=== PATIENT | male | born 1990 | race Caucasian/White ===

== ENCOUNTER → 2017-12-17 12:28 | Outpatient (CLI) | payer MEDICAID, SELFPAY ==
--- NOTE | 2017-12-17 12:33 | RAD_ITS ---
STUDY: X-RAY - ABDOMEN/PELVIS REASON FOR EXAM: Male, 27 years old. Abdominal pain x1 week TECHNIQUE: AP supine and upright views of the abdomen and pelvis. COMPARISON: Prior study of 11/12/2014 FINDINGS: Normal visualized lung bases. There is an unremarkable bowel gas pattern. There is no demonstrated free abdominal air. The visualized liver, spleen and kidneys are grossly normal in size and morphology. Normal soft tissue structures. Normal visualized osseous structures. RAD/Abd Inc Decub and/or Erect IMPRESSION: Normal x-ray examination of the abdomen and pelvis. Electronically Signed: Mata Mark MD at 21:47 EDT , Service support ,
== END ==
PROVIDERS: Family Provider Family Medicine; PCP Family Medicine; Visit Provider Family Medicine
DX: R10.9 Unspecified abdominal pain (principal)
CPT/HCPCS: 74019

== ENCOUNTER → 2017-12-27 09:07 | Outpatient (CLI) | payer MEDICAID, SELFPAY ==
--- NOTE | 2017-12-27 09:12 | US_ITS ---
STUDY: ABDOMINAL ULTRASOUND - RIGHT UPPER QUADRANT REASON FOR VISIT: Male, 27 years old. Abdominal pain. TECHNIQUE: Ultrasound evaluation of the right upper quadrant was performed with real-time and static chung-scale imaging. TECHNICAL QUALITY: Adequate. COMPARISON: Comparison is made with prior study dated July 22, 2017. FINDINGS: Liver: The liver measures 14.2 cm. There is increased echogenicity consistent with fatty infiltration. The bile ducts are within normal limits. There is hepatic color flow. The direction of portal flow is hepatopetal. There is no demonstrated mass lesion. Gallbladder: Normal distended gallbladder. The gallbladder wall measures 3.0 mm. There is a negative sonographic Tovar's sign. There is no pericholecystic fluid. There are no gallstones. Once again, echogenic foci are seen adherent to the gallbladder wall suggestive of gallbladder polyps. Common Bile Duct (C.B.D.): The common bile duct measures 4.0 mm. Pancreas: There is nonvisualization of the pancreas due to overlying bowel gas. Right Kidney: Normal size of the right kidney. The right kidney measures 11.5 cm x 5.5 cm x 4.5 cm. Normal renal cortex. The right cortex measures 1.5 cm. There is no demonstrated renal mass or cyst. There is no right hydronephrosis. US/Abdomen Limited IMPRESSION: Fatty infiltration of the liver. Findings suggestive of gallbladder polyps. Electronically Signed: Wil Motley MD at 11:09 EDT Tel [phone], Service support ,
== END ==
PROVIDERS: Family Provider Family Medicine; PCP Family Medicine; Visit Provider Family Medicine
DX: R10.9 Unspecified abdominal pain (principal)
CPT/HCPCS: 76705

== ENCOUNTER → 2018-01-02 11:36 | Outpatient (CLI) | payer MEDICAID, SELFPAY ==
--- NOTE | 2018-01-02 11:37 | NM_ITS ---
CLINICAL: 27-year-old male with reported history of abdominal pain. RADIONUCLIDE HEPATOBILIARY SCINTIGRAPHY COMPARISON: Abdominal ultrasound report 12/27/2017 FINDINGS: Following the intravenous administration of 6.0 mCi of 99m Tc Mebrofenin, hepatobiliary images reveal: 1. Relatively prompt and homogeneous radiopharmaceutical concentration is noted by a normal sized liver. No parenchymal defects are identified. 2. Gallbladder activity is identified at 15 minutes post radiopharmaceutical administration. 3. Small intestinal tract is observed at 60 minutes following tracer injection. 4. Washout of the radiopharmaceutical by the hepatic parenchyma appears qualitatively normal. NM/Hepatobilliary Imaging IMPRESSION: 1. NORMAL 99m Tc Mebrofenin hepatobiliary imaging examination. A. Visualization of the gallbladder within 60 minutes post radiopharmaceutical administration excludes acute cholecystitis with 97% certitude. (Anusha et al, Nucl Med [employer] pg. 35, 1980). B. Further evaluation of this individual may be undertaken utilizing CCK augmented hepatobiliary scintigraphy if clinically indicated. (Raisa Brown al, J Nucl Med 32: 1695, 1990). Electronically Signed: Edgar Casey DO at 23:20 EDT Tel , Service support ,
== END ==
PROVIDERS: Family Provider Family Medicine; PCP Family Medicine; Visit Provider Family Medicine
DX: R10.9 Unspecified abdominal pain (principal)
CPT/HCPCS: 78226; A9537

== ENCOUNTER → 2018-01-13 09:20 | Outpatient (CLI) | payer MEDICAID, SELFPAY ==
--- NOTE | 2018-01-13 09:23 | NM_ITS ---
CLINICAL: 27-year-old male with reported history of abdominal pain. RADIONUCLIDE HEPATOBILIARY SCINTIGRAPHY COMPARISON: Hepatobiliary scintigraphy study dated 01/02/2018, abdominal ultrasound report 12/27/2017 FINDINGS: Following the intravenous administration of 5.5 mCi of 99m Tc Mebrofenin, hepatobiliary images reveal: 1. Relatively prompt and homogeneous radiopharmaceutical concentration is noted by a normal sized liver. No parenchymal defects are identified. 2. Gallbladder activity is identified at 15 minutes post radiopharmaceutical administration. 3. Small intestinal tract is observed at 45 minutes following tracer injection. 4. Washout of the radiopharmaceutical by the hepatic parenchyma appears qualitatively normal. The patient was administered a fatty meal (8 ounces BOOST-30 grams fat). The post fatty meal consumption gallbladder ejection fraction calculated at 60 minutes was noted to be 38.0 % (normal greater than 30%). NM/Hepatobilliary Img w/Pharm Int IMPRESSION: 1. NORMAL 99m Tc Mebrofenin hepatobiliary imaging examination with fatty meal ingestion. A. A gallbladder ejection fraction calculated to be greater than 30% following the administration of a consumed fatty meal makes the probability of functional hepatobiliary disease (gallbladder and/or sphincter of Oddi dyskinesia) and/or organic hepatobiliary disease (chronic acalculous cholecystitis and/or cystic duct syndrome) to be low. (Karri and Tae, J Nucl Med 43: 1603, 2002). Electronically Signed: Edgar Casey DO at 22:52 EDT Tel , Service support ,
== END ==
PROVIDERS: Family Provider Family Medicine; PCP Family Medicine; Visit Provider Family Medicine
DX: R10.11 Right upper quadrant pain (principal)
CPT/HCPCS: 78227; A9537

== ENCOUNTER 2020-09-04 13:17 | Emergency (ER) | payer MEDICAID, SELFPAY ==
[2020-09-04 13:17] VITALS: BP 126/60; PULSE 94; RESP 14; TEMP 36.2; O2SAT 96; BMI 33.3
--- NOTE | 2020-09-04 13:37 | EKG12_ITS ---
Test Reason : Blood Pressure : / mmHG Vent. Rate : 075 BPM Atrial Rate : 075 BPM P-R Int : 140 ms QRS Dur : 094 ms QT Int : 388 ms P-R-T Axes : 017 -06 005 degrees QTc Int : 433 ms Normal sinus rhythm Normal ECG No previous ECGs available Confirmed by ADELITA JACOBS, LIANE ([id number]), supervising editor news reel BRI AVILA ([id number]) on 09/26/2020 11:25:06 AM Referred By: RADHA/DEIDRE Confirmed By:CHRISTINA UREÑA MD
--- NOTE | 2020-09-04 13:37 | CT_ITS ---
STUDY: CT ABDOMEN AND PELVIS WITH CONTRAST REASON FOR EXAM: Male, 30 years old. Left upper quadrant pain RADIATION DOSAGE (If Supplied By Facility): CTDIvol = ( 16.02 ) mGy, DLP = ( 1118.59 ) mGycm TECHNIQUE: CT images were obtained from the dome of the diaphragm to the symphysis pubis without oral contrast. IV 100mL Isovue-300 was administered. Sagittal and coronal images were reconstructed. Individualized dose optimization techniques were used for this CT. COMPARISON: None. FINDINGS: The visualized lung bases are unremarkable. The visualized portions of the heart are within normal limits. Liver is moderately to severely enlarged without cirrhosis.. Normal gallbladder and extrahepatic biliary system. Spleen is moderately enlarged.. Normal pancreas. Normal bilateral adrenal glands. Normal right kidney. Normal left kidney. Normal visualized stomach. Normal small intestine. Normal colon. The appendix is visualized and appears normal. Normal abdominal aorta. Normal inferior vena cava. BMI is elevated with intra-abdominal adiposity. This is a benign metabolically adverse condition associated with accelerated atherosclerosis and diabetes. Normal urinary bladder. Normal abdominal wall. Normal osseous structures. CT/Abdomen/Pelvis W IV Cont ONLY IMPRESSION: 1. Hepatosplenomegaly. Medical evaluation is advised. This does not require dedicated liver or spleen imaging. 2. No acute findings. Electronically Signed: Michael Walton, at 16:02 EST Tel , Service support ,
[2020-09-04] MEDS: Mag Hydrox/Al Hydrox/Simeth 30 ML UDC PO (13:50)
--- NOTE | 2020-09-04 13:59 | ED.VIS.GEN ---
History of Present Illness Chief Complaint: Abd Pain Informant: Patient Narrative: Patient is a 30-year-old male with a past medical history of cerebral palsy who presents to the emergency department for left upper quadrant abdominal pain. His initial symptoms started yesterday. He currently rates the pain as a 3 out of 10. It does not radiate. He is never had this before. No known aggravating or relieving factors. Denies any previous abdominal surgeries. Denies any chest pain or shortness of breath. No nausea or vomiting. No change in bowel habits. No urinary symptoms. He denies any cough. He has not tried taking anything for this. Past Medical History - Allergies and Home Meds Allergies/Adverse Reactions: Allergies No Known Allergies Allergy (Verified 09/04/20 13:20) Primary Care Physician: Rica Corea MD [Primary Care Provider] - Prior records reviewed: Yes Surgical History: noncontributory Smoking Status: Never smoker - Family History Maternal Family History: Reports: No pertinent history Review of Systems All systems negative except as indicated General: Denies: Chills, Fever, Sweats Eyes: Denies: Visual changes - bilaterally, Diplopia ENT: Denies: Rhinorrhea, Sore throat Cardiovascular: Denies: Chest pain, Palpitations Respiratory: Denies: Dyspnea, Cough, Dyspnea on exertion Gastrointestinal: Reports: Abdominal pain. Denies: Nausea, Vomiting, Diarrhea, Melena, Hematochezia Genitourinary: Denies: Dysuria, Hematuria, Frequency Musculoskeletal: Denies: Back pain, Extremity Pain Skin: Denies: Rash, Wounds Neurological: Denies: Headache, Weakness, Numbness Physical Exam Vital Signs/Narrative: Vital Signs Temp Pulse Resp BP Pulse Ox 09/04/20 13:17 97.2 F L 94 14 126/60 H 96 Inital Vital Signs reviewed: Yes General: Well nourished, Well developed, No Acute Distress Head: Normocephalic, Atraumatic Eyes: Perrl, EOMI ENT: Moist mucous membranes, No rhinorrhea Neck: Supple, Nontender Cardiovascular: Regular rate, Regular rhythm, No murmurs Respiratory: No distress, CTA bilaterally, Chest nontender Abdomen: Soft, Nondistended, Normal bowel sounds, Tender - Left upper quadrant to epigastrium, - - No pain over McBurney's point. Negative for: Tovar's sign Back: Nontender, Normal Inspection Extremities: Nontender, No edema Skin: Normal color, No rash Neurological: Alert, Cranial nerves II-XII grossly intact, Normal Strength, Normal Sensation Psychological: Normal affect, Normal Mood Diagnostic/Tx/Re-eval - EKG Initial EKG Interpretation: - - Rate of 75 bpm and normal sinus rhythm. Normal intervals. Normal axis. No ST elevations or depressions. No T wave abnormalities. - Medical Decision Making Patient presents to the ED for left upper quadrant abdominal pain. He does have tenderness in that region. Will trial a GI cocktail for symptomatic treatment. Basic lab work and CT scan of the abdomen/pelvis being obtained. Patient's lab work did not reveal any significant acute abnormality. CT scan of the abdomen/pelvis is currently pending. Will disposition based on these findings. He is feeling better after GI cocktail. As long as his CT scan is negative we will write a prescription for Carafate for home symptomatic control. He is to follow-up with his PCP. They understand and are agreeable this plan. ED Disposition - Plan for ED Patient: Disposition: Home or Assisted Living Diagnosis: Abdominal pain Instructions: Abdominal Pain Prescriptions: Sucralfate [Carafate] 1 gm PO 4X/DAY 5 Days #20 tab Prescription Printed Referrals: Rica Corea MD [Primary Care Provider] - 3-5 Days
[2020-09-04 14:23] LABS: Absolute Lymphocyte Count 2.58 X10^3/uL (0.83-4.51); Absolute Neutrophil Count 5.5 X10^3/uL (2.0-7.7); Basophil# 0.03 X10^3/uL; Basophil% 0.3 % (0-1); Eosinophil# 0.16 X10^3/uL; Eosinophils% 1.8 % (0-5); Hematocrit 46.2 % (40-54); Hemoglobin 15.4 g/dL (13.0-16.5); Lymphocyte # 2.58 X10^3/ul (4.0); Lymphocyte % 28.9 % (19-41); Mean Corp Hgb Conc 33.3 g/dL (32-36); Mean Corpuscular Hgb 28.2 pg (27.0-32.0); Mean Corpuscular Volume 84.6 fL (80-94); Mean Platelet Vol. 9.1 fl (6.2-12.0); Monocyte# 0.62 X10^3/uL; Monocyte% 6.9 % (0-10); NRBC Flagged by Analyzer 0 % (0-5); Neutrophil # 5.52 X10^3/uL (2.7-7.7); Neutrophil % 61.8 % (47-70); Platelet Count 386 K/mm3 (150-450); RBC Distribution Width CV 12.7 % (11.6-14.6); RBC Distribution Width SD 38.5 fl (35.1-43.9); Red Blood Count 5.46 M/mm3 (4.6-6.2); White Blood Count 8.9 K/mm3 (4.4-11.0)
[2020-09-04 14:30] VITALS: PULSE 90; RESP 15
[2020-09-04 14:44] LABS: AST(SGOT) 26 U/L (15-37); Alanine Aminotransfer ALT/SGPT 49 U/L (16-61); Albumin, Serum 3.9 g/dL (3.2-5.0); Alkaline Phosphatase 95 U/L (45-117); Anion Gap 6 (5-15); BUN 15 mg/dL (7-18); BUN/Creat Ratio 25.2 RATIO (10-20); Calcium,Total 9.3 mg/dL (8.5-10.1); Chloride 108 mmol/L (98-107); EST Glomerular Filtration Rate 170 mL/min (>60); Est Glom Filt Rate - Afr Amer 205 mL/min (>60); Glucose 88 mg/dL (74-106); Lipase 84 U/L (73-393); Protein, Total 7.9 g/dL (6.4-8.2); Sodium Level 140 mmol/L (136-145)
[2020-09-04 16:15] VITALS: BP 124/75; PULSE 88; RESP 16
== END 2020-09-04 16:16 | disposition home or self-care (01) ==
PROVIDERS: Emergency Provider Emergency Medicine; PCP Family Medicine
DX: R10.12 Left upper quadrant pain (principal); G80.9 Cerebral palsy, unspecified
CPT/HCPCS: 74177; 80053; 83690; 84484; 85025; 93005; 99285; Q9967; A4216

== ENCOUNTER → 2020-09-12 16:53 | Outpatient (CLI) | payer MEDICAID, SELFPAY ==
[2020-09-04 13:17] VITALS: BMI 33.3
[2020-09-12 17:49] LABS: Absolute Neutrophil Count 4.6 X10^3/uL (2.0-7.7); Basophil# 0.03 X10^3/uL; Basophil% 0.4 % (0-1); Eosinophil# 0.15 X10^3/uL; Eosinophils% 1.9 % (0-5); Hematocrit 46.3 % (40-54); Hemoglobin 15.3 g/dL (13.0-16.5); Lymphocyte % 32.9 % (19-41); Mean Corpuscular Hgb 27.8 pg (27.0-32.0); Mean Corpuscular Volume 84.2 fL (80-94); Mean Platelet Vol. 9.3 fl (6.2-12.0); Monocyte# 0.54 X10^3/uL; Monocyte% 6.8 % (0-10); NRBC Flagged by Analyzer 0 % (0-5); Neutrophil # 4.57 X10^3/uL (2.7-7.7); Neutrophil % 57.7 % (47-70); Platelet Count 420 K/mm3 (150-450); RBC Distribution Width CV 12.5 % (11.6-14.6); RBC Distribution Width SD 38.6 fl (35.1-43.9); White Blood Count 7.9 K/mm3 (4.4-11.0)
[2020-09-12 18:18] LABS: Internal QC Validated? YES +Cl - CLEAR BKGD; Monotest Negative (Negative)
[2020-09-13 08:59] LABS: Hepatitis B Surface Antibody Non-Reactive; Hepatitis B Surface Antigen Non-Reactive (Nonreactive); Hepatitis C Antibody Non-Reactive (Nonreactive)
[2020-09-14 20:07] LABS: Hepatitis Be Ab Negative (Negative); Hepatitis Be Ag Negative (Negative)
[2020-09-14 21:05] LABS: Hepatitis B Core Ab Total Negative (Negative)
== END ==
PROVIDERS: PCP Family Medicine; Visit Provider Family Medicine
DX: R16.2 Hepatomegaly with splenomegaly, not elsewhere classified (principal); R10.9 Unspecified abdominal pain
CPT/HCPCS: 36415; 85025; 86308; 86704; 86706; 86707; 86803; 87340; 87350

== ENCOUNTER → 2020-09-16 08:27 | Outpatient (CLI) | payer MEDICAID, SELFPAY ==
[2020-09-04 13:17] VITALS: BMI 33.3
--- NOTE | 2020-09-16 08:31 | US_ITS ---
STUDY: ABDOMINAL ULTRASOUND REASON FOR EXAM: Male, 30 years old. HEPATOSPLENOMEGALY TECHNIQUE: Transabdominal ultrasound was performed with real-time and static chung scale imaging. TECHNICAL QUALITY: Adequate. COMPARISON: Comparison is made with prior study dated 12/27/2017. FINDINGS: Liver: The liver measures 17.5 cm. There is increased echogenicity consistent with fatty infiltration. The bile ducts are within normal limits. There is hepatic color flow. The direction of portal flow is hepatopetal. There is no demonstrated mass lesion. Portal vein measurement: Gallbladder: Normal distended gallbladder. The gallbladder wall measures 4 mm. There is a negative sonographic Tovar''s sign. There is no pericholecystic fluid. There are no gallstones. Sludge is seen within the gallbladder lumen. There is a 1.2 sono by 1 cm echogenic density in the neck of the gallbladder. This may represent either tumefactive sludge or a bladder polyp. Common Bile Duct (C.B.D.): The common bile duct measures 4 mm. Pancreas: Normal size of the head, body and tail of the pancreas. There is normal echogenicity of the pancreas. There is no demonstrated pancreatic mass or cyst. Spleen: There is splenomegaly. The spleen measures 14.2 cm x 6.7 cm x 4.8 cm. Right Kidney: Normal size of the right kidney. The right kidney measures 11.1 cm x 5 cm x 4.5 cm. Normal renal cortex. The right cortex measures 1.5 cm. There is no demonstrated renal mass or cyst. There is no right hydronephrosis. Left Kidney: Normal size of the left kidney. The left kidney measures 12.2 cm x 4.8cm x 4.6 cm. Normal renal cortex. The left cortex measures 1.4 cm. There is no demonstrated renal mass or cyst. There is no left hydronephrosis. Aorta: Unremarkable I.V.C.: The IVC is patent. There is no ascites. US/Abdomen Complete IMPRESSION: Fatty infiltration of the liver. Echogenic focus in the neck of the gallbladder suggestive of either gallbladder polyp or tumefactive sludge. Electronically Signed: Wil Motley, at 10:19 EST , Service support ,
== END ==
PROVIDERS: PCP Family Medicine; Referring Provider Family Medicine; Visit Provider Family Medicine
DX: R16.2 Hepatomegaly with splenomegaly, not elsewhere classified (principal)
CPT/HCPCS: 76700

== ENCOUNTER → 2020-12-12 12:45 | Outpatient (CLI) | payer MEDICAID, SELFPAY ==
[2020-09-28 14:52] VITALS: BMI 36.6
--- NOTE | 2020-12-12 12:47 | CT_ITS ---
INDICATION: HEPATOSPLENOMEGALY, R/O NHL -- IV AND ORAL CONTRAST PER DR. ANAYA EXAMINATION: CT CHEST WITH CONTRAST - CT Chest W/ Contrast Injection TECHNIQUE: Helically acquired images were obtained of the chest following IV contrast. A radiation dose optimization technique was used for this scan. IV Contrast dosage and agent: COMPARISON: None. FINDINGS: LUNGS, PLEURA AND LARGE AIRWAYS: No masses, consolidation, or edema. No pleural effusion or thickening. No pneumothorax. THYROID: No thyroid lesions. HEART AND PERICARDIUM: Heart size is normal. No pericardial effusion. VESSELS: Thoracic aorta is not dilated. No aortic dissection. No obvious central pulmonary embolism although this study was not performed with the pulmonary embolism protocol. MEDIASTINUM AND COURTNEY: No mediastinal or hilar adenopathy. Esophagus is unremarkable. No hiatal hernia. UPPER ABDOMEN: The spleen measures 15.4 cm in axial dimension. BONES: No suspicious lytic or blastic abnormality. Healed sternal fractures. CT/Chest WITH Contrast IMPRESSION: No evidence of acute cardiopulmonary pathology. Other findings as noted. Electronically Signed: Remi Hunter MD at 14:40 EDT Tel , Service support ,
--- NOTE | 2020-12-12 12:47 | CT_ITS ---
STUDY: CT ABDOMEN AND PELVIS WITH CONTRAST REASON FOR EXAM: Male, 30 years old. HEPATOSPLENOMEGALY, R/O NHL -- IV AND ORAL CONTRAST PER DR. ANAYA RADIATION DOSAGE (If Supplied By Facility): CTDIvol = ( 19.52 ) mGy, DLP = ( 1597.72 ) mGycm TECHNIQUE: Transaxial images were obtained from the dome of the diaphragm to the symphysis pubis without oral contrast. Oral and amp; IV REDICAT and amp; 100ML ISOVUE 300 was administered. Sagittal and coronal images were reconstructed. Individualized dose optimization techniques were used for this CT. COMPARISON: 09/04/2020. FINDINGS: Lung bases clear. Unremarkable liver, pancreas, adrenals, and bilateral kidneys. Slight interval worsening of splenomegaly measuring 15.8 cm on the current study compared to 15.1 cm on the prior study. No abdominal or pelvic adenopathy. No definite cholelithiasis. Normal appendix. Bowel loops nonobstructed. No free air or free fluid. Intact abdominal aorta and its major branches. Sections through the pelvis demonstrate borderline enlargement of the prostate. The urinary bladder is incompletely distended. Tiny bone islands in the pelvic are redemonstrated. No suspicious sclerotic or lytic lesion. CT/Abdomen/Pelvis WITH Contrast IMPRESSION: Slight interval worsening in splenomegaly. No adenopathy in the abdomen and pelvis. Electronically Signed: Redd June MD at 1:24 EDT Tel , Service support ,
== END ==
PROVIDERS: PCP Family Medicine; Referring Provider Internal Medicine Medical Oncology; Visit Provider Internal Medicine Medical Oncology
DX: R16.2 Hepatomegaly with splenomegaly, not elsewhere classified (principal)
CPT/HCPCS: 71260; 74177; Q9967

== ENCOUNTER → 2020-12-15 12:48 | Outpatient (CLI) | payer MEDICAID, SELFPAY ==
[2020-09-28 14:52] VITALS: BMI 36.6
== END ==
PROVIDERS: PCP Family Medicine; Referring Provider Internal Medicine Medical Oncology; Visit Provider Internal Medicine Medical Oncology
DX: R16.2 Hepatomegaly with splenomegaly, not elsewhere classified (principal)

== ENCOUNTER → 2021-05-02 15:45 | Outpatient (CLI) | payer MEDICAID, SELFPAY ==
--- NOTE | 2021-05-02 15:47 | CT_ITS ---
STUDY: CT ABDOMEN AND PELVIS WITH CONTRAST REASON FOR EXAM: Male, 30 years old. splenomegaly, LUQ pain RADIATION DOSAGE (If Supplied By Facility): CTDIvol = ( 18.35 ) mGy, DLP = ( 1196.34 ) mGycm TECHNIQUE: Transaxial images were obtained from the dome of the diaphragm to the symphysis pubis with oral contrast. Oral and amp; IV Readi-CAT and amp; 100mL Isovue-300 was administered. Sagittal and coronal images were reconstructed. Individualized dose optimization techniques were used for this CT. COMPARISON: 12/12/2020 FINDINGS: The visualized lung bases are unremarkable. The visualized portions of the heart are within normal limits. There is hepatomegaly with diffuse hepatic enlargement. The gallbladder is contracted. There is mild splenomegaly. Normal pancreas. Normal bilateral adrenal glands. Normal right kidney. Normal left kidney. Normal visualized stomach. Normal small intestine. Normal colon. The appendix is visualized and appears normal. Normal abdominal aorta. Normal inferior vena cava. Normal retroperitoneum. Normal urinary bladder. Normal abdominal wall. Normal osseous structures. CT/Abdomen/Pelvis WITH Contrast IMPRESSION: No change or acute abnormality. Hepatomegaly. Mild splenomegaly. Electronically Signed: Johnny Hope MD at 16:35 EDT , Service support ,
== END ==
PROVIDERS: PCP Family Medicine; Referring Provider Nurse Practitioner Family; Visit Provider Nurse Practitioner Family
DX: R16.1 Splenomegaly, not elsewhere classified (principal); R10.12 Left upper quadrant pain
CPT/HCPCS: 74177; Q9967

== ENCOUNTER 2021-11-10 17:19 | Emergency (ER) | payer MEDICAID, SELFPAY ==
[2021-11-10 17:20] VITALS: BP 141/79; PULSE 95; RESP 16; TEMP 36; O2SAT 98; BMI 40.4
--- NOTE | 2021-11-10 18:16 | CM.ED ---
Social Work Consult: Mental Health Referral source: Dr. Kerr Chief Complaint: Patient reports to have had a bad day. Patient wanted to come to the ED to talk to someone. Marital/Social History: Single. Patient mother, Jojo Flaherty has guardianship of patient. Living Situation: Lives with mother in a private home. Support/Resources: Active with the counseling center of [facility] for counseling services. Reports support from mom. History: Denies Education/Employment History: Graduated from high school. Reports some issues with reading and writing. Mental Health Treatment/History: Schizophrenia. Patient reports to only be taking Metamucil. Patient reports history of inpatient psychiatric placement to [facility] several years ago. Triggers/Stressors: Patient reports to have had a bad day due to a client yelling at me for no reason. Coping Skills: going upstairs. Patient states that patient room is upstairs. Patient reports to enjoy watching TV and this helps. Abuse Issues: Denies Substance Abuse Hx: Denies Risk to Self/Others: Denies suicidal thoughts, plans, intents. Patient reports last suicidal thought was before I went to [facility]. Patient reports history of attempting to hang self in middle school when people were making fun of me. Patient denies homicidal thoughts, plans, intents. Patient denies violence against others. Mental Status Exam: A&Ox3 Appearance/General Behavior: Clean. Calm. Mood/Affect: Appropriate. Communication Pattern: Responds to questions. Initiates conversation. Thought Process: Denies current auditory or visual hallucinations. Judgement: Fair Assessment: Met with patient in room. Introduced self and social studies teacher role. Patient agreeable to speak with this social studies teacher. Patient states to have gotten upset about something at work today. Patient states to have wanted to talk with someone and to have called crisis. Patient states to have not wanted to wait for crisis to call patient so patient hung up the phone and then crisis called the police to do a wellness check. Patient wanted to come with the police to the hospital to have someone to talk to. Patient was not pink slipped to the ED. Patient denies suicidal thoughts today. Patient states to be feeling better and to feel safe returning to home. Telephone call to patient mother, Jojo. Jojo reports that patient was not reporting suicidal thoughts but was upset. Jojo states he just said he had a bad day. Jojo is comfortable with patient returning to home. Telephone call to crisis, Nancy. Nancy reports to have not gotten a chance to talk with patient before patient hung up the phone. Nancy denies patient making any suicidal comments. Collaborating with Dr. Kerr. This social studies teacher recommending safety plan to come with continued mental health services through the community. Dr. Kerr agreeable with recommendation. This social studies teacher completing safety plan with patient. Lethal means counseling completed with patient and Jojo. Jojo plans to provide transportation to home for patient and ask to be called when patient is ready for discharge. This social studies teacher updated nursing on above information. Nursing to call Jojo when patient is ready for discharge. PLAN: discharge to home. No further services indicated. Nikunj Solis MSW, DAMIS
--- NOTE | 2021-11-10 18:44 | EX.ED.VIS.PS ---
HPI HPI - Psych History of Present Illness Chief Complaint: Mental Health Narrative Narrative: Patient was feeling upset and wanted to talk to crisis. He was feeling sick of holding and thus hung up. Crisis called EMS who brought the patient here. He tells me he was depressed but he was not suicidal he had no suicidal ideations he has no current suicidal ideations he has no plan. He essentially feels much improved. He does have a history of cerebral palsy but he is lucid coherent and gives me a reasonable history and review of systems. PFSH PFS Medical History Abnormal findings on diagnostic imaging of other abdominal regions, including retroperitoneum Abnormal findings on diagnostic imaging of other parts of digestive tract ADD (attention deficit disorder) Attention deficit hyperactivity disorder Depression Hepatosplenomegaly Infantile cerebral palsy Splenomegaly Home Medications mineral oil 5 ml PO DAILY 07/22/17 [History Last Taken Unknown] psyllium husk (with sugar) [Metamucil (with sugar)] 5 ml PO DAILY 07/22/17 [History Last Taken Unknown] polyethylene glycol 3350 17 g PO DAILY 09/26/20 [History Last Taken Unknown] Allergy/AdvReac Type Severity Reaction Status Date / Time No Known Allergies Allergy Verified 06/05/21 14:26 Family History Mother Seizures Social History Smoking Status: Never smoker ROS ROS ED ROS Narrative Past medical history: Reviewed Medications: Reviewed Social history: Noncontributory Review of systems: All systems negative except as indicated General: No fever Eyes: No visual changes ENT: No upper airway congestion, normal voice Neck: No neck pain Cardiovascular: No chest pain Respiratory: No shortness of breath or cough Gastrointestinal: No abdominal pain, nausea vomiting or diarrhea Genitourinary: No dysuria Musculoskeletal: Denies myalgias no difficulty with ambulation Skin: No rash Neurological: No memory loss, confusion or any focal weakness Psych: Admits to being sad and depressed but no suicidal factors. He does not give me a reason for his depression. Hematologic: No easy bleeding or easy bruising EXAM Physical Exam Narrative Exam Narrative: Physical exam General: Well nourished, Well developed, No Acute Distress. CP features. Head: Normocephalic, Atraumatic Eyes: Conjunctiva not pale ENT: Moist mucous membranes Neck: Supple, Nontender, No lymphadenopathy Cardiovascular: Regular rate, Regular rhythm Respiratory: No distress, CTA bilaterally Abdomen: Soft, Nontender, Nondistended Back: Nontender, Normal Inspection. Negative for: CVA tenderness Extremities: Nontender, No edema Skin: Normal color, No rash Neurological: Alert, Normal Strength, Normal Sensation Psychological: Slightly flat affect, he answers questions appropriately. No suicidal ideations. Const Vital Signs: 11/10/21 17:20 Temperature 96.8 F L Temperature Source Temporal Pulse Rate 95 Respiratory Rate 16 Blood Pressure 141/79 H Blood Pressure Mean 99 Pulse Ox 98 Oxygen Delivery Method Room Air MDM MDM MDM Narrative Medical decision making narrative: Patient was seen by social work and discussed with crisis. Patient has no suicidal homicidal ideations and does not meet inpatient criteria he will be discharged. We talked to mother and sometimes he gets angry and this is what happened today. Discharge Plan Triage Chief Complaint: Mental Health ED Provider: Jean Paul Kerr Dx/Rx/DC Orders Clinical Impression: Depression Instructions: Depression: Tips to Help Yourself Prescriptions: No Action mineral oil 1 ML oil 5 ml PO DAILY RF: 0 psyllium husk (with sugar) [Metamucil (with sugar)] 575 GM powder 5 ml PO DAILY RF: 0 polyethylene glycol 3350 17 GM packet 17 g PO DAILY RF: 0 Primary Care Provider: Rica Corea Referrals: Rica Corea MD [Primary Care Provider] - Disposition Disposition: Home, Self Care
== END 2021-11-10 19:42 | disposition home or self-care (01) ==
PROVIDERS: Emergency Provider Emergency Medicine; PCP Family Medicine; Visit Provider Emergency Medicine
DX: F32.A Depression, unspecified (principal); G80.9 Cerebral palsy, unspecified
CPT/HCPCS: 99282

== ENCOUNTER → 2022-02-06 | Outpatient (CLI) | payer MEDICAID, SELFPAY ==
--- NOTE | 2022-02-06 08:09 | US_ITS ---
STUDY: ABDOMINAL ULTRASOUND REASON FOR EXAM: Male, 31 years old. ABDOMINAL PAIN TECHNIQUE: Transabdominal ultrasound was performed with real-time and static chung scale imaging. TECHNICAL QUALITY: Adequate. COMPARISON: None. FINDINGS: Liver: The liver measures 17.4 cm. There is increased echogenicity consistent with fatty infiltration. The bile ducts are within normal limits. There is hepatic color flow. The direction of portal flow is hepatopetal. There is no demonstrated mass lesion. Portal vein measurement: Gallbladder: Normal distended gallbladder. The gallbladder wall measures 2 mm. There is a negative sonographic Tovar''s sign. There is no pericholecystic fluid. There are gallbladder polyps. Common Bile Duct (C.B.D.): The common bile duct measures 2 mm. Pancreas: Normal size of the head, body and tail of the pancreas. There is normal echogenicity of the pancreas. There is no demonstrated pancreatic mass or cyst. Spleen: There is splenomegaly. The spleen measures 13.7 cm. Right Kidney: Normal size of the right kidney. The right kidney measures 10.2 cm. Normal renal cortex. The right cortex measures 1.2 cm. There is no demonstrated renal mass or cyst. There is no right hydronephrosis. Left Kidney: Normal size of the left kidney. The left kidney measures 11.5 cm. Normal renal cortex. The left cortex measures 1.5 cm. There is no demonstrated renal mass or cyst. There is no left hydronephrosis. Aorta: No abdominal aortic aneurysm. I.V.C.: The IVC is patent. There is no ascites. US/Abdomen Complete IMPRESSION: 1. Cholesterolosis. 2. Fatty infiltration of the liver. 3. Splenomegaly. Electronically Signed: Edgar Singh MD at 9:26 EDT ,
== END | disposition home or self-care (01) ==
LOC: US 08:04
PROVIDERS: PCP Family Medicine; Referring Provider Family Medicine; Visit Provider Family Medicine
DX: R10.9 Unspecified abdominal pain (principal)
CPT/HCPCS: 76700

== ENCOUNTER 2022-02-20 13:49 | Emergency (ER) | payer MEDICAID, SELFPAY ==
[2022-02-20 13:50] VITALS: BP 150/87; PULSE 124; RESP 17; TEMP 36.2; O2SAT 97; BMI 36.6
--- NOTE | 2022-02-20 13:57 | ED.RN ---
PT TELLS THIS RN HE WOULD STAB HIMSELF WITH A KNIFE. STATES NO ONE INCIDENT TRIGGERED TOKAYS FEELINGS
[2022-02-20 15:01] LABS: Absolute Lymphocyte Count 1.73 X10^3/uL (0.83-4.51); Basophil# 0.02 X10^3/uL; Basophil% 0.2 % (0-1); Eosinophil# 0.01 X10^3/uL; Eosinophils% 0.1 % (0-5); Hematocrit 46.1 % (40-54); Hemoglobin 15.8 g/dL (13.0-16.5); Lymphocyte # 1.73 X10^3/ul (0.83-4.51); Mean Corp Hgb Conc 34.3 g/dL (32-36); Mean Corpuscular Hgb 29.3 pg (27.0-32.0); Mean Corpuscular Volume 85.5 fL (80-94); Mean Platelet Vol. 8.9 fl (6.2-12.0); Monocyte# 0.53 X10^3/uL; Monocyte% 4.3 % (0-10); NRBC Flagged by Analyzer 0 % (0-5); Neutrophil % 80.8 % (47-70); Platelet Count 439 K/mm3 (150-450); RBC Distribution Width CV 12.3 % (11.6-14.6); RBC Distribution Width SD 38.1 fl (35.1-43.9); Red Blood Count 5.39 M/mm3 (4.6-6.2); White Blood Count 12.4 K/mm3 (4.4-11.0)
--- NOTE | 2022-02-20 15:04 | CM.ED ---
Social Work Psychiatric Assessment Reason for consult: Suicidal Ideation. Patient presents to the ED on a pink slip completed by [facility] Department. Informant(s)Patient, Patient?s mother/guardian and [place] Slip completed by [facility]? Department Chief Complaint: Patient reports that he is at the ED as he had called the police and stated ?I was suicidal?. Patient said that his plan was to ?take a knife and cut myself?. Patient was asked about any trigger regarding his SI and patient said ?It came out of the blue?. Patient said that ?I want to get help?. Patient reports he feels he is ?depressed?. SW asked if there is any trigger to patient?s depression and patient said ?I don?t know what is making me depressed?. Patient reports that his eating is ?ok? and that he has gained weight. Patient reports that he wakes up during the night but is able to go back to sleep. Patient said that his sleep is ?sometimes? ok. Marital/Social History: Marital Status: x Single. Patient?s mother, Jojo Flaherty, has guardianship of patient. Patient reports that he bathes, dresses himself but his mother makes him food. Identified Gender: Male Sexual Orientation: Heterosexual Living Situation: Patient reports that he lives with his mom/guardian (Jojo Flaherty) and brother, Durga. 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 Patient said that [employer] is currently working in [place] due to a ?staff shortage?. History: x No Education and Employment History :Patient graduated from [employer], which is for ?special needs?. Patient had an IEP. Patient reports ?some issues? with reading and writing. Mental Health Treatment/History: ? Yes Per chart patient has a diagnosis of schizophrenia. Patient reports his diagnosis is ADHD and ?Mental Retardation?. Patient stated that he is scheduled to see psychologist [facility]22 and that is his 2nd visit. Patient previously has been to [facility], [facility] and [facility] in the past. Patient said that his most recent psych hospitalization was ?a few years ago?. Patient reports that he is ?active? with [facility]. Patient reports that he is currently not on any psychiatric medication. Patient said that he has not been on psychiatric medication for ?longer than a year? as his mom feels that ?it?s not doing good? it makes me sleepy?. Triggers/Stressors: Patient said that his stressors are ?someone yelling at me or hearing something that is upsetting. Coping Skills: Patient said that his coping skills are watching TV. Abuse Issues: Comments: Patient denied any abuse or neglect history Substance Abuse Hx: x No Risk to Self/Others: ? Suicidal: x thoughts x plans xattempts Comments: Patient reports that the ?suicidal thoughts? started this morning? and his plan was to ?stab himself?. Patient said that in the past , when he was 14-15 he tried to hang himself and had the belt on his neck at that time. ? Homicidal: Denied ? Violence: x to self x to others x objects Comments: Patient reports that he has no violence toward himself. Patient said that ?sometimes he loses control and wants to hit other people? and yesterday he wanted to ?hit my brother?. Patient said that his mom tried to stop him and she was able to stop him and he did not hit his brother. Patient denied breaking objects. Mental Status Exam: Orientation: x Time xPlace xPerson Memory: x Good Appearance/General Behavior:x clean/appropriate x calm other, explain: Poor eye contact Mood/Affect: x depressed Communication Pattern: x responds to questions x does not initiate Thought Process: x appropriate, explain: No evidence of AH/VH General Intellectual Functioning: x Below Average x Developmental Delays? x Connected with Board of DD? Comment: Patient has a Board of DD SSA worker, Hong Kinsey. Judgment: fair Insight: fair SW spoke to patient?s mother/guardian, Jojo Flaherty (Confirmed by [facility] [facility] web site). Jojo reports that Satish has ?spells? without no apparent reason and he gets upset. Jojo said that patient does not get violent. Jojo said that this morning patient said that he was suicidal. Jojo said ?he never follows through on it?. Jojo said that patient is not on medication as she is concerned due to it making him gain weight and ?he is already too heavy?. Jojo said that patient has an [facility]. Jojo said that patient sees Dr. Rojas ?every once and awhile?. Mother was educated that patient?s statements about plan regarding suicidal ideation concern staff and thus patient needs inpatient psych hospitalization and she verbalized understanding and agreement. Jojo said that patient is independent with his ADL?s SW spoke to MD Hurst. He is in agreement with plan to place patient in psychiatric facility for crisis stabilization and medication review. Plan: Inpatient psych Marley SOLIZ
[2022-02-20 15:12] LABS: Amphetamine Urine VISTA NEGATIVE (<1000 ng/mL); Barbiturate Urine VISTA NEGATIVE (< 200 ng/mL); Benzodiazepine Urine VISTA NEGATIVE (< 200 ng/mL); Cocaine Urine VISTA NEGATIVE (< 300 ng/mL); Ecstacy Urine VISTA NEGATIVE (< 500 ng/mL); Methadone Urine VISTA NEGATIVE (< 300 ng/mL); PCP Urine VISTA NEGATIVE (< 25 ng/mL); THC Urine VISTA NEGATIVE (< 50 ng/mL); Vista UDS pH Range 7
[2022-02-20 15:13] LABS: Anion Gap 6 (5-15); BUN 10 mg/dL (7-18); BUN/Creat Ratio 14.4 RATIO (10-20); Calcium,Total 9.5 mg/dL (8.5-10.1); Chloride 112 mmol/L (98-107); EST Glomerular Filtration Rate 140 mL/min (>60); Est Glom Filt Rate - Afr Amer 170 mL/min (>60); Estimated Creatinine Clearance 133.01 ml/min; Glucose 113 mg/dL (74-106); Potassium 3.6 mmol/L (3.5-5.1); Sodium Level 142 mmol/L (136-145)
--- NOTE | 2022-02-20 15:22 | EKG12_ITS ---
Test Reason : MENTAL HEALTH Blood Pressure : / mmHG Vent. Rate : 117 BPM Atrial Rate : 117 BPM P-R Int : 154 ms QRS Dur : 084 ms QT Int : 330 ms P-R-T Axes : 049 -15 016 degrees QTc Int : [address] & T wave abnormality, consider anterior ischemia Abnormal ECG Confirmed by SANDRA JACOBS, NADIA ([id number]), editorial assistant VISHAL PEOPLES ([id number]) on 02/21/2022 10:13:17 AM Referred By: SADIE Confirmed By:NADIA FLORES MD
--- NOTE | 2022-02-20 15:22 | EX.ED.VIS.PS ---
HPI HPI - Psych History of Present Illness Chief Complaint: Mental Health Narrative Narrative: 31-year-old male with history of MR, schizophrenia,, ADHD as well as previous suicide attempt by hanging presenting with suicidal ideation. His current plan is to cut or stab himself with a knife.. He does not admit to any specific triggers other than somebody getting mad or yelling. He [facility] a [facility]. He denies drug or alcohol use. He is not on any psychiatric medication. PFSH PFSH Medical History Abnormal findings on diagnostic imaging of other abdominal regions, including retroperitoneum Abnormal findings on diagnostic imaging of other parts of digestive tract ADD (attention deficit disorder) Attention deficit hyperactivity disorder Depression Hepatosplenomegaly Infantile cerebral palsy Splenomegaly Home Medications NK 02/20/22 [History Last Taken Unknown] Allergy/AdvReac Type Severity Reaction Status Date / Time No Known Allergies Allergy Verified 06/05/21 14:26 Family History Mother Seizures Social History Smoking Status: Never smoker ROS ROS ED Constitutional Constitutional ED: Denies chills or fever(s) Eyes Eyes: Denies blurry vision ENT ENT ED: Denies rhinorrhea or sore throat Cardiovascular Cardiovascular: Denies palpitations or racing heartbeat Respiratory/Chest Respiratory/Chest: Denies cough or dyspnea Gastrointestinal Gastrointestinal: Denies abdominal pain or nausea Genitourinary Genitourinary ED: Denies dysuria or hematuria Musculoskeletal Musculoskeletal: Denies arthralgias or myalgias Integumentary Denies rash Neurologic Neurologic: Denies headache(s) or weakness Psychiatric Psychiatric: Reports depression, suicidal ideation and suicidal thoughts Endocrine Endocrinology: Denies polydipsia or polyuria EXAM Physical Exam Const Vital Signs: 02/20/22 13:50 02/20/22 15:48 02/20/22 18:43 Temperature 97.2 F L Temperature Source Temporal Pulse Rate 124 H 110 H Respiratory Rate 17 16 18 Blood Pressure 150/87 H 141/84 H Blood Pressure Mean 108 103 Pulse Ox 97 96 Oxygen Delivery Method Room Air Room Air 02/20/22 19:00 02/20/22 20:00 Temperature Temperature Source Pulse Rate Respiratory Rate 15 15 Blood Pressure Blood Pressure Mean Pulse Ox Oxygen Delivery Method Room Air Room Air Positive well nourished General Appearance ED: NAD HEENT Reports moist mucous membranes normocephalic and atraumatic Eyes PERRL and EOMs intact bilaterally Resp normal respiratory effort and clear to auscultation bilaterally Cardio Rate: regular rate Rhythm: regular rhythm Neuro CN's II-XII intact bilaterally and no sensory deficits noted Sensorium / Orientation: alert Motor Exam: strength 5/5 throughout Psych Appearance: grossly normal Attitude: calm Insight: poor Judgement: poor Skin Lesions: no lesions Rashes: no rashes MDM MDM MDM Narrative Medical decision making narrative: Patient presents with suicidal ideation and a plan to cut himself with a knife versus stabbing himself. He has a previous attempt of hanging himself. Given this social work did evaluate him and felt he needed inpatient therapy. I do agree. CBC and CMP are unremarkable. Urine drug screen negative. Rapid COVID-negative. EtOH negative. Patient currently medically clear for psychiatric intake. Social work is trying to get him inpatient however they are handing off the case to crisis. Patient will be turned over incoming ED physician for overnight care. He will likely need inpatient placement. Patient has been stable since he has been here. Impression: 1. Suicidal ideation with plan 2. Depression Lab Data Attestation: I reviewed the patient's lab results. Labs: Laboratory Results - last 24 hr 02/20/22 02/20/22 02/20/22 14:45 14:53 14:53 WBC 12.4 H RBC 5.39 Hgb 15.8 Hct 46.1 MCV 85.5 MCH 29.3 MCHC 34.3 RDW Std Deviation 38.1 RDW Coeff of Cesar 12.3 Plt Count 439 MPV 8.9 Immature Gran % (Auto) 0.600 Neut % (Auto) 80.8 H Lymph % (Auto) 14.0 L [place] % (Auto) 4.3 Eos % (Auto) 0.1 Baso % (Auto) 0.2 Absolute Neuts (auto) 10.0 H Absolute Lymphs (auto) 1.73 Nucleated RBC % 0 Sodium 142 Potassium 3.6 Chloride 112 H Carbon Dioxide 24.0 Anion Gap 6 BUN 10 Creatinine 0.70 Estim Creat Clear Calc 133.01 Est GFR (MDRD) Af Amer 170 Est GFR (MDRD) Non-Af 140 BUN/Creatinine Ratio 14.4 Glucose 113 H Calcium 9.5 Urine Opiates Screen NEGATIVE Urine Methadone Screen NEGATIVE Ur Barbiturates Screen NEGATIVE Ur Phencyclidine Scrn NEGATIVE Ur Amphetamines Screen NEGATIVE MDMA (Ecstasy) Screen NEGATIVE U Benzodiazepines Scrn NEGATIVE Urine Cocaine Screen NEGATIVE U Cannabinoids Screen NEGATIVE Ur Drug Screen Comment Ethyl Alcohol 02/20/22 14:53 WBC RBC Hgb Hct MCV MCH MCHC RDW Std Deviation RDW Coeff of Cesar Plt Count MPV Immature Gran % (Auto) Neut % (Auto) Lymph % (Auto) [place] % (Auto) Eos % (Auto) Baso % (Auto) Absolute Neuts (auto) Absolute Lymphs (auto) Nucleated RBC % Sodium Potassium Chloride Carbon Dioxide Anion Gap BUN Creatinine Estim Creat Clear Calc Est GFR (MDRD) Af Amer Est GFR (MDRD) Non-Af BUN/Creatinine Ratio Glucose Calcium Urine Opiates Screen Urine Methadone Screen Ur Barbiturates Screen Ur Phencyclidine Scrn Ur Amphetamines Screen MDMA (Ecstasy) Screen U Benzodiazepines Scrn Urine Cocaine Screen U Cannabinoids Screen Ur Drug Screen Comment Ethyl Alcohol < 3.0 Discharge Plan Triage Chief Complaint: Mental Health ED Provider: Oseas Hurst Dx/Rx/DC Orders Prescriptions: No Action NK RF: 0 Primary Care Provider: Rica Corea
--- NOTE | 2022-02-20 15:36 | CM.ED ---
MABEL Note MABEL called [facility]. They are in shift change and stated to call back later. MABEL faxed referral to [facility]. MABEL called [facility] and spoke to Birgit regarding bed availability. MABEL faxed referral packet to Birgit at [facility]. MABEL called Jojo Flaherty again and confirmed patient is not on any psych medication. Marley SOLIZ
[2022-02-20 15:48] VITALS: RESP 16
--- NOTE | 2022-02-20 15:54 | ED.RN ---
PERMISSION TO TREAT RECEIVED FROM [facility] BY LEILANI SPENCER AND HOWARD SPENCER
--- NOTE | 2022-02-20 15:58 | ED.RN ---
FLORENTIN CLIPPER MACHINE MADE REFERRALS TO [facility] AND [facility]
[2022-02-20 16:19] LABS: Alcohol, Blood (Medical)-Serum < 3.0 mg/dL
[2022-02-20] MEDS: Ondansetron ODT 4 MG Tablet PO (17:17)
--- NOTE | 2022-02-20 17:34 | ED.RN ---
PT HAS TRIED TO CALL MOTHER 6 TIMES. NOT ABLE TO REACH HER.PT BECOMING FRUSTRATED AND STRESSED. PT ASKS THIS RN IF WE COULD HAVE THE SECURITY SPECIALIST GO GET HIS MOTHER AND BRING HER HERE. EXPLAINED TO PT THAT THAT IS NOT POSSIBLE. PT SITTING ON BED ROCKING, HOLDING GENITALS
--- NOTE | 2022-02-20 18:16 | CM.ED ---
MABEL spoke to Birgit at [facility]. Birgit said that patient, per MD, needs to go to [facility]. MABEL called [facility]. No psych beds. They closed unit due to covid. MABEL called [facility] and left voice mail message for [facility] inquiring about psych beds and left contact number. SW called [facility]. No psych beds. MABEL called [facility]. NO psych beds. MABEL called [facility]. No psych beds. [facility] Staff is unsure of bed availability so SW faxed referral to [facility]. MABEL called [facility]. No beds. MABEL called [facility]. No beds SW called [facility]. No beds. MABEL called [facility] and made referral with diagnosis of H/O Schizo and MDD. MABEL faxed referral to [phone]. MABEL called [facility]. MABEL talked to mobile crisis who referred this senior writer to the [facility] ED . However MABEL was on hold and no one picked up for over 3 minutes. Marley SOLIZ
[2022-02-20 18:43] VITALS: BP 141/84; PULSE 110; RESP 18; O2SAT 96
--- NOTE | 2022-02-20 18:43 | ED.RN ---
PT REQUESTING A CATHETER. THIS RN ATTEMPTED TO EXPLAIN TO PT THAT BECAUSE HE HAS THE ABILITY TO GET UP AND TO WALK TO THE BATHROOM, HE WILL NOT BE GETTING A CATHETER. PT VOICES UNDERSTANDING
[2022-02-20 19:00] VITALS: RESP 15
--- NOTE | 2022-02-20 19:02 | CM.ED ---
MABEL Note MABEL called Jojo Flaherty patient's guardian/mom on cell and landline. No answer for landline and no voice mail to leave message. MABEL called [facility] and left message for prescreener inquiring about beds. MABEL called [facility] again inquiring about bed availability. MABEL was advised to call the dye house supervisor at [facility] [phone] MABEL called [facility]. They report they are unable to advise if beds are available. They requested that the assessment be sent to them at [phone] Marley Lorraine SOLIZ
[2022-02-20 20:00] VITALS: RESP 15
--- NOTE | 2022-02-20 20:14 | CM.ED ---
MABEL was involved in 3 phone calls with sharepoint architect but the MD was never available. However, when the MD was contacted (Dr. Kruger) he said that patient needs a provider closer to home. MABEL received call from [facility] with questions regarding patient. MABEL answered questions. MABEL reviewed [place] web site and patient is not a sex offender. MABEL called [facility] and behavioral health staff stated that patient would need to speak to ED protective services social worker at . SW was transferred to ED and it kept ringing. No answer. MABEL unable to leave message. MABEL [facility]isc[facility] and gave hand off to Francisca at Crisis. MABEL faxed referral to [facility] for handoff. MABEL called [facility]. No beds. MABEL called [facility] inpatient. Call could not be completed. MABEL called [facility]. Spoke to Soledad in Behavioral Health. They are not accepting referrals outside the catchment area. MABEL updated Francisca at [facility] that [facility] and [facility] were not accepting patient's or had no bed. MABEL called Celestina at [facility]. Advised that this news writer is going home and Crisis takes over. MABEL gave number for crisis as well as number for ED Charge. Plan: Inpatient psych Marley SOLIZ
--- NOTE | 2022-02-20 21:51 | ED.RN ---
[facility] and [facility] at this time. crisis called and updated at this time
[2022-02-20 23:00] VITALS: RESP 15
[2022-02-21] VITALS: RESP 15
[2022-02-21 01:00] VITALS: RESP 15
[2022-02-21 05:00] VITALS: BP 133/83; PULSE 98; RESP 15; O2SAT 96
[2022-02-21 06:00] VITALS: RESP 15
--- NOTE | 2022-02-21 06:16 | ED.RN ---
please see down time charting from 0200- [id number]
[2022-02-21] MEDS: Ondansetron ODT 4 MG Tablet PO (06:41)
[2022-02-21 07:00] VITALS: RESP 15
--- NOTE | 2022-02-21 08:56 | ED.RN ---
PT CALLED MOTHER . STATES TO THIS RN, MY MOM SAYS I CAN COME HOME. PT MADE AWARE THAT HE CAN TALK TO [employer] WHEN THEY ARRIVE AT 10 AM. PT VOICES UNDERSTANDING
--- NOTE | 2022-02-21 10:24 | CM.ED ---
Social Work Patient request to speak with social worker psychiatric. This social worker psychiatric to patient room. Patient stated I talked to my mom, she is okay with me going home. This social worker psychiatric assessed patient current suicidality. Patient denied suicidal thoughts, plans, intents. This social worker psychiatric communicated need to speak with patient mother prior to establishing plan for patient to return to home. Patient voiced understanding. Telephone call to patient room, Jojo. Jojo confirms to have spoken with patient and to be comfortable with patient returning to home. Jojo stated he just gets upset sometimes. Jojo reported to be with patient all the time when patient is not at work. This social worker psychiatric counseled on lethal means. Jojo denies that there are firearms in the home and patient does not have access to other lethal means. Collaborating with Dr. Cesar and nursing staff. All parties feel comfortable with plan for patient to return to home. This social worker psychiatric back to patient room. This social worker psychiatric completed safety plan with patient and called Jojo. Patient reports desire to live and looks forward to going to work on the daily. Patient with a standing counseling appointment with [facility] on 02/26/2022 @ 9am. Patient and Jojo aware of appointment. Jojo plans to come to ED and pick patient up. PLAN: Discharge to home with mother (guardian), Jojo. Nikunj NDIAYE, NEHEMIAS
[2022-02-21 11:07] VITALS: BP 134/80; PULSE 75; RESP 16; O2SAT 98
--- NOTE | 2022-02-21 11:49 | CM.ED ---
Social Work Patient mother to ED. This social services aide meeting with patient mother and patient in room to go over safety plan. Patient mother signing safety plan and continues to be agreeable to patient returning to the community. Copy of safety plan placed on patient chart and original provided to patient. Telephone call to Stephanie Sorenson. Stephanie updated on patient discharging to the community. PLAN: Discharge to home. Nikunj NDIAYE, NEHEMIAS
== END 2022-02-21 12:18 | disposition home or self-care (01) ==
PROVIDERS: Emergency Provider Student in an Organized Health Care Education/Training Program; PCP Family Medicine; Visit Provider Student in an Organized Health Care Education/Training Program
DX: F32.A Depression, unspecified (principal); G80.8 Other cerebral palsy; R45.851 Suicidal ideations; Z20.822 Contact with and (suspected) exposure to COVID-19
CPT/HCPCS: 36415; 80048; 80307; 82077; 85025; 87811; 93005; 99283

== ENCOUNTER 2022-07-03 23:23 | Emergency (ER) | payer MEDICAID, SELFPAY ==
[2022-07-03 23:24] VITALS: BP 134/87; PULSE 102; RESP 18; TEMP 36.9; O2SAT 96; BMI 35.6
--- NOTE | 2022-07-03 23:29 | EKG12_ITS ---
Test Reason : CHEST PAIN Blood Pressure : / mmHG Vent. Rate : 094 BPM Atrial Rate : 094 BPM P-R Int : 146 ms QRS Dur : 086 ms QT Int : 342 ms P-R-T Axes : 027 -13 007 degrees QTc Int : 427 ms Normal sinus rhythm Normal ECG Confirmed by MIRIAM JACOBS, MELVIN ([id number]), videotape editor VISHAL PEOPLES ([id number]) on 07/05/2022 10:44:42 AM Referred By: ZOILA Confirmed By:MELVIN PINEDA MD
--- NOTE | 2022-07-04 00:08 | RAD_ITS ---
STUDY: X-RAY CHEST REASON FOR EXAM: Male, 31 years old. cp TECHNIQUE: Single AP portable view of the chest. COMPARISON: None. FINDINGS: The lungs are clear and expanded. There is no demonstrated pleural abnormality. Normal size heart. Normal mediastinum and stacy. Normal visualized pulmonary arteries. Normal visualized aortic arch and descending thoracic aorta. Normal visualized thoracic spine. Normal visualized ribs, clavicles, and shoulders. There is no demonstrated abnormality of the visualized soft tissue structures of the upper abdomen. RAD/Chest 1 View (Portable) IMPRESSION: Normal x-ray examination of the chest. Electronically Signed: Neo Muller MD at 2:35 EDT ,
--- NOTE | 2022-07-04 00:21 | EDS_ITS ---
HPI History of Present Illness Chief Complaint: Chest Pain Detail of Chief Complaint: Chest wall pain Informant: patient Onset/Context/Timing Onset: Today Activity at onset: gradual Timing: Continuous Quality: Positive for Aching and Dull Location: Substernal Current Severity: Mild Maximum Severity: Mild Worsened By: Movement of Torso; Not Worsened By Exertion, Movement of Arm, Eating, Palpation, Breathing or Coughing Relieved By: Nothing Associated Symptoms: Negative for Diaphoresis, Dyspnea, Cough, Fever, Lightheadedness or Acid Reflux Narrative Narrative: 31-year-old male history of ADD and cerebral palsy. Tonight had midsternal chest pain he describes it as a stabbing. There is no radiation of the pain. It does not go to his jaw neck, left arm or back. No known cardiac history. No prior DVT or PE. No recent travel, surgery or immobilization. He denies reflux. He denies any fever. Hurts with movement. Denies any leg pain or swelling. No hemoptysis. Prior Similar Symptoms: Yes and No Recent Illness/Hospitalization: No CVD Risk Factors: Negative for Hypertension, Diabetes, Family History 1' </=55 or Smoking PE Risk Factors: Negative for Recent Travel/Surgery, Recent Immobilization, Prior DVT or PE, Cancer or OCP + Smoking + >/=35 TAD Risk Factors: Negative for Marfan's Syndrome or Hypertension [facility] Medical History Abnormal findings on diagnostic imaging of other abdominal regions, including retroperitoneum Abnormal findings on diagnostic imaging of other parts of digestive tract ADD (attention deficit disorder) Attention deficit hyperactivity disorder Depression Hepatosplenomegaly Infantile cerebral palsy Splenomegaly Home Medications NK 02/20/22 [History Last Taken Unknown] Allergy/AdvReac Type Severity Reaction Status Date / Time No Known Allergies Allergy Verified 07/03/22 23:34 Family History Mother Seizures Social History Smoking Status: Never smoker ROS ROS ED ROS Narrative No recent illness. Review of Systems ROS Unobtainable: Denies due to encephalopathy Constitutional Constitutional ED: Denies chills or fever(s) Eyes Eyes: Reports none ENT ENT ED: Denies ear pain Cardiovascular Cardiovascular: Reports as per HPI and chest pain; Denies palpitations or racing heartbeat Respiratory/Chest Respiratory/Chest: Denies cough or dyspnea Gastrointestinal Gastrointestinal: Denies abdominal pain Genitourinary Genitourinary ED: Denies dysuria or hematuria Musculoskeletal Musculoskeletal: Denies arthralgias Integumentary Denies abscess Neurologic Neurologic: Denies headache(s) Psychiatric Psychiatric: Denies anxiety Endocrine Endocrinology: Denies cold intolerance Hematologic/Lymphatic Hematologic/Lymphatic: Denies easy bleeding Allergic/Immunologic Allergic/Immunologic ED: Denies mouth swelling or tongue swelling EXAM Physical Exam Narrative Exam Narrative: Well-appearing 31-year-old male no acute distress vital signs stable afebrile. Pulse ox 96% on room air no signs hypoxia. H EENT exam unremarkable. Neck nontender no JVD. No lymphadenopathy. Lungs with auscultation bilaterally. Heart regular rhythm rate about 95 no murmur. Chest wall reproducibly tender over the sternum consistent with a costochondritis or chest wall discomfort. There is no ecchymosis or bruising. No subcu air or crepitus. No signs of trauma. No redness or warmth. No bony deformities. Abdomen soft nontender normal bowel sounds no peritoneal signs. Moving all 4 extremities. Calves are nontender without edema or cords. Equal symmetrical radial pulses. Back nontender. Neurologic exam awake and alert. Moving all 4 extremities. Const Vital Signs: 07/03/22 23:24 07/03/22 23:59 Temperature 98.5 F Temperature Source Temporal Pulse Rate 102 H Respiratory Rate 18 Respiratory Effort Normal Blood Pressure 134/87 H Blood Pressure Mean 102 Pulse Ox 96 Oxygen Delivery Method Room Air Positive well nourished, well developed and obese; Negative for cachectic, contractures or unkempt General Appearance ED: well developed and NAD; Negative for unkempt, cachectic, contractures or pallor Nutritional Appearance: obese; Negative for cachectic HEENT Reports moist mucous membranes; Denies dry mucous membranes normocephalic and atraumatic; Negative for trauma or tenderness Mouth ED: No dry mucous membranes Mouth: No dry mucous membranes Eyes PERRL and EOMs intact bilaterally General Eye ED: Negative for pale conjunctiva, scleral icterus or other Neck no lymphadenopathy, supple and no JVD General: Negative for tenderness Chest Wall inspection of chest normal; Negative for palpation of chest normal Chest Narrative: Parasternal chest wall tenderness. No redness or warmth. No signs of trauma. No bruising. No subcu air. No bony deformities. Chest: tenderness Resp normal respiratory effort and clear to auscultation bilaterally Effort and Inspection: Negative for respiratory distress Auscultation: Negative for rales, rhonchi, wheezes or diminished lung sounds Cardio regular rate, regular rhythm, S1 normal heart sound, S2 normal heart sound and no murmurs Rate: Negative for bradycardia Rhythm: Negative for abnormal rhythm Peripheral Pulses: pulses 2+ throughout GI normal to inspection, nondistended, normoactive bowel sounds, soft to palpation, non-tender, non-distended and no masses; Negative for hepatosplenomegaly Auscultation: Negative for hyperactive bowel sounds Palpation: Negative for splenomegaly Back/Spine no CVA tenderness and no thoracic nor lumbar tenderness General Back: Negative for CVA tenderness Cervical Spine: Negative for cervical spine tenderness Extremity normal to inspection General Extremety ED: Negative for edema or pulses abnormal General Extremity: Negative for edema or pulses abnormal Neuro oriented x3 Sensorium / Orientation: awake, alert, oriented to person, oriented to place and oriented to time Sensory Exam: No sensory level loss detected Motor Exam: Negative for strength 5/5 throughout Psych mental status grossly normal Appearance: Negative for unkempt Attitude: No agitated Mood & Affect: Negative for depressed, anxious or tearful Skin no rashes or lesions noted and no wounds General Skin Exam: Negative for jaundice or pallor Rashes: No rashes noted Trauma: Negative for abrasion Heart Score History: Slightly/Non-Suspicious ECG: Normal Age: </= 45 years Risk Factors: No Risk Factors Score: 0 MDM MDM MDM Narrative Medical decision making narrative: 31-year-old male no cardiac history has reproducible chest wall pain. When I push on his chest he winces and tells me that the pain he is having. It appears to be obviously musculoskeletal. Patient will be treated with Motrin for pain. Repeat exam patient doing well at 1:08 AM. Will be discharged home for musculoskeletal chest wall pain. Ice to the area. Motrin and Tylenol for pain. Follow-up if not improving. Radiography Chest X-Ray - ED: 1 View, Read by ED Physician, Heart, Lungs, Mediastinum, Bony Structures, No Acute Disease and Chronic Changes Diagnostic Testing: Chest x-ray, portable, single view interpreted by myself shows no acute abnormality. Normal cardiac silhouette. Normal mediastinum. Normal lungs. No infiltrate. No pneumothorax. No bony abnormalities. Rhythm Strip Rhythm Strip: Sinus Rhythm Rate: 94 Ectopy: None EKG Initial EKG: Attestation: I personally reviewed and interpreted this EKG as follows: Interpretation: Sinus Rhythm and No Acute Injury Pattern Comments: Normal sinus rhythm rate of 94. No acute signs of ME or ischemia. Normal EKG. Discharge Plan Triage Chief Complaint: Chest Pain ED Provider: Álvaro Welsh Dx/Rx/DC Orders Prescriptions: No Action NK Primary Care Provider: Rica Corea Referrals: Rica Corea MD [Primary Care Provider] -
[2022-07-04 00:23] VITALS: O2SAT 97
[2022-07-04] MEDS: Ibuprofen 400 MG Tablet 800 MG PO (00:55)
[2022-07-04 01:00] VITALS: RESP 17
[2022-07-04 01:08] VITALS: BP 130/70; PULSE 100; TEMP 36.3
== END 2022-07-04 01:27 | disposition home or self-care (01) ==
PROVIDERS: Emergency Provider Emergency Medicine; PCP Family Medicine; Visit Provider Emergency Medicine
DX: R07.9 Chest pain, unspecified (principal); E66.9 Obesity, unspecified
CPT/HCPCS: 71045; 93005; 99284

== ENCOUNTER 2022-10-14 13:08 | Emergency (ER) | payer MEDICAID, SELFPAY ==
[2022-10-14 13:08] VITALS: BP 140/93; PULSE 108; RESP 18; TEMP 36.1; O2SAT 100; BMI 40.7
--- NOTE | 2022-10-14 13:17 | CT_ITS ---
HISTORY: Left flank pain. TECHNIQUE: Helically acquired images were obtained of the abdomen and pelvis without oral or IV contrast. A radiation dose optimization technique was used for this scan. 514 images. COMPARISON: 05/02/2021. FINDINGS: LOWER CHEST: Lung bases clear. BOWEL: Bowel including appendix nondilated. No focal pericolonic inflammatory change. PERITONEUM: No significant free fluid. LIVER: 20 cm in length. GALLBLADDER/BILIARY TREE: Gallbladder present. SPLEEN: 15.4 cm AP. KIDNEYS AND URETERS: No nephrolithiasis or obstructing ureteral calculus. PANCREAS/ADRENAL GLANDS: Unremarkable. VESSELS: No abdominal aortic aneurysm. PELVIC ORGANS: Small prostate calcifications. ABDOMINAL WALL: Incompletely imaged high riding right testicle. BONES: Intact. CT/Abdomen/Pelvis without Cont IMPRESSION: Negative examination for renal stone. Chronic hepatosplenomegaly. Electronically Signed: Cecelia Ballard MD at 14:05 EST ,
--- NOTE | 2022-10-14 13:18 | EX.ED.DYSGE1 ---
HPI History of Present Illness Chief Complaint: Flank Pain Informant: patient and parent Onset/Context/Timing Onset: Yesterday Context: Gradual Onset Current Severity: Moderate Maximum Severity: Moderate Narrative Narrative: Patient presents secondary to left-sided abdominal pain with nausea and vomiting. Patient states symptoms started last evening. He points to the left flank area and describing his area of pain. He had nausea and vomiting but no diarrhea. He denies urinary symptoms. Mother states he had been told in the past he had an enlarged spleen. He has had no fever or chills. He has not otherwise felt unwell. [facility] Medical History Abnormal findings on diagnostic imaging of other abdominal regions, including retroperitoneum Abnormal findings on diagnostic imaging of other parts of digestive tract Attention deficit hyperactivity disorder Depression Hepatosplenomegaly Infantile cerebral palsy Splenomegaly Home Medications metoclopramide HCl 10 mg tablet (Reglan) 10 mg PO Q6H PRN nausea and vomiting #10 tabs 10/14/22 [Rx Last Taken Unknown] Allergy/AdvReac Type Severity Reaction Status Date / Time No Known Allergies Allergy Verified 07/03/22 23:34 Family History Mother Seizures Social History Smoking Status: Never smoker ROS ROS ED Constitutional Constitutional ED: Denies chills or fever(s) Eyes Eyes: Denies change in vision or discharge from eye(s) ENT ENT ED: Denies discharge from eye(s), rhinorrhea or sore throat Cardiovascular Cardiovascular: Denies chest pain or palpitations Respiratory/Chest Respiratory/Chest: Denies cough or dyspnea Gastrointestinal Gastrointestinal: Reports abdominal pain, nausea and vomiting; Denies diarrhea Genitourinary Genitourinary ED: Denies dysuria Musculoskeletal Musculoskeletal: Denies back pain or extremity pain Integumentary Denies Abrasions or rash Neurologic Neurologic: Denies headache(s) or weakness Psychiatric Psychiatric: Denies anxiety or depression Allergic/Immunologic Allergic/Immunologic ED: Denies lip swelling or urticaria EXAM Physical Exam Const Vital Signs: 10/14/22 13:08 10/14/22 13:14 Temperature 97 F L Temperature Source Temporal Pulse Rate 108 H Respiratory Rate 18 Respiratory Pattern Normal Blood Pressure 140/93 H Blood Pressure Mean 108 Pulse Ox 100 Oxygen Delivery Method Room Air Positive well nourished and well developed General Appearance ED: well developed HEENT Reports normocephalic and head/scalp atraumatic Eyes PERRL and EOMs intact bilaterally Neck supple Chest Wall inspection of chest normal and palpation of chest normal Resp normal respiratory effort and clear to auscultation bilaterally Cardio regular rate and regular rhythm GI GI Narrative: Hypoactive bowel sounds. Tenderness in the left upper quadrant. Left-sided CVA tenderness is also noted. No guarding or rebound. Palpation: soft Back/Spine General Back: CVA tenderness left Extremity normal to inspection Neuro oriented x3 and no sensory deficits noted Sensorium / Orientation: alert Motor Exam: strength 5/5 throughout Psych mental status grossly normal Skin no rashes or lesions noted MDM MDM MDM Narrative Medical decision making narrative: Patient is given morphine, Zofran, Toradol, IV fluids. Lab work obtained to evaluate for leukocytosis, anemia, electrolyte derangement. Urinalysis obtained to evaluate for hematuria or infection. CT flank obtained to evaluate for kidney stone or worsening hepatosplenomegaly. Lab Data Attestation: I reviewed the patient's lab results. Labs: Laboratory Results - last 24 hr 10/14/22 10/14/22 10/14/22 13:27 13:27 13:30 WBC 9.0 RBC 5.50 Hgb 15.8 Hct 47.3 MCV 86.0 MCH 28.7 MCHC 33.4 RDW Std Deviation 39.3 RDW Coeff of Cesar 12.4 Plt Count 385 MPV 9.1 Immature Gran % (Auto) 0.800 Neut % (Auto) 68.0 Lymph % (Auto) 22.4 [place] % (Auto) 7.0 Eos % (Auto) 1.4 Baso % (Auto) 0.4 Absolute Neuts (auto) 6.1 Absolute Lymphs (auto) 2.01 Nucleated RBC % 0 Sodium 142 Potassium 3.8 Chloride 107 Carbon Dioxide 28.0 Anion Gap 7 BUN 16 Creatinine 0.75 Estim Creat Clear Calc 109.20 Est GFR (MDRD) Af Amer 155 Est GFR (MDRD) Non-Af 128 BUN/Creatinine Ratio 21.3 H Glucose 118 H Calcium 9.4 Urine Color Yellow Urine Clarity Clear Urine pH 6.5 Ur Specific [place] 1.010 Urine Protein Negative Urine Glucose (UA) Normal Urine Ketones Negative Urine Occult Blood Negative Urine Nitrite Negative Urine Bilirubin Negative Urine Urobilinogen Normal Ur Leukocyte Esterase Negative Urine RBC 0 SEEN Urine WBC 0 SEEN Ur Squamous Epith Cells 0 SEEN Urine Bacteria 0 SEEN Urine Mucus 0 SEEN Radiography Diagnostic Testing: Clinical Impression(s) from Imaging Studies Abdomen/Pelvis CT 10/14/22 13:17 IMPRESSION: Negative examination for renal stone. Chronic hepatosplenomegaly. Electronically Signed: Cecelia Ballard MD at 14:05 EST , Treatment and Re-Evaluation Narrative: CBC is unremarkable. Chemistry studies are normal. Urinalysis reveals no sign of infection or hematuria. CT flank reveals no evidence of renal stone. He has chronic hepatosplenomegaly. On repeat evaluation patient reports still feeling nauseated. He is given dose of Reglan as I noted on his CT scan his stomach is still full of food products. At this time on reeval he states his nausea is improving. He will be given a prescription for Reglan as he states this helped his nausea better than Zofran. Return instructions are provided. Discharge Plan Triage Chief Complaint: Flank Pain ED Provider: Arlene Zavala Dx/Rx/DC Orders Clinical Impression: Abdominal pain, Vomiting Instructions: ED Flank Pain, Uncertain Cause, ED Vomiting (Adult) Prescriptions: New metoclopramide HCl [Reglan] 10 mg tablet 10 mg PO Q6H PRN (Reason: nausea and vomiting) Qty: 10 0RF Primary Care Provider: Rica Corea Referrals: Rica Corea MD [Primary Care Provider] - 3-5 Days if not improving Disposition Disposition: Home, Self Care
[2022-10-14] MEDS: 0.9% Normal Saline 1,000 ML 150 ML IV (13:26)
[2022-10-14] MEDS: Ketorolac 30 MG/ML Syringe IV (13:27)
[2022-10-14] MEDS: Ondansetron 4 MG/2 ML Vial IV (13:27)
[2022-10-14] MEDS: Morphine 4 MG/ML Syringe IV (13:28)
[2022-10-14 13:31] LABS: Absolute Lymphocyte Count 2.01 X10^3/uL (0.83-4.51); Absolute Neutrophil Count 6.1 X10^3/uL (2.0-7.7); Basophil# 0.04 X10^3/uL; Basophil% 0.4 % (0-1); Eosinophil# 0.13 X10^3/uL; Eosinophils% 1.4 % (0-5); Hematocrit 47.3 % (40-54); Hemoglobin 15.8 g/dL (13.0-16.5); Lymphocyte # 2.01 X10^3/ul (0.83-4.51); Lymphocyte % 22.4 % (19-41); Mean Corp Hgb Conc 33.4 g/dL (32-36); Mean Corpuscular Hgb 28.7 pg (27.0-32.0); Mean Platelet Vol. 9.1 fl (6.2-12.0); Monocyte# 0.63 X10^3/uL; NRBC Flagged by Analyzer 0 % (0-5); Neutrophil # 6.09 X10^3/uL (2.7-7.7); Platelet Count 385 K/mm3 (150-450); RBC Distribution Width CV 12.4 % (11.6-14.6); RBC Distribution Width SD 39.3 fl (35.1-43.9)
[2022-10-14 13:39] LABS: Bacteria 0 SEEN /hpf (None Seen); Color, Urine Yellow (Yellow); Glucose, Dipstick Normal (Normal); Ketone-Dipstick Negative (Negative); Leukocyte Esterase-Dipstick Negative /ul (Negative); Mucous, Urine 0 SEEN /hpf (<or=2+); Nitrite-Dipstick Negative (Negative); Occult Blood-Urine Negative /ul (Negative); Protein-Dipstick Negative (Negative); Red Blood Cells-Urine 0 SEEN /hpf (0-5); Squamous Epithelial Cells - UA 0 SEEN /hpf (0-5); Urine Bilirubin Dipstick Negative (Negative); Urine Clarity Clear (Clear); Urine Urobilinogen Normal (Normal); Urine pH 6.5 (5.0 - 8.0); White Blood Cells 0 SEEN /hpf (0-5)
[2022-10-14 13:45] LABS: Anion Gap 7 (5-15); BUN 16 mg/dL (7-18); BUN/Creat Ratio 21.3 RATIO (10-20); Calcium,Total 9.4 mg/dL (8.5-10.1); Chloride 107 mmol/L (98-107); Creatinine, Serum 0.75 mg/dL (0.70-1.30); EST Glomerular Filtration Rate 128 mL/min (>60); Est Glom Filt Rate - Afr Amer 155 mL/min (>60); Glucose 118 mg/dL (74-106); Potassium 3.8 mmol/L (3.5-5.1); Sodium Level 142 mmol/L (136-145)
[2022-10-14] MEDS: Metoclopramide 10 MG/2 ML Vial 5 MG IV (14:33)
== END 2022-10-14 15:17 | disposition home or self-care (01) ==
PROVIDERS: Emergency Provider Emergency Medicine; PCP Family Medicine; Visit Provider Emergency Medicine
DX: R10.9 Unspecified abdominal pain (principal); R11.2 Nausea with vomiting, unspecified
CPT/HCPCS: 74176; 80048; 81001; 85025; 96361; 96374; 96375; 99283; J7030; A4216; J2405

== ENCOUNTER → 2022-11-06 | Outpatient (CLI) | payer MEDICAID, SELFPAY ==
--- NOTE | 2022-11-06 13:15 | RAD_ITS ---
INDICATION: Abdominal pain EXAMINATION/TECHNIQUE: X-RAY - XR Abdomen W/ Decub and/or Erect Views COMPARISON: 10/14/2022 FINDINGS: BOWEL GAS PATTERN: Non-obstructive. No bowel or stomach distention. FREE AIR: None ORGANOMEGALY: Not seen. CALCIFICATIONS: No abnormal calcifications observed. LOWER CHEST: No acute abnormal finding. RAD/Abd Inc Decub and/or Erect IMPRESSION: No acute abnormal finding the abdomen or pelvis. Electronically Signed: Jean Paul Avitia MD at 19:46 EST ,
== END | disposition home or self-care (01) ==
LOC: MTRAD 12:58
PROVIDERS: PCP Family Medicine; Referring Provider Family Medicine; Visit Provider Family Medicine
DX: R10.84 Generalized abdominal pain (principal)
CPT/HCPCS: 74019

== ENCOUNTER 2023-04-22 08:35 | Emergency (ER) | payer MEDICAID, SELFPAY ==
[2023-04-22 08:36] VITALS: BP 105/61; PULSE 102; RESP 18; TEMP 36.6; O2SAT 97
[2023-04-22 08:41] VITALS: BMI 37.6
--- NOTE | 2023-04-22 08:50 | EDS_ITS ---
HPI HPI - GI History of Present Illness Chief Complaint: Chest Other Informant: patient Narrative Narrative: Patient has chronic upper abdominal pain and chronic hepatosplenomegaly, presents saying that the pain is worse since yesterday and he has been vomiting unknown which started first. Emesis is nonbloody nonbilious. No bright red blood per rectum or melena. No known fevers or chills. No known sick contacts. Lives at home with his mother. Has seen hematology for the hepatosplenomegaly, and is simply being monitored. [facility] Medical History Abnormal findings on diagnostic imaging of other abdominal regions, including retroperitoneum Abnormal findings on diagnostic imaging of other parts of digestive tract Attention deficit hyperactivity disorder Depression Hepatosplenomegaly Infantile cerebral palsy Splenomegaly Home Medications metoclopramide HCl 10 mg tablet (Reglan) 10 mg PO Q6H PRN nausea and vomiting #20 tabs 04/22/23 [Rx Last Taken Unknown] Allergy/AdvReac Type Severity Reaction Status Date / Time No Known Allergies Allergy Verified 04/22/23 08:35 Family History Mother Seizures Social History Smoking Status: Never smoker ROS ROS ED Constitutional Constitutional ED: Denies chills or fever(s) Eyes Eyes: Denies change in vision or diplopia ENT ENT ED: Denies rhinorrhea or sore throat Cardiovascular Cardiovascular: Denies chest pain or palpitations Respiratory/Chest Respiratory/Chest: Denies cough or dyspnea Gastrointestinal Gastrointestinal: Reports abdominal pain, nausea and vomiting; Denies diarrhea Genitourinary Genitourinary ED: Denies dysuria or hematuria Musculoskeletal Musculoskeletal: Denies back pain or neck pain Integumentary Denies abscess or rash Neurologic Neurologic: Denies headache(s), paresthesias or weakness Psychiatric Psychiatric: Denies anxiety or suicidal thoughts EXAM Physical Exam Const Vital Signs: 04/22/23 08:36 04/22/23 08:41 04/22/23 10:13 Temperature 97.8 F Temperature Source Temporal Pulse Rate 102 H 78 Respiratory Rate 18 18 Respiratory Pattern Normal Blood Pressure 105/61 127/79 H Blood Pressure Mean 75 95 Pulse Ox 97 99 Oxygen Delivery Method Room Air Room Air Positive well nourished, well developed and obese General Appearance ED: well developed and NAD Nutritional Appearance: obese HEENT Reports moist mucous membranes normocephalic and atraumatic Eyes PERRL and EOMs intact bilaterally Neck full ROM and supple Resp normal respiratory effort and clear to auscultation bilaterally Cardio regular rate, regular rhythm and no murmurs Rate: Negative for tachycardic GI non-distended GI Narrative: Diffuse subjective abdominal tenderness, worst in the upper abdomen, no guarding or rebound tenderness. Palpating epigastrium makes patient dry heave. Auscultation: normoactive bowel sounds Palpation: soft Back/Spine no CVA tenderness General Back: other FROM Extremity normal to inspection General Extremety ED: Negative for edema, pulses abnormal or tenderness General Extremity: Negative for edema or pulses abnormal Neuro oriented x3, CN's II-XII intact bilaterally and no sensory deficits noted Sensorium / Orientation: awake and alert Motor Exam: strength 5/5 throughout Skin no rashes or lesions noted and no wounds MDM MDM MDM Narrative Medical decision making narrative: Labs were obtained I reviewed them they are unremarkable except for mild prerenal azotemia, and in the meantime he was treated with a liter of IV fluids, Reglan which helped the last time he was here, and followed by GI cocktail and dicyclomine orally. All of this helped all of his symptoms he was able to tolerate oral fluids without difficulty and his repeat exam is benign. I reassured him I do not think that his symptoms today had anything to do with his liver or spleen, and close outpatient follow-up advised if symptoms persist longer than a couple days, viral gastritis in the differential diagnosis as is noninfectious gastritis, I do not think he needs advanced imaging right now which I discussed with mother he is comfortable with that plan as is she, will prescribe him some Reglan to use as needed. Lab Data Attestation: I reviewed the patient's lab results. Labs: Laboratory Results - last 24 hr 04/22/23 09:20 WBC 6.4 RBC 4.78 Hgb 14.0 Hct 40.3 MCV 84.3 MCH 29.3 MCHC 34.7 RDW Std Deviation 39.8 RDW Coeff of Cesar 13.0 Plt Count 237 MPV 9.1 Immature Gran % (Auto) 0.500 Neut % (Auto) 71.7 H Lymph % (Auto) 19.3 [place] % (Auto) 8.3 Eos % (Auto) 0.0 Baso % (Auto) 0.2 Absolute Neuts (auto) 4.6 Absolute Lymphs (auto) 1.23 Nucleated RBC % 0 Sodium 138 Potassium 3.6 Chloride 108 H Carbon Dioxide 21.0 Anion Gap 9 BUN 19 H Creatinine 0.84 Estim Creat Clear Calc 97.50 Est GFR (MDRD) Af Amer 136 Est GFR (MDRD) Non-Af 113 BUN/Creatinine Ratio 22.7 H Glucose 112 H Calcium 8.9 Total Bilirubin 0.80 AST 27 ALT 46 Alkaline Phosphatase 88 Total Protein 7.4 Albumin 3.4 Globulin 4.0 Albumin/Globulin Ratio 0.8 L Lipase 19 Discharge Plan Triage Chief Complaint: Chest Other ED Provider: Sterling Cesar Dx/Rx/DC Orders Clinical Impression: Acute gastritis without hemorrhage Instructions: ED Gastritis (Adult) Prescriptions: Continued metoclopramide HCl [Reglan] 10 mg tablet 10 mg PO Q6H PRN (Reason: nausea and vomiting) Qty: 20 0RF Primary Care Provider: Rica Corea Referrals: Rica Corea MD [Primary Care Provider] - 3-5 Days if not improving Disposition Disposition: Home, Self Care
[2023-04-22] MEDS: Dicyclomine 10 MG Capsule 20 MG PO (08:54)
[2023-04-22] MEDS: Mag Hydrox/Al Hydrox/Simeth 30 ML UDC PO (09:15)
[2023-04-22] MEDS: 0.9% Normal Saline 1,000 ML 1000 ML IV (09:17)
[2023-04-22] MEDS: Metoclopramide 10 MG/2 ML Vial IV (09:20)
[2023-04-22 09:32] LABS: Absolute Lymphocyte Count 1.23 X10^3/uL (0.83-4.51); Absolute Neutrophil Count 4.6 X10^3/uL (2.0-7.7); Basophil# 0.01 X10^3/uL; Basophil% 0.2 % (0-1); Hematocrit 40.3 % (40-54); Lymphocyte # 1.23 X10^3/ul (0.83-4.51); Lymphocyte % 19.3 % (19-41); Mean Corp Hgb Conc 34.7 g/dL (32-36); Mean Corpuscular Hgb 29.3 pg (27.0-32.0); Mean Corpuscular Volume 84.3 fL (80-94); Mean Platelet Vol. 9.1 fl (6.2-12.0); Monocyte# 0.53 X10^3/uL; Monocyte% 8.3 % (0-10); NRBC Flagged by Analyzer 0 % (0-5); Neutrophil # 4.56 X10^3/uL (2.7-7.7); Neutrophil % 71.7 % (47-70); Platelet Count 237 K/mm3 (150-450); RBC Distribution Width SD 39.8 fl (35.1-43.9); Red Blood Count 4.78 M/mm3 (4.6-6.2); White Blood Count 6.4 K/mm3 (4.4-11.0)
[2023-04-22 09:47] LABS: ALB/GLOB Ratio 0.8 RATIO (0.9-2.4); AST(SGOT) 27 U/L (15-37); Alanine Aminotransfer ALT/SGPT 46 U/L (16-61); Albumin, Serum 3.4 g/dL (3.2-5.0); Alkaline Phosphatase 88 U/L (45-117); Anion Gap 9 (5-15); BUN 19 mg/dL (7-18); BUN/Creat Ratio 22.7 RATIO (10-20); Calcium,Total 8.9 mg/dL (8.5-10.1); Chloride 108 mmol/L (98-107); Creatinine, Serum 0.84 mg/dL (0.70-1.30); EST Glomerular Filtration Rate 113 mL/min (>60); Est Glom Filt Rate - Afr Amer 136 mL/min (>60); Glucose 112 mg/dL (74-106); Lipase 19 U/L (13-75); Potassium 3.6 mmol/L (3.5-5.1); Protein, Total 7.4 g/dL (6.4-8.2); Sodium Level 138 mmol/L (136-145)
[2023-04-22 10:13] VITALS: BP 127/79; PULSE 78; RESP 18; O2SAT 99
== END 2023-04-22 10:42 | disposition home or self-care (01) ==
PROVIDERS: Emergency Provider Emergency Medicine; PCP Family Medicine; Visit Provider Emergency Medicine
DX: K29.00 Acute gastritis without bleeding (principal); R16.2 Hepatomegaly with splenomegaly, not elsewhere classified; E66.9 Obesity, unspecified
CPT/HCPCS: 80053; 83690; 85025; 96361; 96374; 99283; J7030; A4216

== ENCOUNTER 2023-04-27 10:14 | Emergency (ER) | payer MEDICAID, SELFPAY ==
[2023-04-27 10:14] VITALS: BP 117/67; PULSE 102; RESP 16; TEMP 36; O2SAT 92; BMI 37.1
--- NOTE | 2023-04-27 10:38 | EX.ED.DYSGE1 ---
HPI <PAVEL Aleman - Last Filed: 04/27/23 14:20> History of Present Illness Chief Complaint: Nausea/Vomiting Narrative Narrative: Patient presenting today with his mother due to nausea and dry heaving that he has had since yesterday. Mom reports that patient has had chronic upper abdominal pain over the past few months, he has seen his PCP for this but has never seen GI. Mom reports that the last time he was here, just a few days ago, he was given a prescription for Reglan which seemed to be helping up until yesterday. Patient denies any vomiting and states that he has just been dry heaving, he denies any hematemesis, melena, hematochezia, diarrhea, and urinary symptoms. He last had a bowel movement last night which was normal for him. He reports that his current abdominal pain is the same pain that he has been having. Patient has a PMH of cerebral palsy and hepatosplenomegaly which he has seen hematology for. PFSH <PAVEL Aleman - Last Filed: 04/27/23 14:20> PFSH Medical History Abnormal findings on diagnostic imaging of other abdominal regions, including retroperitoneum Abnormal findings on diagnostic imaging of other parts of digestive tract Attention deficit hyperactivity disorder Depression Hepatosplenomegaly Infantile cerebral palsy Splenomegaly Home Medications metoclopramide HCl 10 mg tablet (Reglan) 10 mg PO Q6H PRN nausea and vomiting #20 tabs 04/22/23 [Rx Last Taken Unknown] ondansetron 4 mg disintegrating tablet 4 mg PO Q8H PRN PRN Nausea #10 tabs 04/27/23 [Rx Last Taken Unknown] pantoprazole 40 mg tablet,delayed release (Protonix) 40 mg PO DAILY 2 weeks #14 tabs 04/27/23 [Rx Last Taken Unknown] Allergy/AdvReac Type Severity Reaction Status Date / Time No Known Allergies Allergy Verified 04/22/23 08:35 Family History Mother Seizures Social History Smoking Status: Never smoker ROS <PAVEL Aleman - Last Filed: 04/27/23 14:20> ROS ED Constitutional Constitutional ED: Denies chills or fever(s) Cardiovascular Cardiovascular: Denies chest pain Respiratory/Chest Respiratory/Chest: Denies cough, dyspnea, wheezing or other Gastrointestinal Gastrointestinal: Reports abdominal pain and nausea; Denies constipation, diarrhea, melena or vomiting Genitourinary Genitourinary ED: Denies dysuria, hematuria or urinary urgency Musculoskeletal Musculoskeletal: Denies arthralgias, back pain or myalgias Integumentary Denies rash Neurologic Neurologic: Denies weakness EXAM <PAVEL Aleman - Last Filed: 04/27/23 14:20> Physical Exam Const Vital Signs: 04/27/23 10:14 04/27/23 13:38 Temperature 96.8 F L Temperature Source Temporal Pulse Rate 102 H 105 H Respiratory Rate 16 16 Blood Pressure 117/67 159/82 H Blood Pressure Mean 83 107 Pulse Ox 92 95 Oxygen Delivery Method Room Air Positive well nourished, well developed and no apparent distress General Appearance ED: well developed HEENT Reports normocephalic and head/scalp atraumatic Mouth ED: Yes moist mucous membranes normal Eyes PERRL and EOMs intact bilaterally Neck full ROM and supple Chest Wall inspection of chest normal Resp normal respiratory effort and clear to auscultation bilaterally Cardio regular rate and regular rhythm GI soft to palpation, non-distended and no masses GI Narrative: Minimal epigastric tenderness to palpation without any rigidity or guarding. Back/Spine normal ROM and normal to inspection Extremity normal to inspection and full ROM Neuro oriented x3, CN's II-XII intact bilaterally, moves all extremities, no focal motor deficits and no sensory deficits noted Sensorium / Orientation: awake and alert Psych mental status grossly normal and thought process normal Skin no rashes or lesions noted and no wounds <Dr. Gabriel Galvez MD - Last Filed: 04/27/23 14:39> Physical Exam Const Vital Signs: 04/27/23 10:14 04/27/23 13:38 Temperature 96.8 F L Temperature Source Temporal Pulse Rate 102 H 105 H Respiratory Rate 16 16 Blood Pressure 117/67 159/82 H Blood Pressure Mean 83 107 Pulse Ox 92 95 Oxygen Delivery Method Room Air MDM <PAVEL Aleman - Last Filed: 04/27/23 14:20> MDM MDM Narrative Medical decision making narrative: Patient presenting today with upper abdominal pain, nausea, and dry heaving that he has had since yesterday. Mom reports that he has had chronic upper abdominal pain for the past few months and they are not sure what is causing it. He has seen his PCP for this but has not seen GI, I will give them a GI referral. He was given a prescription for Reglan the last time he was here which did seem to help for a few days. He is well-appearing and in no acute distress, vitals are unremarkable. He will be given IV fluids, Reglan and labs will be obtained to rule out leukocytosis, anemia, electrolyte abnormality, hepatobiliary etiology, FAWN, and pancreatitis. Labs overall are unremarkable. Patient's abdomen was relatively benign and I do not feel that a CT is indicated at this time. Patient was given additional Zofran and Protonix. On repeat examination he reports improvement of his symptoms but was given a GI cocktail the last time he was here which seemed to help so this has been given to him as well. He reports improvement of his symptoms after the GI cocktail. We will trial him on Protonix and will also give him a prescription for Zofran. I have given him a referral for Dr. Mancera. He will be discharged home in stable condition and mom and patient are comfortable with plan. Lab Data Attestation: I reviewed the patient's lab results. Lab results narrative: H&H 12.9 and 37 point, AST 46, ALT 77, potassium 3.4 Labs: Laboratory Results - last 24 hr 04/27/23 11:12 WBC 5.5 RBC 4.43 L Hgb 12.9 L Hct 37.9 L MCV 85.6 MCH 29.1 MCHC 34.0 RDW Std Deviation 41.5 RDW Coeff of Cesar 13.2 Plt Count 240 MPV 9.4 Immature Gran % (Auto) 0.500 Neut % (Auto) 76.2 H Lymph % (Auto) 16.1 L Ashley % (Auto) 7.0 Eos % (Auto) 0.0 Baso % (Auto) 0.2 Absolute Neuts (auto) 4.2 Absolute Lymphs (auto) 0.88 Nucleated RBC % 0 Sodium 139 Potassium 3.4 L Chloride 107 Carbon Dioxide 24.0 Anion Gap 8 BUN 10 Creatinine 0.77 Estim Creat Clear Calc 106.36 Est GFR (MDRD) Af Amer 150 Est GFR (MDRD) Non-Af 124 BUN/Creatinine Ratio 13.0 Glucose 101 Calcium 8.8 Total Bilirubin 0.50 AST 46 H ALT 77 H Alkaline Phosphatase 93 Total Protein 7.2 Albumin 3.3 Globulin 3.9 Albumin/Globulin Ratio 0.8 L Lipase 28 <Dr. Gabriel Galvez MD - Last Filed: 04/27/23 14:39> [facility] Lab Data Labs: Laboratory Results - last 24 hr 04/27/23 11:12 WBC 5.5 RBC 4.43 L Hgb 12.9 L Hct 37.9 L MCV 85.6 MCH 29.1 MCHC 34.0 RDW Std Deviation 41.5 RDW Coeff of Cesar 13.2 Plt Count 240 MPV 9.4 Immature Gran % (Auto) 0.500 Neut % (Auto) 76.2 H Lymph % (Auto) 16.1 L Ashley % (Auto) 7.0 Eos % (Auto) 0.0 Baso % (Auto) 0.2 Absolute Neuts (auto) 4.2 Absolute Lymphs (auto) 0.88 Nucleated RBC % 0 Sodium 139 Potassium 3.4 L Chloride 107 Carbon Dioxide 24.0 Anion Gap 8 BUN 10 Creatinine 0.77 Estim Creat Clear Calc 106.36 Est GFR (MDRD) Af Amer 150 Est GFR (MDRD) Non-Af 124 BUN/Creatinine Ratio 13.0 Glucose 101 Calcium 8.8 Total Bilirubin 0.50 AST 46 H ALT 77 H Alkaline Phosphatase 93 Total Protein 7.2 Albumin 3.3 Globulin 3.9 Albumin/Globulin Ratio 0.8 L Lipase 28 Treatment and Re-Evaluation :: I have personally performed a face to face assessment of the patient and have reviewed the REGINE Note. I performed a substantive portion of the visit including all aspects of the following. My thakkar findings include: History: Patient has some epigastric area pain. He presents with nausea and vomiting. He has been having this for 3 months or maybe even longer. But it comes in episodes. He has had this episode going on for probably for 5 days. He was here about 3 to 4 days ago. He was given Reglan. His mom states that it did help a lot but today he threw it up. No blood in the vomitus or stool. No fevers. No back pain. No prior abdominal surgeries. He saw his primary doctor for this but has not seen gastroenterology. The only thing they have for nausea is Pepto-Bismol. They have never tried any meds for acid production. Exam: Patient awake alert. No acute distress. Mildly dry mucous membranes. Lungs are clear. Heart is regular. Rate about 90. Abdomen soft normal bowel sounds and nondistended. I am really not getting any notable tenderness anywhere. There is certainly no rebound or guarding. No mass. Overall relatively benign exam. Medical Decision Making: Patient will be given meds and IV fluids. We will check labs. Depending on results of labs and the patient's condition we may look further. His last CAT scan was back in October of this year. I did review those results on the computer. Patient did get better. He really has primarily upper/epigastric area pain. I will give him Zofran for the nausea. We will write for Protonix. Recommend follow-up and we did discuss reasons to return. Discharge Plan Triage Chief Complaint: Nausea/Vomiting ED Midlevel Provider: Della Hutton ED Provider: Gabriel Galvez Dx/Rx/DC Orders Clinical Impression: Nausea Instructions: ED Vomiting (Adult) Prescriptions: New pantoprazole [Protonix] 40 mg tablet,delayed release (DR/EC) 40 mg PO DAILY 14 Days Qty: 14 0RF ondansetron 4 mg tablet,disintegrating 4 mg PO Q8H PRN PRN (Reason: Nausea) Qty: 10 0RF No Action metoclopramide HCl [Reglan] 10 mg tablet 10 mg PO Q6H PRN (Reason: nausea and vomiting) Qty: 20 0RF Primary Care Provider: Rica Corea Referrals: Rica Corea MD [Primary Care Provider] - 5-7 Days Satnam Mancera DO [Med Staff - Active Staff] - 1 Week Activity Restrictions/Additional Instructions: Please follow-up with the fire extinguisher tester, return for any worsening of your symptoms. Disposition Disposition: Home, Self Care
[2023-04-27] MEDS: Metoclopramide 10 MG/2 ML Vial 5 MG IV (11:09)
[2023-04-27] MEDS: 0.9% Normal Saline 1,000 ML 999 ML IV (11:09)
[2023-04-27 11:16] LABS: Absolute Lymphocyte Count 0.88 X10^3/uL (0.83-4.51); Absolute Neutrophil Count 4.2 X10^3/uL (2.0-7.7); Basophil# 0.01 X10^3/uL; Basophil% 0.2 % (0-1); Hematocrit 37.9 % (40-54); Hemoglobin 12.9 g/dL (13.0-16.5); Lymphocyte # 0.88 X10^3/ul (0.83-4.51); Lymphocyte % 16.1 % (19-41); Mean Corpuscular Hgb 29.1 pg (27.0-32.0); Mean Corpuscular Volume 85.6 fL (80-94); Mean Platelet Vol. 9.4 fl (6.2-12.0); Monocyte# 0.38 X10^3/uL; NRBC Flagged by Analyzer 0 % (0-5); Neutrophil # 4.16 X10^3/uL (2.7-7.7); Neutrophil % 76.2 % (47-70); Platelet Count 240 K/mm3 (150-450); RBC Distribution Width CV 13.2 % (11.6-14.6); RBC Distribution Width SD 41.5 fl (35.1-43.9); Red Blood Count 4.43 M/mm3 (4.6-6.2); White Blood Count 5.5 K/mm3 (4.4-11.0)
[2023-04-27 11:35] LABS: ALB/GLOB Ratio 0.8 RATIO (0.9-2.4); AST(SGOT) 46 U/L (15-37); Alanine Aminotransfer ALT/SGPT 77 U/L (16-61); Albumin, Serum 3.3 g/dL (3.2-5.0); Alkaline Phosphatase 93 U/L (45-117); Anion Gap 8 (5-15); BUN 10 mg/dL (7-18); Calcium,Total 8.8 mg/dL (8.5-10.1); Chloride 107 mmol/L (98-107); Creatinine, Serum 0.77 mg/dL (0.70-1.30); EST Glomerular Filtration Rate 124 mL/min (>60); Est Glom Filt Rate - Afr Amer 150 mL/min (>60); Estimated Creatinine Clearance 106.36 ml/min; Globulin 3.9 g/dL (2.2-4.2); Glucose 101 mg/dL (74-106); Lipase 28 U/L (13-75); Potassium 3.4 mmol/L (3.5-5.1); Protein, Total 7.2 g/dL (6.4-8.2); Sodium Level 139 mmol/L (136-145)
[2023-04-27] MEDS: Ondansetron 4 MG/2 ML Vial IV (12:16)
[2023-04-27] MEDS: Mag Hydrox/Al Hydrox/Simeth 30 ML UDC PO (13:35)
[2023-04-27 13:38] VITALS: BP 159/82; PULSE 105; RESP 16; O2SAT 95
== END 2023-04-27 15:00 | disposition home or self-care (01) ==
PROVIDERS: Physician Assistant; Emergency Provider Emergency Medicine; PCP Family Medicine; Visit Provider Emergency Medicine
DX: R11.2 Nausea with vomiting, unspecified (principal); R10.10 Upper abdominal pain, unspecified; G89.29 Other chronic pain
CPT/HCPCS: 80053; 83690; 85025; 96361; 96365; 96375; 99285; J2405; J3490

== ENCOUNTER 2023-05-05 19:35 | Emergency (ER) | payer MEDICAID, SELFPAY ==
[2023-05-05 19:36] VITALS: BP 109/71; PULSE 94; RESP 16; TEMP 35.9; O2SAT 99; BMI 33.6
--- NOTE | 2023-05-05 20:02 | EDS_ITS ---
HPI History of Present Illness Chief Complaint: Nausea/Vomiting Detail of Chief Complaint: Nausea vomiting after eating for greater than a month Informant: patient and parent Onset/Context/Timing Onset: Month(s) Context: Sudden Onset Timing: Intermittent Quality: After eating Location: GI Current Severity: Gone Maximum Severity: Moderate Worsened by: Eating per mom Relieved by: Nothing Associated Symptoms Associated Symptoms: Reported 20 pound weight loss Narrative Narrative: PersonPatient is a 32-year-old with MRDD and hepatosplenomegaly who has had GI work-up which included CT of the abdomen in 2020 2021 as well as this year. He had a PET scan to evaluate hepatosplenomegaly. [facility] Medical History Abnormal findings on diagnostic imaging of other abdominal regions, including re troperitoneum Abnormal findings on diagnostic imaging of other parts of digestive tract Attention deficit hyperactivity disorder Depression Hepatosplenomegaly Infantile cerebral palsy Splenomegaly Home Medications metoclopramide HCl 10 mg tablet (Reglan) 10 mg PO Q6H PRN nausea and vomiting #20 tabs 04/22/23 [Rx Last Taken Unknown] ondansetron 4 mg disintegrating tablet 4 mg PO Q8H PRN PRN Nausea #10 tabs 04/27/23 [Rx Last Taken Unknown] pantoprazole 40 mg tablet,delayed release (Protonix) 40 mg PO DAILY 2 weeks #14 tabs 04/27/23 [Rx Last Taken Unknown] Allergy/AdvReac Type Severity Reaction Status Date / Time No Known Allergies Allergy Verified 05/05/23 19:36 Family History Mother Seizures Social History Smoking Status: Never smoker ROS ROS ED Review of Systems ROS Unobtainable: due to mental status and other Constitutional Constitutional ED: Reports weight loss Gastrointestinal Gastrointestinal: Reports abdominal pain, nausea and vomiting EXAM Physical Exam Const Vital Signs: 05/05/23 19:36 05/05/23 21:45 Temperature 96.7 F L Temperature Source Temporal Pulse Rate 94 81 Respiratory Rate 16 18 Blood Pressure 109/71 125/77 H Blood Pressure Mean 83 93 Pulse Ox 99 94 Oxygen Delivery Method Room Air Positive well nourished, well developed, obese and unkempt General Appearance ED: unkempt, well developed and NAD; Negative for cyanotic, diaphoretic or pallor Nutritional Appearance: obese HEENT Reports moist mucous membranes HEENT Narrative: Head is normocephalic and atraumatic. Ears are normal. Nares are patent. Posterior pharynx is normal. Eyes PERRL and EOMs intact bilaterally General Eye ED: Negative for pale conjunctiva or scleral icterus Neck no lymphadenopathy, supple and no JVD Chest Wall inspection of chest normal and palpation of chest normal Resp normal respiratory effort and clear to auscultation bilaterally Cardio regular rate, regular rhythm, S1 normal heart sound, S2 normal heart sound and no murmurs GI normal to inspection, nondistended, normoactive bowel sounds, non-tender, non- distended and no masses; Negative for hepatosplenomegaly GI Narrative: Difficult to assess for any mass or heart paraspinal megaly due to body habitus. Auscultation: normoactive bowel sounds Palpation: soft Back/Spine no CVA tenderness Thoracic Spine / Upper Back: Negative for thoracic spinal tenderness Lumbar Spine / Lower Back: Negative for lumbar spinal tenderness Extremity normal to inspection General Extremety ED: Negative for edema or tenderness General Extremity: Negative for edema Neuro CN's II-XII intact bilaterally and no sensory deficits noted Sensorium / Orientation: alert Motor Exam: strength 5/5 throughout Psych mental status grossly normal Appearance: unkempt Skin no rashes or lesions noted, no wounds and skin turgor normal General Skin Exam: Negative for jaundice or pallor MDM MDM MDM Narrative Medical decision making narrative: Clinically patient does not appear dehydrated. Clinically does not appear to have lost weight since his pants are tight on him. Prior records for ER visit, prior laboratory studies and prior outpatient test were all reviewed and the only abnormal finding is hepatosplenomegaly. Lab Data Attestation: I reviewed the patient's lab results. Lab results narrative: CBC is normal. Comprehensive metabolic panel reveals elevated AST ALT and alkaline phosphatase. These are higher than prior tests. Urine reveals for gravity 1.020. Positive for protein urea, occult blood and negative for nitrites. Leukoesterase is positive. Urine is positive for bilirubin urobilinogen however total bili on the liver profile is normal. There is no pyuria with 2+ bacteria. Will obtain urine culture. Labs: Laboratory Results - last 24 hr 05/05/23 05/05/23 20:14 21:07 WBC 6.2 RBC 4.68 Hgb 13.4 Hct 40.4 MCV 86.3 MCH 28.6 MCHC 33.2 RDW Std Deviation 42.1 RDW Coeff of Cesar 13.3 Plt Count 377 MPV 8.8 Immature Gran % (Auto) 1.000 H Neut % (Auto) 64.9 Lymph % (Auto) 26.2 [place] % (Auto) 7.2 Eos % (Auto) 0.5 Baso % (Auto) 0.2 Absolute Neuts (auto) 4.0 Absolute Lymphs (auto) 1.63 Nucleated RBC % 0 Sodium 138 Potassium 4.1 Chloride 108 H Carbon Dioxide 24.0 Anion Gap 6 BUN 14 Creatinine 0.91 Estim Creat Clear Calc 97.58 Est GFR (MDRD) Af Amer 124 Est GFR (MDRD) Non-Af 102 BUN/Creatinine Ratio 15.4 Glucose 99 Calcium 9.0 Total Bilirubin 0.60 Direct Bilirubin 0.15 AST 90 H ALT 187 H Alkaline Phosphatase 119 H Total Protein 7.2 Albumin 3.2 Globulin 4.0 Albumin/Globulin Ratio 0.8 L Lipase 48 Urine Color Yellow Urine Clarity Clear Urine pH 6.0 Ur Specific English 1.020 Urine Protein 30 H Urine Glucose (UA) Normal Urine Ketones 50 H Urine Occult Blood 25 H Urine Nitrite Negative Urine Bilirubin 1 H Urine Urobilinogen 4 H Ur Leukocyte Esterase 25 H Urine RBC 0 SEEN Urine WBC 0-5 SEEN Ur Squamous Epith Cells 0 SEEN Urine Bacteria 2+ Urine Mucus 1+ Treatment and Re-Evaluation :: Mother was told that he has slight elevation of his liver enzymes compared to prior. Recommend contacting the primary care physician and contact Dr. Leonel eng's office for sooner office visit and scope Discharge Plan Triage Chief Complaint: Nausea/Vomiting ED Provider: [place] Dx/Rx/DC Orders Clinical Impression: Abdominal pain, Cerebral palsy, Hepatosplenomegaly, Nausea & vomiting, Ketosis, Cognitive impairment, Elevated liver enzymes Instructions: ED Abdominal Pain Unkn Cause Male... Prescriptions: No Action pantoprazole [Protonix] 40 mg tablet,delayed release (DR/EC) 40 mg PO DAILY 14 Days Qty: 14 0RF ondansetron 4 mg tablet,disintegrating 4 mg PO Q8H PRN PRN (Reason: Nausea) Qty: 10 0RF metoclopramide HCl [Reglan] 10 mg tablet 10 mg PO Q6H PRN (Reason: nausea and vomiting) Qty: 20 0RF Primary Care Provider: Rica Corea Referrals: Rica Corea MD [Primary Care Provider] - 5-7 Days Jarde Holcomb MD [Non-Staff] - Keep [facility] appointment Disposition Disposition: Home, Self Care
[2023-05-05 20:22] LABS: Absolute Lymphocyte Count 1.63 X10^3/uL (0.83-4.51); Basophil# 0.01 X10^3/uL; Basophil% 0.2 % (0-1); Eosinophil# 0.03 X10^3/uL; Eosinophils% 0.5 % (0-5); Hematocrit 40.4 % (40-54); Hemoglobin 13.4 g/dL (13.0-16.5); Lymphocyte # 1.63 X10^3/ul (0.83-4.51); Lymphocyte % 26.2 % (19-41); Mean Corp Hgb Conc 33.2 g/dL (32-36); Mean Corpuscular Hgb 28.6 pg (27.0-32.0); Mean Corpuscular Volume 86.3 fL (80-94); Mean Platelet Vol. 8.8 fl (6.2-12.0); Monocyte# 0.45 X10^3/uL; Monocyte% 7.2 % (0-10); NRBC Flagged by Analyzer 0 % (0-5); Neutrophil # 4.04 X10^3/uL (2.7-7.7); Neutrophil % 64.9 % (47-70); Platelet Count 377 K/mm3 (150-450); RBC Distribution Width CV 13.3 % (11.6-14.6); RBC Distribution Width SD 42.1 fl (35.1-43.9); Red Blood Count 4.68 M/mm3 (4.6-6.2); White Blood Count 6.2 K/mm3 (4.4-11.0)
[2023-05-05 20:45] LABS: ALB/GLOB Ratio 0.8 RATIO (0.9-2.4); AST(SGOT) 90 U/L (15-37); Alanine Aminotransfer ALT/SGPT 187 U/L (16-61); Albumin, Serum 3.2 g/dL (3.2-5.0); Alkaline Phosphatase 119 U/L (45-117); Anion Gap 6 (5-15); BUN 14 mg/dL (7-18); BUN/Creat Ratio 15.4 RATIO (10-20); Bilirubin, Direct 0.15 mg/dL (0.00-0.30); Chloride 108 mmol/L (98-107); Creatinine, Serum 0.91 mg/dL (0.70-1.30); EST Glomerular Filtration Rate 102 mL/min (>60); Est Glom Filt Rate - Afr Amer 124 mL/min (>60); Estimated Creatinine Clearance 97.58 ml/min; Glucose 99 mg/dL (74-106); Lipase 48 U/L (13-75); Potassium 4.1 mmol/L (3.5-5.1); Protein, Total 7.2 g/dL (6.4-8.2); Sodium Level 138 mmol/L (136-145)
[2023-05-05 21:11] LABS: Red Blood Cells-Urine 0 SEEN /hpf (0-5); Squamous Epithelial Cells - UA 0 SEEN /hpf (0-5)
[2023-05-05 21:21] LABS: Color, Urine Yellow (Yellow); Glucose, Dipstick Normal (Normal); Ketone-Dipstick 50 mg/dl (Negative); Leukocyte Esterase-Dipstick 25 /ul (Negative); Nitrite-Dipstick Negative (Negative); Occult Blood-Urine 25 /ul (Negative); Protein-Dipstick 30 mg/dl (Negative); Urine Clarity Clear (Clear); Urine Urobilinogen 4 mg/dl (Normal)
[2023-05-05 21:41] LABS: Urine Bilirubin Dipstick 1 mg/dL (Negative)
[2023-05-05 21:45] VITALS: BP 125/77; PULSE 81; RESP 18; O2SAT 94
[2023-05-05 21:46] LABS: Bacteria 2+ /hpf (None Seen); Mucous, Urine 1+ /hpf (<or=2+); White Blood Cells 0-5 SEEN /hpf (0-5)
[2023-05-05 23:12] VITALS: BP 107/60; PULSE 72; RESP 18; O2SAT 98
[2023-05-05 23:29] VITALS: BP 107/60; PULSE 72; RESP 18; O2SAT 98
== END 2023-05-05 23:20 | disposition home or self-care (01) ==
PROVIDERS: Emergency Provider Emergency Medicine; PCP Family Medicine; Visit Provider Emergency Medicine
DX: R10.9 Unspecified abdominal pain (principal); G80.9 Cerebral palsy, unspecified; E88.89 Other specified metabolic disorders; R11.2 Nausea with vomiting, unspecified; R41.89 Other symptoms and signs involving cognitive functions and awareness; R16.2 Hepatomegaly with splenomegaly, not elsewhere classified; R74.8 Abnormal levels of other serum enzymes
CPT/HCPCS: 80053; 81001; 82248; 83690; 85025; 87086; 87088; 99283; A4216

== ENCOUNTER 2023-05-11 08:10 | Emergency (ER) | payer MEDICARE, MEDICAID, SELFPAY ==
[2023-05-11 08:13] VITALS: BP 138/74; PULSE 71; RESP 15; TEMP 36.3; O2SAT 98; BMI 34.3
--- NOTE | 2023-05-11 08:35 | EX.ED.DYSGE1 ---
HPI History of Present Illness Chief Complaint: Other, Pain/Inj Narrative Narrative: History and physical is limited secondary to cognitive impairment that is chronic. 32-year-old male brought in by his mother because of nausea and vomiting after eating. They state that he has been here throughout the last month few times and been worked up for nausea and vomiting after eating. He was placed on the medication that begins with a P. It was helping him until he ran out yesterday. He is coughing and gagging again which started last night. No fevers or chills. She states that he has vomited a little after eating. They have an appointment with Dr. Holcomb with gastroenterology at the end of June. They present mainly for medication refill. [facility] Medical History Abnormal findings on diagnostic imaging of other abdominal regions, including retroperitoneum Abnormal findings on diagnostic imaging of other parts of digestive tract Attention deficit hyperactivity disorder Depression Hepatosplenomegaly Infantile cerebral palsy Splenomegaly Home Medications metoclopramide HCl 10 mg tablet (Reglan) 10 mg PO Q6H PRN nausea and vomiting #20 tabs 04/22/23 [Rx Last Taken Unknown] ondansetron 4 mg disintegrating tablet 4 mg PO Q8H PRN PRN Nausea #10 tabs 04/27/23 [Rx Last Taken Unknown] pantoprazole 40 mg tablet,delayed release (Protonix) 40 mg PO DAILY 2 weeks #14 tabs 04/27/23 [Rx Last Taken Unknown] ondansetron 4 mg disintegrating tablet 4 mg PO Q6H PRN nausea and vomiting #20 tabs 05/11/23 [Rx Last Taken Unknown] pantoprazole 40 mg tablet,delayed release (Protonix) 40 mg PO DAILY #30 tabs 05/11/23 [Rx Last Taken Unknown] Allergy/AdvReac Type Severity Reaction Status Date / Time No Known Allergies Allergy Verified 05/06/23 08:42 Family History Mother Seizures Social History Smoking Status: Never smoker ROS ROS ED ROS Narrative Provided by mother secondary to cognitive impairment/cerebral palsy. Constitutional: No fever, no chills. HEENT: No sore throat. No neck pain. No loss of vision. No rhinorrhea. Cardiovascular: No chest pain. No palpitations. No pedal edema. Respiratory: Occasional nonproductive cough, no shortness of breath. Abdominal: No abdominal pain. Positive nausea and vomiting after eating on occasion. Genitourinary: No dysuria. No hematuria. Musculoskeletal: No myalgias. No arthralgias. Neurologic: No headaches. No dizziness. No lightheadedness. Skin: No rash. No change in color. Psychiatric: No depression. No anxiety. EXAM Physical Exam Narrative Exam Narrative: Afebrile. Vital signs noted. HEENT: Normocephalic. Atraumatic. PERRL, EOMI. Neck soft and supple. No point tenderness or step off. Cardiovascular: Regular rate and rhythm. No murmurs, rubs, or gallops appreciated. Respiratory: No tachypnea. Lungs clear to auscultation bilaterally. Gastrointestinal: Abdomen soft, nontender, with normoactive bowel sounds. No rebound or guarding. Neurological: Awake. Alert. Nonfocal, nonlateralizing. Consistent with cerebral palsy. Skin: No rash. Normal color. No pallor. Musculoskeletal: No pedal edema. Full range of motion extremities. Const Vital Signs: 05/11/23 08:12 05/11/23 08:13 Temperature 97.4 F L Temperature Source Temporal Pulse Rate 71 Respiratory Rate 15 Respiratory Effort Normal Non-Labored Respiratory Pattern Normal Blood Pressure 138/74 H Blood Pressure Mean 95 Pulse Ox 98 Oxygen Delivery Method Room Air MDM MDM MDM Narrative Medical decision making narrative: I reviewed the patient's prior records. He was here a few weeks ago and throughout the month of April. He has had CT scans that did show hepatomegaly, but no acute process. His symptoms sound more like GERD and gastritis. He was prescribed Protonix and is out. I will write him a prescription for 30 tablets, along with a refill of his Zofran to take as needed. I do not feel he requires imaging or laboratory work as and is supposed to follow-up with gastroenterology. I do feel that he can get further refills from his primary care provider. He was given a dose of Protonix here in the emergency department and a prescription written for them to fruit picker later today. I feel he can be discharged safely home and does not require observation. Return instructions to the emergency department were reviewed. Disposition is discharged home in stable condition. History & Record Review Discussion w/independent historian: Family Additional record(s) reviewed:: Prior ED visit and Prior labs Discharge Plan Triage Chief Complaint: Other, Pain/Inj ED Provider: Jurgen Trujillo Dx/Rx/DC Orders Clinical Impression: Medication refill, Cognitive impairment, Gastroesophageal reflux disease, Nausea & vomiting Instructions: ED GERD (Adult), ED Vomiting (Adult) Prescriptions: New pantoprazole [Protonix] 40 mg tablet,delayed release (DR/EC) 40 mg PO DAILY Qty: 30 0RF ondansetron 4 mg tablet,disintegrating 4 mg PO Q6H PRN (Reason: nausea and vomiting) Qty: 20 0RF No Action pantoprazole [Protonix] 40 mg tablet,delayed release (DR/EC) 40 mg PO DAILY 14 Days Qty: 14 0RF ondansetron 4 mg tablet,disintegrating 4 mg PO Q8H PRN PRN (Reason: Nausea) Qty: 10 0RF metoclopramide HCl [Reglan] 10 mg tablet 10 mg PO Q6H PRN (Reason: nausea and vomiting) Qty: 20 0RF Primary Care Provider: Rica Corea Referrals: Rica Corea MD [Primary Care Provider] - 3-5 Days Activity Restrictions/Additional Instructions: Keep your appointment with gastroenterology. Disposition Disposition: Home, Self Care
[2023-05-11] MEDS: Pantoprazole Sodium 40 MG Tablet PO (08:43)
== END 2023-05-11 08:43 | disposition home or self-care (01) ==
LOC: ED 08:35
PROVIDERS: Emergency Provider Emergency Medicine; PCP Family Medicine; Visit Provider Emergency Medicine
DX: Z76.0 Encounter for issue of repeat prescription (principal); R41.89 Other symptoms and signs involving cognitive functions and awareness; K21.9 Gastro-esophageal reflux disease without esophagitis; R11.2 Nausea with vomiting, unspecified
CPT/HCPCS: 99283

== ENCOUNTER → 2023-05-21 | Outpatient (CLI) | payer MEDICARE, MEDICAID, SELFPAY ==
--- NOTE | 2023-05-21 08:42 | RAD_ITS ---
STUDY: X-RAY - ESOPHAGUS (BARIUM SWALLOW) WITH FLUOROSCOPY REASON FOR EXAM: Male, 32 years old. DYSPHAGIA 12MM TABLET TECHNIQUE: 32 view(s) of the esophagus were obtained following swallowing of barium. FLUOROSCOPY TIME (if supplied): (30 seconds) minutes/seconds. 14.22 mGy COMPARISON: None. FINDINGS: There is no demonstrated esophageal foreign body. There is no demonstrated stricture or mucosal abnormality. Normal gastroesophageal junction, without a demonstrated hiatal hernia. The patient ingested a 12 mm tablet of barium without any difficulty. Normal visualized aortic arch and descending thoracic aorta. Normal visualized pulmonary parenchyma. Normal visualized osseous structures of the thorax. RAD/Esophagus Dual Contrast IMPRESSION: Normal plain film x-ray examination (barium swallow) of the esophagus. Electronically Signed: Wil Motley MD at 15:02 EDT ,
== END | disposition home or self-care (01) ==
LOC: RAD 08:41
PROVIDERS: PCP Family Medicine; Referring Provider Internal Medicine Gastroenterology; Visit Provider Internal Medicine Gastroenterology
DX: R13.10 Dysphagia, unspecified (principal)
CPT/HCPCS: 74221

== ENCOUNTER 2023-05-23 12:02 | Observation (INO) | payer MEDICARE, MEDICAID, SELFPAY ==
[2023-05-23 12:02] VITALS: BP 101/46; PULSE 92; RESP 20; TEMP 35.6; O2SAT 99; BMI 30.7
--- NOTE | 2023-05-23 12:15 | EX.ED.GENINJ ---
HPI History of Present Illness Chief Complaint: Abd Pain Narrative Narrative: Patient presents with chronic recurrent nausea vomiting and epigastric pain. Mom is worried about dehydration. He has had these in the past he is due to have a endoscopy per GI. No fevers or chills. He patient is still doing his ADLs but sometimes he feels lightheaded and sometimes he feels a little more weak. No fevers or chills PFSH PFSH Medical History Abnormal findings on diagnostic imaging of other abdominal regions, including retroperitoneum Abnormal findings on diagnostic imaging of other parts of digestive tract Attention deficit hyperactivity disorder Depression Hepatosplenomegaly Infantile cerebral palsy Splenomegaly Home Medications metoclopramide HCl 10 mg tablet (Reglan) 10 mg PO Q6H PRN nausea and vomiting #20 tabs 04/22/23 [Rx Last Taken Unknown] ondansetron 4 mg disintegrating tablet 4 mg PO Q8H PRN PRN Nausea #10 tabs 04/27/23 [Rx Last Taken Unknown] pantoprazole 40 mg tablet,delayed release (Protonix) 40 mg PO DAILY 2 weeks #14 tabs 04/27/23 [Rx Last Taken Unknown] ondansetron 4 mg disintegrating tablet 4 mg PO Q6H PRN nausea and vomiting #20 tabs 05/11/23 [Rx Last Taken Unknown] pantoprazole 40 mg tablet,delayed release (Protonix) 40 mg PO DAILY #30 tabs 05/11/23 [Rx Last Taken Unknown] Allergy/AdvReac Type Severity Reaction Status Date / Time No Known Allergies Allergy Verified 05/06/23 08:42 Family History Mother Seizures Social History Smoking Status: Never smoker ROS ROS ED ROS Narrative Past medical history: cerebral palsy Medications: Reviewed Social history: Noncontributory Review of systems: All systems negative except as indicated General: No fever Eyes: No visual changes ENT: No upper airway congestion, normal voice Neck: No neck pain Cardiovascular: No chest pain Respiratory: No shortness of breath or cough Gastrointestinal: As in HPI Genitourinary: No dysuria Musculoskeletal: Denies myalgias no difficulty with ambulation Skin: No rash Neurological: No memory loss, confusion or any focal weakness EXAM Physical Exam Narrative Exam Narrative: Physical exam General: Well nourished, Well developed, No Acute Distress Head: Normocephalic, Atraumatic Eyes: Conjunctiva not pale ENT: Dry mucous membranes Neck: Supple, Nontender, No lymphadenopathy Cardiovascular: Regular rate, Regular rhythm Respiratory: No distress, CTA bilaterally Abdomen: Soft, slight epigastric pain. No guarding or rebound. There is no right upper quadrant pain. Negative Tovar's. Back: Nontender, Normal Inspection. 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 No acute focal deficit Psychological: Normal affect Const Vital Signs: 05/23/23 12:02 Temperature 96.0 F L Temperature Source Temporal Pulse Rate 92 Respiratory Rate 20 H Blood Pressure 101/46 L Blood Pressure Mean 64 Pulse Ox 99 Oxygen Delivery Method Room Air MDM MDM MDM Narrative Medical decision making narrative: Is unremarkable. He is given fluids, antacids and he improved. He likely has gastritis, he needs to follow-up with GI. He continues to take his Protonix and he has some. At this time he has had CTs I do not believe a CT is needed today. There is no evidence of pancreatitis clinically especially his symptoms improved. He does have history of hepatomegaly with some elevated transaminases however they are unchanged. Talk to mom who also given history and she is okay with discharge the patient does not meet admission criteria. Lab Data Labs: Laboratory Results - last 24 hr 05/23/23 12:25 WBC 4.1 L RBC 4.78 Hgb 12.8 L Hct 40.5 MCV 84.7 MCH 26.8 L MCHC 31.6 L RDW Std Deviation 44.0 H RDW Coeff of Cesar 14.3 Plt Count 263 MPV 10.0 Immature Gran % (Auto) 1.200 H Neut % (Auto) 59.4 Lymph % (Auto) 28.5 [place] % (Auto) 10.5 H Eos % (Auto) 0.2 Baso % (Auto) 0.2 Absolute Neuts (auto) 2.4 Absolute Lymphs (auto) 1.17 Nucleated RBC % 0 Sodium 137 Potassium 3.9 Chloride 108 H Carbon Dioxide 22.0 Anion Gap 7 BUN 9 Creatinine 0.71 Estim Creat Clear Calc 125.07 Est GFR (MDRD) Af Amer 166 Est GFR (MDRD) Non-Af 137 BUN/Creatinine Ratio 12.7 Glucose 94 Calcium 8.6 Total Bilirubin 0.60 AST 111 H ALT 125 H Alkaline Phosphatase 136 H Total Protein 7.0 Albumin 3.0 L Globulin 4.0 Albumin/Globulin Ratio 0.8 L Discharge Plan Triage Chief Complaint: Abd Pain Other Complaint: Nausea/Vomiting ED Provider: Jean Paul Kerr Dx/Rx/DC Orders Clinical Impression: Acute dehydration, Splenomegaly, Cerebral palsy, Hepatosplenomegaly, Gastritis Instructions: ED Dehydration (Adult), ED Gastritis (Adult) Prescriptions: No Action pantoprazole [Protonix] 40 mg tablet,delayed release (DR/EC) 40 mg PO DAILY 14 Days Qty: 14 0RF ondansetron 4 mg tablet,disintegrating 4 mg PO Q8H PRN PRN (Reason: Nausea) Qty: 10 0RF metoclopramide HCl [Reglan] 10 mg tablet 10 mg PO Q6H PRN (Reason: nausea and vomiting) Qty: 20 0RF pantoprazole [Protonix] 40 mg tablet,delayed release (DR/EC) 40 mg PO DAILY Qty: 30 0RF ondansetron 4 mg tablet,disintegrating 4 mg PO Q6H PRN (Reason: nausea and vomiting) Qty: 20 0RF Primary Care Provider: Rica Corea Referrals: Rica Corea MD [Primary Care Provider] - 3-5 Days Jared Holcomb MD [Non-Staff] - 3-5 Days Disposition Disposition: Home, Self Care
[2023-05-23 12:38] LABS: Absolute Lymphocyte Count 1.17 X10^3/uL (0.83-4.51); Absolute Neutrophil Count 2.4 X10^3/uL (2.0-7.7); Basophil# 0.01 X10^3/uL; Basophil% 0.2 % (0-1); Eosinophil# 0.01 X10^3/uL; Eosinophils% 0.2 % (0-5); Hematocrit 40.5 % (40-54); Hemoglobin 12.8 g/dL (13.0-16.5); Lymphocyte # 1.17 X10^3/ul (0.83-4.51); Lymphocyte % 28.5 % (19-41); Mean Corp Hgb Conc 31.6 g/dL (32-36); Mean Corpuscular Hgb 26.8 pg (27.0-32.0); Mean Corpuscular Volume 84.7 fL (80-94); Monocyte# 0.43 X10^3/uL; Monocyte% 10.5 % (0-10); NRBC Flagged by Analyzer 0 % (0-5); Neutrophil # 2.43 X10^3/uL (2.7-7.7); Neutrophil % 59.4 % (47-70); Platelet Count 263 K/mm3 (150-450); RBC Distribution Width CV 14.3 % (11.6-14.6); Red Blood Count 4.78 M/mm3 (4.6-6.2); White Blood Count 4.1 K/mm3 (4.4-11.0)
[2023-05-23] MEDS: 0.9% Normal Saline (1000mL) 1,000 ML 1000 ML IV (12:44)
[2023-05-23] MEDS: Ondansetron 4 MG/2 ML Vial IV ×2 (12:45→20:49)
[2023-05-23] MEDS: Famotidine 200 MG/20 ML MDV 20 MG in 0.9% Normal Saline (Pres. free 8 ML 300 MG IV (12:45)
[2023-05-23 12:52] LABS: ALB/GLOB Ratio 0.8 RATIO (0.9-2.4); AST(SGOT) 111 U/L (15-37); Alanine Aminotransfer ALT/SGPT 125 U/L (16-61); Alkaline Phosphatase 136 U/L (45-117); Anion Gap 7 (5-15); BUN 9 mg/dL (7-18); BUN/Creat Ratio 12.7 RATIO (10-20); Calcium,Total 8.6 mg/dL (8.5-10.1); Chloride 108 mmol/L (98-107); Creatinine, Serum 0.71 mg/dL (0.70-1.30); EST Glomerular Filtration Rate 137 mL/min (>60); Est Glom Filt Rate - Afr Amer 166 mL/min (>60); Estimated Creatinine Clearance 125.07 ml/min; Glucose 94 mg/dL (74-106); Potassium 3.9 mmol/L (3.5-5.1); Sodium Level 137 mmol/L (136-145)
[2023-05-23] MEDS: Metoclopramide 10 MG/2 ML Vial 5 MG IV (13:33)
[2023-05-23] MEDS: Mag Hydrox/Al Hydrox/Simeth 30 ML UDC PO (13:33)
[2023-05-23 14:02] VITALS: RESP 18
[2023-05-23] MEDS: Morphine 4 MG/ML Syringe IV (14:09)
[2023-05-23] MEDS: Haloperidol Lactate 5 MG/ML Vial 1 MG IV (14:09)
[2023-05-23 14:20] VITALS: BP 108/56; PULSE 84; RESP 18; TEMP 36.5; O2SAT 97
--- NOTE | 2023-05-23 15:25 | PCM.HP.STD ---
HPI - General General Date of Admission: 05/23/23 Date of Service: 05/23/23 Chief Complaint: Nausea and vomiting HPI Narrative LAISHA AMARO, is a 32 M with history of gastritis and cerebral palsy presented to [facility] 05/23/2023 with nausea and vomiting and difficulty tolerating p.o. No family members at bedside so history taken per report and per patient's ability. Patient reported that he has been throwing up and gagging with food for few months but worse over the past 2 days. Has some left-sided abdominal pain that is aching in nature and does not radiate, does not know the last time he had a bowel movement. He initially symptomatically improved and plan was for him to discharge home however he vomited again and had abdominal pain so hospitalist contacted for admission. In the ED AST 111 with ALT of 125 and ALP 136, these were elevated last month as well with similar values, lab work-up overall otherwise unremarkable. Patient seen at bedside reports feeling slightly better but still with his recurrent nausea and vomiting he will be admitted. FOR[facility] Medical History Abnormal findings on diagnostic imaging of other abdominal regions, including retroperitoneum Abnormal findings on diagnostic imaging of other parts of digestive tract Attention deficit hyperactivity disorder Depression Hepatosplenomegaly Infantile cerebral palsy Splenomegaly Home Medications NK 05/23/23 [History Last Taken Unknown] Allergy/AdvReac Type Severity Reaction Status Date / Time No Known Allergies Allergy Verified 05/06/23 08:42 Family History Mother Seizures Social History Smoking Status: Never smoker ROS ROS Narrative General: Denies fever/chills HENT: Denies headache, denies stuffy nose, denies sore throat EYES: Denies changes in vision Resp: Denies cough, denies shortness of breath Cardiac: Denies chest pain GI: Some left-sided aching abdominal pain nonradiating, nausea, vomiting, gagging, he is unsure when he had a bowel movement : Denies changes in urination Extremity: Denies swelling MSK: Denies weakness Neuro: Denies any numbness/tingling Heme: Denies any bleeding or bruising Skin: Denies rashes Psychiatric: No complaints voiced Vital Signs Vital Signs Vital Signs: 05/23/23 12:02 05/23/23 14:02 05/23/23 14:20 Temperature 96.0 F L 97.7 F L Temperature Source Temporal Temporal Pulse Rate 92 84 Respiratory Rate 20 H 18 18 Blood Pressure 101/46 L 108/56 L Blood Pressure Mean 64 73 Pulse Ox 99 97 Oxygen Delivery Method Room Air Room Air Weight Weight: 81.193 kg Body Mass Index (BMI) 30.7 Physical Exam Narrative General: Alert, no acute distress HEENT: Atraumatic, normocephalic Eyes: Anicteric, normal conjunctiva, extraocular movements grossly intact Neck: Supple Respiratory: Clear to auscultation bilaterally, normal respiratory effort Cardiovascular: Regular rate and rhythm GI: Soft, nontender, nondistended Extremities: No edema Musculoskeletal: Moving all extremities Neuro: No overt focal neurological deficits Skin: No rashes appreciated Psych: Cooperative Results Lab / Micro Data 05/23/23 12:25 05/23/23 12:25 Labs: Laboratory Results - last 24 hr 05/23/23 12:25: WBC 4.1 L, RBC 4.78, Hgb 12.8 L, Hct 40.5, MCV 84.7, MCH 26.8 L, MCHC 31.6 L, RDW Std Deviation 44.0 H, RDW Coeff of Cesar 14.3, Plt Count 263, MPV 10.0, Immature Gran % (Auto) 1.200 H, Neut % (Auto) 59.4, Lymph % (Auto) 28.5, [place] % (Auto) 10.5 H, Eos % (Auto) 0.2, Baso % (Auto) 0.2, Absolute Neuts (auto) 2.4, Absolute Lymphs (auto) 1.17, Nucleated RBC % 0, Sodium 137, Potassium 3.9, Chloride 108 H, Carbon Dioxide 22.0, Anion Gap 7, BUN 9, Creatinine 0.71, Estim Creat Clear Calc 125.07, Est GFR (MDRD) Af Amer 166, Est GFR (MDRD) Non-Af 137, BUN/Creatinine Ratio 12.7, Glucose 94, Calcium 8.6, Total Bilirubin 0.60, AST 111 H, ALT 125 H, Alkaline Phosphatase 136 H, Total Protein 7.0, Albumin 3.0 L, Globulin 4.0, Albumin/Globulin Ratio 0.8 L Assessment & Plan Assessment/Plan (1) Abdominal pain: (2) Cerebral palsy: PLAN: Plan #Intractable n/v -History obtained per report and patient has no family members at bedside, seems that this has been an acute on chronic problem -Does have reported gastritis and is seeing Dr. Weston but has not had upper endoscopy yet -We will give IV PPI -Check lipase -We will check CT of abdomen to assess for any obstruction or inflammation/contributing factor aside from possible gastritis -Antiemetics, fluids #Elevated transaminases -Unclear etiology -Checking CT of the abdomen, bili within normal limits and his pain not classic for cholecystitis nor his clinical picture #Cerebral palsy -Lives with mother at home -Chronic, supportive care #DVT ppx: SCDs Joanne Garcia MD Charges/Coding Visit Charges Inpatient E&M: 94911 Init Hosp L2
[2023-05-23] MEDS: 0.9% Saline Lock 10 ML Syringe IV ×2 (16:12→20:49)
[2023-05-23] MEDS: 0.9% Normal Saline (1000mL) 1,000 ML 100 ML IV (16:12)
[2023-05-23] MEDS: Pantoprazole Sodium 40 MG in 0.9% Normal Saline (100mL MB+) 100 ML 330 MG IV (16:12)
[2023-05-23 16:16] VITALS: BMI 30.7
--- NOTE | 2023-05-23 17:00 | CT_ITS ---
STUDY: CT ABDOMEN AND PELVIS WITH CONTRAST REASON FOR EXAM: Male, 32 years old. abdominal pain and intractable n/v RADIATION DOSAGE (If Supplied By Facility): CTDIvol = ( 16.25 ) mGy, DLP = ( 1176.40 ) mGycm TECHNIQUE: Transaxial images were obtained from the dome of the diaphragm to the symphysis pubis without oral contrast. IV 100mL Isovue-370 was administered. Sagittal and coronal images were reconstructed. Individualized dose optimization techniques were used for this CT. COMPARISON: None. FINDINGS: The visualized lung bases are unremarkable. The visualized portions of the heart are within normal limits. Exam limited by streak artifact from very dense barium, especially in the pelvis. There is hepatomegaly with diffuse hepatic enlargement. Normal gallbladder and extrahepatic biliary system. There is moderate splenomegaly. Normal pancreas. Normal bilateral adrenal glands. Normal right kidney. Normal left kidney. Normal visualized stomach. Normal small intestine. Normal colon. Evaluation of the rectosigmoid is markedly limited because of very dense intraluminal barium. The appendix is visualized and appears normal. Normal abdominal aorta. Normal inferior vena cava. Normal retroperitoneum. Normal urinary bladder. Normal abdominal wall. Normal osseous structures. CT/Abdomen/Pelvis WITH Contrast IMPRESSION: Exam limited by very dense barium in the GI tract. Hepatosplenomegaly. No definite acute abnormality. Electronically Signed: Johnny Hope MD at 18:06 EDT ,
[2023-05-23 19:40] LABS: Lipase 57 U/L (13-75)
[2023-05-23 21:29] VITALS: BP 130/85; PULSE 95; RESP 18; TEMP 36.6; O2SAT 98
[2023-05-23] MEDS: MELATONIN 3 MG TABLET PO (21:32)
--- NOTE | 2023-05-23 21:36 | NURSING ---
called and notified Satish's mother that we will be moving him to room 323.
[2023-05-24] MEDS: 0.9% Normal Saline (1000mL) 1,000 ML 100 ML IV (02:29)
[2023-05-24 02:30] VITALS: BP 111/73; PULSE 70; RESP 18; TEMP 36.4; O2SAT 99
[2023-05-24 07:27] LABS: Absolute Lymphocyte Count 0.92 X10^3/uL (0.83-4.51); Absolute Neutrophil Count 2.7 X10^3/uL (2.0-7.7); Basophil# 0.01 X10^3/uL; Basophil% 0.2 % (0-1); Hematocrit 36.4 % (40-54); Hemoglobin 11.7 g/dL (13.0-16.5); Lymphocyte # 0.92 X10^3/ul (0.83-4.51); Lymphocyte % 22.9 % (19-41); Mean Corp Hgb Conc 32.1 g/dL (32-36); Mean Corpuscular Volume 83.9 fL (80-94); Mean Platelet Vol. 9.6 fl (6.2-12.0); Monocyte# 0.35 X10^3/uL; Monocyte% 8.7 % (0-10); NRBC Flagged by Analyzer 0 % (0-5); Neutrophil # 2.68 X10^3/uL (2.7-7.7); Neutrophil % 66.7 % (47-70); Platelet Count 281 K/mm3 (150-450); RBC Distribution Width CV 14.1 % (11.6-14.6); RBC Distribution Width SD 43.2 fl (35.1-43.9); Red Blood Count 4.34 M/mm3 (4.6-6.2)
--- NOTE | 2023-05-24 07:46 | NURSING ---
pt has been npo since midnight
[2023-05-24 08:16] LABS: ALB/GLOB Ratio 0.8 RATIO (0.9-2.4); AST(SGOT) 86 U/L (15-37); Alanine Aminotransfer ALT/SGPT 108 U/L (16-61); Albumin, Serum 2.9 g/dL (3.2-5.0); Alkaline Phosphatase 129 U/L (45-117); Anion Gap 7 (5-15); BUN 5 mg/dL (7-18); BUN/Creat Ratio 8.2 RATIO (10-20); Calcium,Total 8.4 mg/dL (8.5-10.1); Chloride 109 mmol/L (98-107); Creatinine, Serum 0.61 mg/dL (0.70-1.30); EST Glomerular Filtration Rate 162 mL/min (>60); Est Glom Filt Rate - Afr Amer 196 mL/min (>60); Estimated Creatinine Clearance 145.57 ml/min; Globulin 3.8 g/dL (2.2-4.2); Glucose 104 mg/dL (74-106); Potassium 3.8 mmol/L (3.5-5.1); Protein, Total 6.7 g/dL (6.4-8.2); Sodium Level 138 mmol/L (136-145); Thyroid Stim Hormone (TSH) 4.74 uIU/mL (0.358-3.74)
[2023-05-24 08:30] VITALS: BP 116/65; PULSE 89; RESP 18; TEMP 36.3; O2SAT 99
[2023-05-24 11:01] VITALS: PULSE 76; RESP 16
[2023-05-24 11:10] VITALS: PULSE 76; RESP 16; O2SAT 100
[2023-05-24] MEDS: Pantoprazole Sodium 40 MG in 0.9% Normal Saline (100mL MB+) 100 ML 330 MG IV (11:36)
--- NOTE | 2023-05-24 12:56 | CASEMGMT ---
Pt mother called in and asked to speak with TJ VICENTE. TJ VICENTE returned call, she asks if she can pick pt up by 2pm today. Hospitalist at nurses station who states he will dc today and that will not be a problem. She states she has an appt herself. She denies any questions for the hospitalist. She denies any homegoing needs as well. Pt nurse aware that she will pick pt up by 2pm.
--- NOTE | 2023-05-24 13:12 | DCINST_ITS ---
Discharge Instructions Diet Discharge Diet: Light diet - advance as tolerated Activity Discharge Activity: Return to Normal Activity Dressing / Incision Call your doctor if you observe: Fever of 101 or Higher, Shortness of breath, Dizziness, Fainting spells, Swelling in the ankles, Chest pain and Increased palpitations (irregular heartbeat) Follow Up Care Test Results: Test results from this visit will be discussed in further detail at your follow- up appointment, if applicable. Discharge Plan Admission Admit Date/Time: 05/23/23 15:25 Attending Provider: Manuel Peralta Primary Care Provider: Rica Corea Consulting Providers: Joanne Garcia Instructions Patient Instructions: ED Dehydration (Adult), ED Gastritis (Adult) Discharge Orders/Prescriptions Prescriptions: New polyethylene glycol 3350 [Miralax] 17 gram/dose powder 17 g PO DAILY Qty: 238 0RF Referrals / Follow Up: Rica Corea MD [Primary Care Provider] - 3-5 Days Jared Holcomb MD [Non-Staff] - 3-5 Days Disposition Disposition (needs filled in before D/C Order can be placed): Home, Self Care
[2023-05-24 13:13] VITALS: BP 101/56; PULSE 74; RESP 18; TEMP 37.2; O2SAT 98
--- NOTE | 2023-05-24 13:14 | PCM.DC.SUM ---
Providers Date of Admission: 05/23/23 Primary Care Physician: Dr. Rica Corea MD Reason For Visit: NAUSEA VOMITING Diagnosis Discharge Diagnosis (1) Abdominal pain: Status: Inactive Code(s): R10.9 - Unspecified abdominal pain (2) Cerebral palsy: Status: Chronic Code(s): G80.9 - Cerebral palsy, unspecified Medications at Discharge Home Medications polyethylene glycol 3350 17 gram/dose oral powder (Miralax) 17 g PO DAILY #238 grams 05/24/23 Hospital Course Operations None Procedures None Summary of Care Provided Minutes Spent on Discharge: 31 Hospital Course: Per HPI: LAISHA AMARO, kieran a 32 M with history of gastritis and cerebral palsy presented to [facility] 05/23/2023 with nausea and vomiting and difficulty tolerating p.o. No family members at bedside so history taken per report and per patient's ability. Patient reported that he has been throwing up and gagging with food for few months but worse over the past 2 days. Has some left-sided abdominal pain that is aching in nature and does not radiate, does not know the last time he had a bowel movement. He initially symptomatically improved and plan was for him to discharge home however he vomited again and had abdominal pain so hospitalist contacted for admission. In the ED AST 111 with ALT of 125 and ALP 136, these were elevated last month as well with similar values, lab work-up overall otherwise unremarkable. Patient seen at bedside reports feeling slightly better but still with his recurrent nausea and vomiting he will be admitted. Hospital Course: 1. Abdominal pain and intractable nausea and vomiting with constipation/elevated LFTs/hepatosplenomegaly?32-year-old male with a history of cerebral palsy presented to the hospital with intractable nausea and vomiting. He has been having outpatient GI work-up secondary to elevated LFTs without any significant findings at the moment though he has not had an EGD yet. On presentation he had a CT scan of his abdomen and pelvis which did show some significant barium contrast in the right and left colon, there does appear to be some fecalization of the stool on the right side. He was having significant abdominal pain and nausea and vomiting overnight and then he had a large volume BM and immediately started to feel much better said that his abdominal pain resolved. There was an attempt to have a gastric emptying study however he could not tolerate the oatmeal texture and would gag trying to eat it. When he returned to the floor he was given softer foods which he was tolerating just fine and he was drinking water very well without nausea or vomiting. This could just be all due to constipation so I do recommend MiraLAX daily to titrate to a soft BM every day. I do recommend outpatient follow-up with your PCP as well as your sap basis. Physical Exam Narrative General: Alert, cooperative, No apparent distress HEENT: Atraumatic, PERRLA, EOMI, Normocephalic Oral: Moist Mucosa Neck: Supple, No JVD Lungs: Clear to auscultation, Normal air movement, No rhonchi, No wheeze, No rales Cardiovascular: Regular rate, Regular Rhythm, Normal S1, Normal S2, No murmurs Abdomen: Soft, Non Tender, Non-Distended Extremities: No edema, Capillary Refill Less than 3 Seconds Skin: No rashes, No breakdown Musculoskeletal: No Tenderness to Palpation of Joints or Extremities Neurological: Motor Exam 5/5 strength throughout, Sensory exam intact to light touch and pain Psych/Mental Status: Normal Affect, Appropriate Weight / BMI Weight Weight: 179 lb Body Mass Index (BMI) 30.7 ABG / Lab / Microbiology Data 05/24/23 07:06 05/24/23 07:06 Laboratory: Laboratory Results - last 24 hr 05/23/23 12:25: Lipase 57 05/24/23 07:06: WBC 4.0 L, RBC 4.34 L, Hgb 11.7 L, Hct 36.4 L, MCV 83.9, MCH 27.0, MCHC 32.1, RDW Std Deviation 43.2, RDW Coeff of Cesar 14.1, Plt Count 281, MPV 9.6, Immature Gran % (Auto) 1.500 H, Neut % (Auto) 66.7, Lymph % (Auto) 22.9, [place] % (Auto) 8.7, Eos % (Auto) 0.0, Baso % (Auto) 0.2, Absolute Neuts (auto) 2.7, Absolute Lymphs (auto) 0.92, Nucleated RBC % 0, Sodium 138, Potassium 3.8, Chloride 109 H, Carbon Dioxide 22.0, Anion Gap 7, BUN 5 L, Creatinine 0.61 L, Estim Creat Clear Calc 145.57, Est GFR (MDRD) Af Amer 196, Est GFR (MDRD) Non-Af 162, BUN/Creatinine Ratio 8.2 L, Glucose 104, Calcium 8.4 L, Total Bilirubin 0.60, AST 86 H, ALT 108 H, Alkaline Phosphatase 129 H, Total Protein 6.7, Albumin 2.9 L, Globulin 3.8, Albumin/Globulin Ratio 0.8 L, TSH 4.74 H Radiography Diagnostic Testing: Radiology Impression Abdomen/Pelvis CT 05/23/23 17:00 IMPRESSION: Exam limited by very dense barium in the GI tract. Hepatosplenomegaly. No definite acute abnormality. Electronically Signed: Johnny Hope MD at 18:06 EDT , D/C Instructions Discharge Diet: Light diet - advance as tolerated Call your doctor if you observe: Fever of 101 or Higher, Shortness of breath, Dizziness, Fainting spells, Swelling in the ankles, Chest pain and Increased palpitations (irregular heartbeat) Meaningful Use Info Meaningful Use Diagnoses (Choose all that apply): None applicable Discharge Plan Admission Admit Date/Time: 05/23/23 15:25 Attending Provider: Manuel Peralta Primary Care Provider: Rica Corea Consulting Providers: Joanne Garcia Instructions Patient Instructions: ED Dehydration (Adult), ED Gastritis (Adult) Discharge Orders/Prescriptions Prescriptions: New polyethylene glycol 3350 [Miralax] 17 gram/dose powder 17 g PO DAILY Qty: 238 0RF Referrals / Follow Up: Rica Corea MD [Primary Care Provider] - 3-5 Days Jared Holcomb MD [Non-Staff] - 3-5 Days Disposition Disposition (needs filled in before D/C Order can be placed): Home, Self Care Charges/Coding Visit Charges Inpatient E&M: 95527 Disch Hosp >30min
== END 2023-05-24 13:59 | disposition home or self-care (01) ==
LOC: ED 14:09 → MS3 15:37
PROVIDERS: Admitting Provider Internal Medicine; Emergency Provider Emergency Medicine; PCP Family Medicine; Visit Provider Family Medicine
DX: R10.13 Epigastric pain (principal); G80.9 Cerebral palsy, unspecified; E86.0 Dehydration; K29.70 Gastritis, unspecified, without bleeding; R16.2 Hepatomegaly with splenomegaly, not elsewhere classified; R16.1 Splenomegaly, not elsewhere classified; R11.2 Nausea with vomiting, unspecified; Z79.899 Other long term (current) drug therapy; K59.00 Constipation, unspecified
CPT/HCPCS: 36415; 74177; 80053; 83690; 84443; 85025; 96361; 96365; 96366; 96367; 96375; 96376; 99221; 99284; J7030; Q9967; A4216; G0378; J2405; J3490

== ENCOUNTER 2023-06-06 13:22 | Emergency (ER) | payer MEDICARE, MEDICAID, SELFPAY ==
[2023-06-06 13:24] VITALS: BP 109/76; PULSE 130; RESP 18; TEMP 36.8; O2SAT 96; BMI 29.5
--- NOTE | 2023-06-06 14:32 | ED.VIS.GI ---
HPI HPI - GI History of Present Illness Chief Complaint: Nausea/Vomiting Informant: patient and parent Nausea/Vomiting/Emesis GI Symptom: Positive for Nausea and Vomiting Onset: Days Quality: Positive for Nonbilious; Negative for Blood streaks, Coffee ground or Hematemesis Severity: Severe Diarrhea/Melena/Hematochezia GI Symptom: Negative for Diarrhea, Melena or Hematochezia Onset: Weeks Associated Symptoms Associated Symptoms: Negative for Dysuria, Frequency or Hematuria Narrative Narrative: Patient presents with nausea and vomiting that has been persistent for the past week. Patient has been unable to keep anything down. Mother states the patient has been gagging anytime he tries to put anything into his mouth. Mother states that he was prescribed antiemetics which she has been unable to keep down. Mother denies any fevers or chills. Patient denies any diarrhea, melena, or hematochezia. Patient denies any hematemesis or coffee-ground emesis. Patient denies any abdominal pain. [facility] Medical History (Updated 06/06/23 @ 17:[address] Marcos Amaro DO) Abnormal findings on diagnostic imaging of other abdominal regions, including retroperitoneum Abnormal findings on diagnostic imaging of other parts of digestive tract Attention deficit hyperactivity disorder Cerebral palsy Depression Hepatosplenomegaly Hepatosplenomegaly Infantile cerebral palsy Home Medications polyethylene glycol 3350 17 gram/dose oral powder (Miralax) 17 g PO DAILY #238 grams 05/24/23 [Rx Last Taken Unknown] promethazine 25 mg rectal suppository (Promethegan) 25 mg RECTAL Q6H PRN PRN Nausea ##6 06/06/23 [Rx Last Taken Unknown] Allergy/AdvReac Type Severity Reaction Status Date / Time No Known Allergies Allergy Verified 06/06/23 13:23 Family History Mother Seizures Surgical History (Updated 06/06/23 @ 14:[address] Marcos Amaro DO) Hx of foot surgery Social History Smoking Status: Never smoker ROS ROS ED Constitutional Constitutional ED: Denies chills or fever(s) Eyes Eyes: Denies blurry vision or change in vision ENT ENT ED: Denies rhinorrhea or sore throat Cardiovascular Cardiovascular: Denies chest pain or palpitations Respiratory/Chest Respiratory/Chest: Denies cough or dyspnea Gastrointestinal Gastrointestinal: Reports nausea and vomiting; Denies abdominal pain or diarrhea Genitourinary Genitourinary ED: Denies dysuria or hematuria Musculoskeletal Musculoskeletal: Denies back pain or neck pain Integumentary Denies abscess or rash Neurologic Neurologic: Denies headache(s) or weakness Allergic/Immunologic Allergic/Immunologic ED: Denies mouth swelling or urticaria EXAM Physical Exam Const Vital Signs: 06/06/23 13:24 06/06/23 14:36 06/06/23 16:00 Temperature 98.2 F 99.9 F H Temperature Source Temporal Oral Pulse Rate 130 H 74 Respiratory Rate 18 18 Blood Pressure 109/76 118/72 Blood Pressure Mean 87 87 Pulse Ox 96 98 Oxygen Delivery Method Room Air Room Air Positive well nourished and well developed General Appearance ED: well developed and NAD HEENT Reports dry mucous membranes normocephalic and atraumatic Mouth ED: Yes dry mucous membranes Mouth: dry mucous membranes Neck supple and no JVD Resp normal respiratory effort and clear to auscultation bilaterally Cardio regular rate and regular rhythm GI normal to inspection, nondistended, normoactive bowel sounds and non-tender Palpation: soft Extremity normal to inspection General Extremety ED: Negative for edema or tenderness General Extremity: Negative for edema Neuro oriented x3, CN's II-XII intact bilaterally, moves all extremities and no sensory deficits noted Sensorium / Orientation: alert Psych mental status grossly normal Skin no rashes or lesions noted MDM MDM MDM Narrative Medical decision making narrative: Differential diagnosis includes gastroenteritis, colitis, dehydration, pancreatitis, urinary tract infection, and electrolyte abnormality. CBC will be obtained to assess for leukocytosis and anemia. Comprehensive metabolic profile will be obtained to assess for hepatic function, renal function, and electrolyte abnormality. Lipase will be obtained to assess for pancreatitis. Urinalysis will be obtained to assess for urinary tract infection. Lab Data Attestation: I reviewed the patient's lab results. Lab results narrative: CBC was reviewed. There is a mild anemia with a hemoglobin of 12.1 and hematocrit 37.9. White blood cell count was slightly low at 3.7. The remainder is within normal limits. Comprehensive metabolic profile was reviewed. AST was slightly elevated at 117, ALT was slightly elevated at 108, and alkaline phosphatase was slightly elevated at 196. The remainder was essentially within normal limits. Lipase was reviewed and was normal at 37. Urinalysis was reviewed. Urine ketones were 150. There is no evidence of urinary tract infection or hematuria. Labs: Laboratory Results - last 24 hr 06/06/23 06/06/23 14:15 16:15 WBC 3.7 L RBC 4.59 L Hgb 12.1 L Hct 37.9 L MCV 82.6 MCH 26.4 L MCHC 31.9 L RDW Std Deviation 45.2 H RDW Coeff of Cesar 14.9 H Plt Count 204 MPV 9.6 Immature Gran % (Auto) 0.800 Neut % (Auto) 80.7 H Lymph % (Auto) 11.4 L [place] % (Auto) 6.8 Eos % (Auto) 0.0 Baso % (Auto) 0.3 Absolute Neuts (auto) 3.0 Absolute Lymphs (auto) 0.42 L Nucleated RBC % 0 Differential Comment SCANNED Diff Path Review May foll Sodium 133 L Potassium 4.3 Chloride 105 Carbon Dioxide 22.0 Anion Gap 6 BUN 12 Creatinine 0.96 Estim Creat Clear Calc 92.50 Est GFR (MDRD) Af Amer 117 Est GFR (MDRD) Non-Af 96 BUN/Creatinine Ratio 12.5 Glucose 113 H Calcium 8.9 Total Bilirubin 1.00 AST 117 H ALT 108 H Alkaline Phosphatase 196 H Total Protein 7.4 Albumin 3.2 Globulin 4.2 Albumin/Globulin Ratio 0.8 L Lipase 37 Urine Color Yellow Urine Clarity Clear Urine pH 6.0 Ur Specific Uneeda 1.020 Urine Protein 30 H Urine Glucose (UA) Normal Urine Ketones 150 A* Urine Occult Blood 10 H Urine Nitrite Negative Urine Bilirubin 3 H Urine Urobilinogen 4 H Ur Leukocyte Esterase 25 H Urine RBC 0 SEEN Urine WBC 0 SEEN Ur Squamous Epith Cells 0 SEEN Urine Bacteria 1+ Urine Mucus 0 SEEN Differential Diagnosis Abdominal Pain: Appendicitis Reason(s) appendicitis less likely: Positive for clinical exam does not supportclinical exam does not support, Cholecystitis, Pancreatitis, Bowel obstruction Reason(s) bowel obstruction less likely: bowel sounds present on exam and UTI Treatment and Re-Evaluation :: Patient was given IV fluids and Zofran. Patient is feeling better on reevaluation. Mother feels that a suppository may be more beneficial for the patient then the Zofran ODT's. Patient was given a prescription for Phenergan suppositories. Patient was instructed to start with small amounts of liquids more frequently. Patient was instructed to follow-up with his primary care physician in 5 to 7 days. Patient and mother understood and were agreeable with the plan. All questions were answered. Discharge Plan Triage Chief Complaint: Nausea/Vomiting ED Provider: Marcos Amaro Dx/Rx/DC Orders Clinical Impression: Nausea and vomiting, Dehydration Instructions: ED Dehydration (Adult), ED Vomiting (Adult) Prescriptions: New promethazine [Promethegan] 25 mg suppository 25 mg RECTAL Q6H PRN PRN (Reason: Nausea) Qty: 6 0RF No Action polyethylene glycol 3350 [Miralax] 17 gram/dose powder 17 g PO DAILY Qty: 238 0RF Primary Care Provider: Rica Corea Referrals: Rica Corea MD [Primary Care Provider] - 5-7 Days Disposition Disposition: Home, Self Care
[2023-06-06] MEDS: 0.9% Normal Saline (1000mL) 1,000 ML 1000 ML IV (14:34)
[2023-06-06] MEDS: Ondansetron 4 MG/2 ML Vial IV (14:34)
[2023-06-06 14:36] VITALS: TEMP 37.7
[2023-06-06 14:37] LABS: Absolute Lymphocyte Count 0.42 X10^3/uL (0.83-4.51); Basophil# 0.01 X10^3/uL; Basophil% 0.3 % (0-1); Hematocrit 37.9 % (40-54); Hemoglobin 12.1 g/dL (13.0-16.5); Lymphocyte # 0.42 X10^3/ul (0.83-4.51); Lymphocyte % 11.4 % (19-41); Mean Corp Hgb Conc 31.9 g/dL (32-36); Mean Corpuscular Hgb 26.4 pg (27.0-32.0); Mean Corpuscular Volume 82.6 fL (80-94); Mean Platelet Vol. 9.6 fl (6.2-12.0); Monocyte# 0.25 X10^3/uL; Monocyte% 6.8 % (0-10); NRBC Flagged by Analyzer 0 % (0-5); Neutrophil # 2.96 X10^3/uL (2.7-7.7); Neutrophil % 80.7 % (47-70); POSITIVE DIFFERENTIAL YES; Platelet Count 204 K/mm3 (150-450); RBC Distribution Width CV 14.9 % (11.6-14.6); RBC Distribution Width SD 45.2 fl (35.1-43.9); Red Blood Count 4.59 M/mm3 (4.6-6.2); White Blood Count 3.7 K/mm3 (4.4-11.0)
[2023-06-06 14:48] LABS: ALB/GLOB Ratio 0.8 RATIO (0.9-2.4); AST(SGOT) 117 U/L (15-37); Alanine Aminotransfer ALT/SGPT 108 U/L (16-61); Albumin, Serum 3.2 g/dL (3.2-5.0); Alkaline Phosphatase 196 U/L (45-117); Anion Gap 6 (5-15); BUN 12 mg/dL (7-18); BUN/Creat Ratio 12.5 RATIO (10-20); Calcium,Total 8.9 mg/dL (8.5-10.1); Chloride 105 mmol/L (98-107); Creatinine, Serum 0.96 mg/dL (0.70-1.30); EST Glomerular Filtration Rate 96 mL/min (>60); Est Glom Filt Rate - Afr Amer 117 mL/min (>60); Globulin 4.2 g/dL (2.2-4.2); Glucose 113 mg/dL (74-106); Potassium 4.3 mmol/L (3.5-5.1); Protein, Total 7.4 g/dL (6.4-8.2); Sodium Level 133 mmol/L (136-145)
[2023-06-06 14:57] LABS: Lipase 37 U/L (13-75)
[2023-06-06 14:59] LABS: Differential Indicated SCAN CRITERIA MET
[2023-06-06 15:19] LABS: Differential Comment SCANNED
[2023-06-06 16:00] VITALS: BP 118/72; PULSE 74; RESP 18; O2SAT 98
[2023-06-06 16:21] LABS: Mucous, Urine 0 SEEN /hpf (<or=2+); Red Blood Cells-Urine 0 SEEN /hpf (0-5); Squamous Epithelial Cells - UA 0 SEEN /hpf (0-5); White Blood Cells 0 SEEN /hpf (0-5)
[2023-06-06 16:32] LABS: Color, Urine Yellow (Yellow); Glucose, Dipstick Normal (Normal); Leukocyte Esterase-Dipstick 25 /ul (Negative); Nitrite-Dipstick Negative (Negative); Occult Blood-Urine 10 /ul (Negative); Protein-Dipstick 30 mg/dl (Negative); Urine Clarity Clear (Clear); Urine Urobilinogen 4 mg/dl (Normal)
[2023-06-06 16:39] LABS: Urine Bilirubin Dipstick 3 mg/dL (Negative)
[2023-06-06 16:40] LABS: Ketone-Dipstick 150 mg/dl (Negative)
[2023-06-06 16:45] LABS: Bacteria 1+ /hpf (None Seen)
[2023-06-06 17:23] VITALS: BP 109/69; PULSE 81; RESP 16; O2SAT 98
[2023-06-07 12:15] LABS: Pathologist Review Reviewed
== END 2023-06-06 17:28 | disposition home or self-care (01) ==
PROVIDERS: Emergency Provider Emergency Medicine; PCP Family Medicine; Visit Provider Emergency Medicine
DX: R11.2 Nausea with vomiting, unspecified (principal); E86.0 Dehydration
CPT/HCPCS: 80053; 81001; 83690; 85025; 96361; 96374; 99282; J7030; J2405

== ENCOUNTER → 2023-06-26 | Outpatient (CLI) | payer MEDICARE, MEDICAID, SELFPAY ==
--- NOTE | 2023-06-26 09:12 | US_ITS ---
STUDY: ABDOMINAL ULTRASOUND - RIGHT UPPER QUADRANT; ELASTOGRAPHY REASON FOR VISIT: Male, 32 years old. Hepatosplenomegaly. Nausea and vomiting. TECHNIQUE: Ultrasound evaluation of the right upper quadrant was performed with real-time and static chung-scale imaging. Point quantification shear wave elastography was performed ([employer]). TECHNICAL QUALITY: Adequate. COMPARISON: Comparison is made with prior study dated February 06, 2022. FINDINGS: Liver: The liver is enlarged and measures 18.8 cm. There is increased echogenicity consistent with fatty infiltration. The bile ducts are within normal limits. There is hepatic color flow. The direction of portal flow is hepatopetal. There is no demonstrated mass lesion. Median liver stiffness measured 6.3 kPa. Gallbladder: Normal distended gallbladder. The gallbladder wall measures 2.9 mm. There is a negative sonographic Tovar''s sign. There is no pericholecystic fluid. There are no gallstones. There is a 1.2 cm polyp adherent to the gallbladder wall. Common Bile Duct (C.B.D.): The common bile duct measures 4.7 mm. Pancreas: There is normal echogenicity of the visualized pancreas. There is no demonstrated pancreatic mass or cyst. Right Kidney: Normal size of the right kidney. The right kidney measures 10.5 cm x 4.9 cm x 4.7 cm. Normal renal cortex. The right cortex measures 1.5 cm. There is no demonstrated renal mass or cyst. There is no right hydronephrosis. US/ABD Limited w/ Elastography IMPRESSION: 1. Liver stiffness measures 6.3 kPa compatible with F2-F3 (Mild to moderate liver fibrosis) Metavir score. Electronically Signed: Wil Motley MD at 11:10 EDT ,
== END | disposition home or self-care (01) ==
LOC: US 09:12
PROVIDERS: PCP Family Medicine; Referring Provider Internal Medicine Medical Oncology; Visit Provider Internal Medicine Medical Oncology
DX: R74.8 Abnormal levels of other serum enzymes (principal); R16.2 Hepatomegaly with splenomegaly, not elsewhere classified
CPT/HCPCS: 76705; 76981

== ENCOUNTER 2024-04-14 20:37 | Emergency (ER) | payer MEDICARE, MEDICAID, SELFPAY ==
[2024-04-14 20:43] VITALS: BP 134/96; PULSE 76; RESP 16; TEMP 36.6; O2SAT 99
[2024-04-14 21:38] VITALS: BP 140/87; PULSE 66; RESP 18; O2SAT 96
[2024-04-14 21:41] LABS: Absolute Lymphocyte Count 2.95 X10^3/uL (0.83-4.51); Absolute Neutrophil Count 5.7 X10^3/uL (2.0-7.7); Basophil# 0.02 X10^3/uL; Basophil% 0.2 % (0-1); Eosinophil# 0.11 X10^3/uL; Eosinophils% 1.2 % (0-5); Hematocrit 40.9 % (40-54); Hemoglobin 14.1 g/dL (13.0-16.5); Lymphocyte # 2.95 X10^3/ul (0.83-4.51); Lymphocyte % 30.9 % (19-41); Mean Corp Hgb Conc 34.5 g/dL (32-36); Mean Corpuscular Hgb 29.3 pg (27.0-32.0); Mean Corpuscular Volume 84.9 fL (80-94); Mean Platelet Vol. 8.8 fl (6.2-12.0); Monocyte# 0.68 X10^3/uL; Monocyte% 7.1 % (0-10); NRBC Flagged by Analyzer 0 % (0-5); Neutrophil # 5.74 X10^3/uL (2.7-7.7); Neutrophil % 60.2 % (47-70); Platelet Count 374 K/mm3 (150-450); RBC Distribution Width CV 12.5 % (11.6-14.6); RBC Distribution Width SD 38.6 fl (35.1-43.9); Red Blood Count 4.82 M/mm3 (4.6-6.2); White Blood Count 9.5 K/mm3 (4.4-11.0)
[2024-04-14 21:50] LABS: Alcohol, Blood (Medical)-Serum < 3.0 mg/dL
[2024-04-14 21:51] LABS: Anion Gap 11 (5-15); BUN 27 mg/dL (7-18); BUN/Creat Ratio 38.8 RATIO (10-20); Calcium,Total 9.2 mg/dL (8.5-10.1); Chloride 110 mmol/L (98-107); EST Glomerular Filtration Rate 138 mL/min (>60); Est Glom Filt Rate - Afr Amer 167 mL/min (>60); Estimated Creatinine Clearance 184.28 ml/min; Glucose 115 mg/dL (74-106); Potassium 3.5 mmol/L (3.5-5.1); Sodium Level 142 mmol/L (136-145)
[2024-04-14 22:00] VITALS: BP 138/84; PULSE 60; RESP 16; O2SAT 98
[2024-04-14 22:53] LABS: Amphetamine Urine VISTA NEGATIVE (<1000 ng/mL); Barbiturate Urine VISTA NEGATIVE (< 200 ng/mL); Benzodiazepine Urine VISTA NEGATIVE (< 200 ng/mL); Cocaine Urine VISTA NEGATIVE (< 300 ng/mL); Ecstacy Urine VISTA NEGATIVE (< 500 ng/mL); Methadone Urine VISTA NEGATIVE (< 300 ng/mL); PCP Urine VISTA NEGATIVE (< 25 ng/mL); THC Urine VISTA NEGATIVE (< 50 ng/mL)
[2024-04-14 23:00] VITALS: BP 147/98; PULSE 67; RESP 18; O2SAT 98
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
[2024-04-15 06:06] LABS: Vista UDS pH Range 5
[2024-04-15 06:58] VITALS: BP 139/91; PULSE 101; RESP 18; O2SAT 99
[2024-04-15 09:17] VITALS: BP 138/79; PULSE 72; RESP 16; TEMP 36.4; O2SAT 98
--- NOTE | 2024-04-15 09:28 | ED.RN ---
REPORT CALLED TO [facility]BRING NURSE SHARMILA RN.
== END 2024-04-15 09:30 ==
PROVIDERS: Emergency Provider Emergency Medicine; PCP Family Medicine; Visit Provider Emergency Medicine
DX: R45.850 Homicidal ideations (principal); G80.9 Cerebral palsy, unspecified; R45.851 Suicidal ideations; F32.A Depression, unspecified; Z79.899 Other long term (current) drug therapy
CPT/HCPCS: 80048; 80307; 82077; 85025; 99285

== ENCOUNTER → 2024-06-29 | Outpatient (CLI) | payer MEDICARE, MEDICAID, SELFPAY ==
--- NOTE | 2024-06-29 08:58 | US_ITS ---
STUDY: ABDOMINAL ULTRASOUND - RIGHT UPPER QUADRANT; ELASTOGRAPHY REASON FOR VISIT: Male, 33 years old. Hepatosplenomegaly. TECHNIQUE: Ultrasound evaluation of the right upper quadrant was performed with real-time and static chung-scale imaging. Point quantification shear wave elastography was performed ([employer]). TECHNICAL QUALITY: Limited. Examination limited by bowel gas. COMPARISON: Comparison is made with prior study dated June 26, 2023. FINDINGS: Liver: The liver is enlarged and measures 18.5 cm. There is increased echogenicity consistent with fatty infiltration. The bile ducts are within normal limits. There is hepatic color flow. The direction of portal flow is hepatopetal. There is no demonstrated mass lesion. Median liver stiffness measured 5.8 kPa. Gallbladder: Normal distended gallbladder. The gallbladder wall measures 2.7 mm. There is a negative sonographic Tovar''s sign. There is no pericholecystic fluid. There are no gallstones. Common Bile Duct (C.B.D.): The common bile duct measures 5.2 mm. Pancreas: Limited visualization due to overlying bowel gas. Right Kidney: Normal size of the right kidney. The right kidney measures cm. Normal renal cortex. The right cortex measures cm. There is no demonstrated renal mass or cyst. There is no right hydronephrosis. US/ABD Limited w/ Elastography IMPRESSION: 1. Liver stiffness measures 5.8 kPa compatible with F2-F3 (Mild to moderate liver fibrosis) Metavir score. 2. Fatty infiltration of the liver. Electronically Signed: Wil Motley MD at 10:41 EDT ,
== END | disposition home or self-care (01) ==
LOC: US 08:49
PROVIDERS: PCP Family Medicine; Referring Provider Internal Medicine Medical Oncology; Visit Provider Internal Medicine Medical Oncology
DX: K74.00 Hepatic fibrosis, unspecified (principal); R16.2 Hepatomegaly with splenomegaly, not elsewhere classified
CPT/HCPCS: 76705; 76981

== ENCOUNTER → 2024-07-08 | Outpatient (CLI) | payer MEDICARE, MEDICAID, SELFPAY ==
--- NOTE | 2024-07-08 13:53 | RAD_ITS ---
INDICATION: chest pain, unspecified EXAMINATION/TECHNIQUE: X-RAY - XR Chest 2 Views COMPARISON: Prior study dated: 07/04/2022 FINDINGS: LINES/DEVICES: None. LUNGS: No consolidation, edema or effusion. No pneumothorax. MEDIASTINUM AND CARDIOVASCULAR STRUCTURES: Cardiac silhouette not enlarged. Central airways and mediastinal contour are unremarkable. BONES AND SOFT TISSUES: Unremarkable. RAD/Chest PA and Lateral IMPRESSION: No radiographic evidence of acute cardiopulmonary disease. Electronically Signed: Yonathan Reyna MD at 14:29 EDT ,
[2024-07-08 15:26] LABS: Absolute Lymphocyte Count 2.93 X10^3/uL (0.83-4.51); Absolute Neutrophil Count 5.3 X10^3/uL (2.0-7.7); Basophil# 0.04 X10^3/uL; Basophil% 0.4 % (0-1); Eosinophil# 0.22 X10^3/uL; Eosinophils% 2.3 % (0-5); Hematocrit 42.5 % (40-54); Hemoglobin 14.3 g/dL (13.0-16.5); Lymphocyte # 2.93 X10^3/ul (0.83-4.51); Mean Corp Hgb Conc 33.6 g/dL (32-36); Mean Corpuscular Hgb 29.8 pg (27.0-32.0); Mean Corpuscular Volume 88.5 fL (80-94); Monocyte# 0.94 X10^3/uL; Monocyte% 9.9 % (0-10); NRBC Flagged by Analyzer 0 % (0-5); Neutrophil # 5.27 X10^3/uL (2.7-7.7); Neutrophil % 55.9 % (47-70); Platelet Count 351 K/mm3 (150-450); RBC Distribution Width CV 12.6 % (11.6-14.6); White Blood Count 9.5 K/mm3 (4.4-11.0)
[2024-07-08 15:46] LABS: ALB/GLOB Ratio 0.9 RATIO (0.9-2.4); AST(SGOT) 24 U/L (15-37); Alanine Aminotransfer ALT/SGPT 60 U/L (16-61); Albumin, Serum 3.5 g/dL (3.2-5.0); Alkaline Phosphatase 91 U/L (45-117); Anion Gap 6 (5-15); BUN 14 mg/dL (7-18); BUN/Creat Ratio 23.3 RATIO (10-20); Calcium,Total 8.7 mg/dL (8.5-10.1); Chloride 106 mmol/L (98-107); EST Glomerular Filtration Rate 163 mL/min (>60); Est Glom Filt Rate - Afr Amer 198 mL/min (>60); Globulin 3.9 g/dL (2.2-4.2); Glucose 91 mg/dL (74-106); Protein, Total 7.4 g/dL (6.4-8.2); Sodium Level 139 mmol/L (136-145)
== END | disposition home or self-care (01) ==
LOC: MTLAB 13:49
PROVIDERS: PCP Family Medicine
DX: R07.9 Chest pain, unspecified (principal)
CPT/HCPCS: 36415; 71046; 80053; 85025

== ENCOUNTER 2024-08-18 18:25 | Emergency (ER) | payer MEDICARE, MEDICAID, SELFPAY ==
[2024-08-18 18:27] VITALS: BP 110/78; PULSE 76; RESP 18; TEMP 36.3; O2SAT 98; BMI 31.4
--- NOTE | 2024-08-18 18:33 | RAD_ITS ---
INDICATION: chest pain EXAMINATION/TECHNIQUE: X-RAY - XR Chest 1 View COMPARISON: July 08, 2024 FINDINGS: LINES/DEVICES: None. LUNGS: No consolidation, edema or effusion. No pneumothorax. MEDIASTINUM AND CARDIOVASCULAR STRUCTURES: Cardiac silhouette not enlarged. Central airways and mediastinal contour are unremarkable. BONES AND SOFT TISSUES: Unremarkable. RAD/Chest 1 View (Portable) IMPRESSION: No radiographic evidence of acute cardiopulmonary disease. Electronically Signed: Sinan Villanueva DO at 20:46 EST ,
--- NOTE | 2024-08-18 18:33 | EKG12_ITS ---
Test Reason : CP Blood Pressure : */* mmHG Vent. Rate : 66 BPM Atrial Rate : 66 BPM P-R Int : 140 ms QRS Dur : 92 ms QT Int : 414 ms P-R-T Axes : 18 -11 -3 degrees QTcB Int : 434 ms Normal sinus rhythm Nonspecific T wave abnormality Abnormal ECG Confirmed by SANDRA JACOBS, NADIA ([id number]), website/blog editor ELVIA ALLISON ([id number]) on 08/26/2024 2:46:31 PM Referred By: Confirmed By: NADIA FLORES MD
[2024-08-18 18:58] LABS: Absolute Lymphocyte Count 3.16 X10^3/uL (0.83-4.51); Basophil# 0.03 X10^3/uL; Basophil% 0.3 % (0-1); Eosinophil# 0.17 X10^3/uL; Eosinophils% 1.9 % (0-5); Hematocrit 42.7 % (40-54); Hemoglobin 14.8 g/dL (13.0-16.5); Lymphocyte # 3.16 X10^3/ul (0.83-4.51); Lymphocyte % 34.6 % (19-41); Mean Corp Hgb Conc 34.7 g/dL (32-36); Mean Corpuscular Hgb 29.1 pg (27.0-32.0); Mean Corpuscular Volume 84.1 fL (80-94); Mean Platelet Vol. 9.1 fl (6.2-12.0); Monocyte# 0.75 X10^3/uL; Monocyte% 8.2 % (0-10); NRBC Flagged by Analyzer 0 % (0-5); Neutrophil # 4.98 X10^3/uL (2.7-7.7); Neutrophil % 54.7 % (47-70); Platelet Count 334 K/mm3 (150-450); RBC Distribution Width CV 12.6 % (11.6-14.6); RBC Distribution Width SD 38.5 fl (35.1-43.9); Red Blood Count 5.08 M/mm3 (4.6-6.2); White Blood Count 9.1 K/mm3 (4.4-11.0)
[2024-08-18 19:12] LABS: Anion Gap 6 (5-15); BUN 25 mg/dL (7-18); BUN/Creat Ratio 35.8 RATIO (10-20); Calcium,Total 9.4 mg/dL (8.5-10.1); Chloride 112 mmol/L (98-107); EST Glomerular Filtration Rate 138 mL/min (>60); Est Glom Filt Rate - Afr Amer 167 mL/min (>60); Estimated Creatinine Clearance 175.84 ml/min; Glucose 95 mg/dL (74-106); Potassium 3.7 mmol/L (3.5-5.1); Sodium Level 141 mmol/L (136-145); Troponin-I HS (w/2H Reflex) < 3 pg/mL (3.0-78.0)
[2024-08-18 20:15] VITALS: BP 124/81; PULSE 68; RESP 20; O2SAT 97
[2024-08-18 20:48] LABS: Reflex Troponin-HS? (from REC) Y
--- NOTE | 2024-08-18 20:57 | EDS_ITS ---
HPI History of Present Illness Chief Complaint: Chest Pain Onset/Context/Timing Onset: Days (2) Activity at onset: gradual Timing: Intermittent Quality: Positive for Dull Location: Left Chest Worsened By: Nothing Relieved By: Nothing Associated Symptoms: Negative for Nausea, Vomiting, Diaphoresis, Dyspnea, Cough, Fever, Lightheadedness, Acid Reflux or Palpitations Narrative Narrative: Patient presents with left-sided chest pain that has been intermittent over the last 2 days. Patient describes his pain as dull. Patient states nothing makes it better and nothing makes it worse. Patient states it is mainly over the left side of his chest. Patient denies any shortness of breath. Patient denies any cough. Patient denies any nausea or vomiting. Patient denies any fevers or chills. Patient denies any cardiac or PE risk factors. CVD Risk Factors: Negative for Hypertension, Diabetes, Hypercholesterolemia, Family History 1' </=55 or Smoking PE Risk Factors: Negative for Recent Travel/Surgery, Recent Immobilization, Prior DVT or PE, Cancer or OCP + Smoking + >/=35 PFSH PFSH Medical History Abnormal findings on diagnostic imaging of other abdominal regions, including retroperitoneum Abnormal findings on diagnostic imaging of other parts of digestive tract Hepatosplenomegaly Hepatosplenomegaly Infantile cerebral palsy Depression Attention deficit hyperactivity disorder Cerebral palsy Home Medications ?Medication ?Instructions ?Recorded ?Last Taken ?Type fluoxetine 40 mg capsule 40 mg PO DAILY 04/14/24 Unknown History Allergy/AdvReac Type Severity Reaction Status Date / Time No Known Allergies Allergy Verified 08/18/24 18:26 Family History Mother Seizures Surgical History Hx of foot surgery Social History Smoking Status: Never smoker ROS ROS ED Constitutional Constitutional ED: Denies chills or fever(s) Eyes Eyes: Denies blurry vision or change in vision ENT ENT ED: Denies rhinorrhea or sore throat Cardiovascular Cardiovascular: Reports chest pain; Denies palpitations Respiratory/Chest Respiratory/Chest: Denies cough or dyspnea Gastrointestinal Gastrointestinal: Denies nausea or vomiting Genitourinary Genitourinary ED: Denies dysuria or hematuria Musculoskeletal Musculoskeletal: Denies back pain or neck pain Integumentary Denies abscess or rash Neurologic Neurologic: Denies headache(s) or weakness Allergic/Immunologic Allergic/Immunologic ED: Denies mouth swelling or urticaria EXAM Physical Exam Const Vital Signs: 08/18/24 18:27 08/18/24 20:15 08/18/24 20:27 Temperature 97.3 F L Temperature Source Temporal Pulse Rate 76 68 Respiratory Rate 18 20 H Blood Pressure 110/78 124/81 H Blood Pressure Mean 88 95 Pulse Ox 98 97 Oxygen Delivery Method Room Air Room Air Positive well nourished and well developed General Appearance ED: well developed and NAD HEENT Reports moist mucous membranes Neck supple and no JVD Chest Wall Chest Narrative: There is reproducible tenderness over the left chest wall. There is no bony crepitance or step-off. There is no subcutaneous emphysema palpated. Resp normal respiratory effort and clear to auscultation bilaterally Cardio regular rate and regular rhythm GI soft to palpation, non-tender and non-distended Extremity General Extremety ED: Negative for edema or tenderness General Extremity: Negative for edema Neuro oriented x3 and CN's II-XII intact bilaterally Sensorium / Orientation: awake and alert Psych mental status grossly normal Heart Score History: Slightly/Non-Suspicious ECG: Nonspecific Repolarization Age: </= 45 years Risk Factors: No Risk Factors Troponin: </= Normal Limit Score: 1 MDM MDM MDM Narrative Medical decision making narrative: Differential diagnosis includes cardiac dysrhythmia, cardiac ischemia, pneumonia, pneumothorax, electrolyte abnormality, musculoskeletal pain, and anxiety. Patient has a Wells score of 0 and has no PE risk factors. I do not feel this is from a pulmonary embolism. EKG will be obtained to assess for cardiac dysrhythmia and cardiac ischemia. Chest x-ray will be obtained to assess for pneumonia and pneumothorax. CBC will be obtained to assess for leukocytosis and anemia. Basic metabolic profile will be obtained to assess for electrolyte abnormality and renal function. High-sensitivity troponin will be obtained to assess for cardiac ischemia. 2-hour repeat high-sensitivity troponin will be obtained to assess for ongoing cardiac ischemia. Lab Data Attestation: I reviewed the patient's lab results. Lab results narrative: CBC was reviewed and was within normal limits. Basic metabolic profile was reviewed and was essentially within normal limits. Initial high-sensitivity troponin was reviewed and was less than 3. 2-hour repeat high-sensitivity troponin was reviewed and was less than 3. Labs: Laboratory Results - last 24 hr 08/18/24 18:45 WBC 9.1 RBC 5.08 Hgb 14.8 Hct 42.7 MCV 84.1 MCH 29.1 MCHC 34.7 RDW Std Deviation 38.5 RDW Coeff of Cesar 12.6 Plt Count 334 MPV 9.1 Immature Gran % (Auto) 0.300 Neut % (Auto) 54.7 Lymph % (Auto) 34.6 [place] % (Auto) 8.2 Eos % (Auto) 1.9 Baso % (Auto) 0.3 Absolute Neuts (auto) 5.0 Absolute Lymphs (auto) 3.16 Nucleated RBC % 0 Sodium 141 Potassium 3.7 Chloride 112 H Carbon Dioxide 24.0 Anion Gap 6 BUN 25 H Creatinine 0.70 Estim Creat Clear Calc 175.84 Est GFR (MDRD) Af Amer 167 Est GFR (MDRD) Non-Af 138 BUN/Creatinine Ratio 35.8 H Glucose 95 Calcium 9.4 Troponin I High Sens < 3 L Radiography Chest X-Ray - ED: 1 View, Read by ED Physician, Read by Radiologist and No Acute Disease Diagnostic Testing: Clinical Impression(s) from Imaging Studies Chest X-Ray 08/18/24 18:33 IMPRESSION: No radiographic evidence of acute cardiopulmonary disease. Electronically Signed: Sinan Villanueva DO at 20:46 EST Reading Location ID and State: [address] [place] [address] Tel [phone], Service support , Portable 1 view chest x-ray was obtained. On my independent interpretation, lung irving are clear. There is normal cardiac silhouette. Bony thorax is normal. There is no acute process noted. Radiologist also interpreted the x- ray and agrees. EKG Initial EKG: Attestation: I personally reviewed and interpreted this EKG as follows: Interpretation: Sinus Rhythm (66) and Non-Specific ST Changes Comments: EKG was obtained. On my independent interpretation, it showed a normal sinus rhythm with a rate of 66. TN interval, QRS interval, and QTc intervals were all normal. [place] was normal. There are nonspecific ST-T wave changes. Prior EKG tracings: available for review Prior: Unchanged (07/03/2022) Treatment and Re-Evaluation :: Patient was advised of his findings. Patient has a HEART score of 1. Patient was advised that this is low risk for acute cardiac event. Patient was instructed to take Tylenol or ibuprofen as needed for pain. Patient was instructed to follow-up with his primary care physician in 5 to 7 days for further evaluation. Patient understood and was agreeable with the plan. All questions were answered. Discharge Plan Triage Chief Complaint: Chest Pain ED Provider: Marcos Amaro Dx/Rx/DC Orders Clinical Impression: Chest pain Instructions: ED Chest Pain, Uncertain Cause Prescriptions: No Action fluoxetine 40 mg capsule 40 mg PO DAILY Primary Care Provider: Rica Corea Referrals: Rica Corea MD [Primary Care Provider] - 5-7 Days Print Language: Georgian Disposition Disposition: Home, Self Care
[2024-08-18 21:27] LABS: Troponin-I HS < 3 pg/mL (3.0-78.0)
[2024-08-18 22:00] VITALS: BP 118/88; PULSE 77; RESP 20; O2SAT 96
== END 2024-08-18 22:19 | disposition home or self-care (01) ==
PROVIDERS: Emergency Provider Emergency Medicine; PCP Family Medicine; Visit Provider Emergency Medicine
DX: R07.9 Chest pain, unspecified (principal)
CPT/HCPCS: 71045; 80048; 84484; 85025; 93005; 99285; A4216

== ENCOUNTER 2025-01-13 21:54 | Emergency (ER) | payer MEDICARE, MEDICAID, SELFPAY ==
[2025-01-13 21:55] VITALS: BP 137/85; PULSE 91; RESP 18; TEMP 37.1; O2SAT 100; BMI 33.6
--- NOTE | 2025-01-13 22:11 | EKG12_ITS ---
Test Reason : MHC Blood Pressure : */* mmHG Vent. Rate : 85 BPM Atrial Rate : 85 BPM P-R Int : 144 ms QRS Dur : 90 ms QT Int : 370 ms P-R-T Axes : 34 -11 1 degrees QTcB Int : 440 ms Normal sinus rhythm Nonspecific T wave abnormality Abnormal ECG Confirmed by Canelo Almendarez ([id number]), editor index KELLEY TALLEY ([id number]) on 01/15/2025 12:14:57 PM Referred By: Confirmed By: Canelo Almendarez
--- NOTE | 2025-01-13 22:11 | EX.ED.VIS.PS ---
HPI HPI - Psych History of Present Illness Chief Complaint: Suicidal Informant: patient and EMS Narrative Narrative: 34-year-old male called dispatch because he was having thoughts of harm himself. He states this is related to voices in his head that are telling him to do this. He was carrying around a knife today at home according to his mom, according to EMS/police who pink slipped him here. He came willingly and wanted treatment. He sees psychiatry Dr. Tomas at the counseling center. States has been compliant with his medications. Denies any drug use or abuse. Denies any recent illness. Denies any injury, states he does not want to harm anybody else but the voices that are talking to him or saying things about him potentially hurting other people, again he has no intent on doing that. He does not want help. PFSH [facility] Medical History Abnormal findings on diagnostic imaging of other abdominal regions, including retroperitoneum Abnormal findings on diagnostic imaging of other parts of digestive tract Hepatosplenomegaly Hepatosplenomegaly Infantile cerebral palsy Depression Attention deficit hyperactivity disorder Cerebral palsy Home Medications ?Medication ?Instructions ?Recorded ?Last Taken ?Type fluoxetine 40 mg capsule 40 mg PO DAILY 04/14/24 Unknown History divalproex 250 mg tablet,delayed 250 mg PO BID 01/13/25 Unknown History release Allergy/AdvReac Type Severity Reaction Status Date / Time No Known Allergies Allergy Verified 01/13/25 21:55 Family History Mother Seizures Surgical History Hx of foot surgery Social History Smoking Status: Never smoker ROS ROS ED Constitutional Constitutional ED: Denies chills or fever(s) Eyes Eyes: Denies change in vision or diplopia ENT ENT ED: Denies rhinorrhea or sore throat Cardiovascular Cardiovascular: Denies chest pain or palpitations Respiratory/Chest Respiratory/Chest: Denies cough or dyspnea Gastrointestinal Gastrointestinal: Denies abdominal pain, diarrhea, nausea or vomiting Genitourinary Genitourinary ED: Denies dysuria or hematuria Musculoskeletal Musculoskeletal: Denies back pain or neck pain Integumentary Denies abscess or rash Neurologic Neurologic: Denies headache(s), paresthesias or weakness Psychiatric Psychiatric: Reports auditory hallucinations, suicidal ideation and suicidal thoughts; Denies homicidal ideation EXAM Physical Exam Const Vital Signs: 01/13/25 21:55 01/13/25 22:54 Temperature 98.7 F Temperature Source Oral Pulse Rate 91 97 Respiratory Rate 18 16 Blood Pressure 137/85 H 155/92 H Blood Pressure Mean 102 113 Pulse Ox 100 100 Oxygen Delivery Method Room Air Room Air Positive well nourished and well developed Constitutional Narrative: Cooperative General Appearance ED: well developed and NAD HEENT Reports moist mucous membranes normocephalic and atraumatic Eyes PERRL and EOMs intact bilaterally General Eye ED: Negative for scleral icterus Neck no lymphadenopathy and supple Resp normal respiratory effort and clear to auscultation bilaterally Cardio no murmurs Rate: regular rate Rhythm: regular rhythm GI non-tender and non-distended Auscultation: normoactive bowel sounds Palpation: soft Back/Spine no CVA tenderness and normal ROM Extremity normal to inspection General Extremety ED: Negative for edema General Extremity: Negative for edema Neuro oriented x3, CN's II-XII intact bilaterally, no sensory deficits noted and gait normal Sensorium / Orientation: alert Motor Exam: strength 5/5 throughout Psych mental status grossly normal, thought process normal, cooperative, activity/motor behavior normal and denies homicidal ideation Mood & Affect: flat affect Thought Content: suicidality Skin Lesions: no lesions Rashes: no rashes MDM MDM MDM Narrative Medical decision making narrative: Labs, alcohol, toxicology obtained in addition to an EKG. All unremarkable. Patient's vital signs are normal clinically he is well with a benign exam. He is medically cleared for crisis to evaluate. I think he should probably be admitted to psychiatry which I discussed with him and I wrote up a new pink slip. Lab Data Attestation: I reviewed the patient's lab results. Labs: Laboratory Results - last 24 hr 01/13/25 01/13/25 22:09 23:20 WBC 9.0 RBC 5.19 Hgb 15.1 Hct 42.7 MCV 82.3 MCH 29.1 MCHC 35.4 RDW Std Deviation 38.4 RDW Coeff of Cesar 12.9 Plt Count 354 MPV 8.8 Immature Gran % (Auto) 0.600 Neut % (Auto) 62.0 Lymph % (Auto) 25.2 [place] % (Auto) 11.2 H Eos % (Auto) 0.6 Baso % (Auto) 0.4 Absolute Neuts (auto) 5.6 Absolute Lymphs (auto) 2.27 Nucleated RBC % 0 Sodium 138 Potassium 4.0 Chloride 104 Carbon Dioxide 20.9 L Anion Gap 14 BUN 18 Creatinine 0.84 Estim Creat Clear Calc 151.36 Est GFR (MDRD) Non-Af 118 BUN/Creatinine Ratio 21.8 H Glucose 105 H Calcium 9.8 Total Bilirubin 0.32 AST 26 ALT 40 Alkaline Phosphatase 92 Total Protein 7.7 Albumin 4.4 Globulin 3.3 Albumin/Globulin Ratio 1.3 Urine Opiates Screen NEGATIVE U Buprenorphine Qual NEGATIVE Ur Oxycodone Screen NEGATIVE Urine Methadone Screen NEGATIVE Urine Fentanyl Screen NEGATIVE Ur Barbiturates Screen NEGATIVE Ur Phencyclidine Scrn NEGATIVE Ur Amphetamines Screen NEGATIVE U Benzodiazepines Scrn NEGATIVE Urine Cocaine Screen NEGATIVE U Cannabinoids Screen NEGATIVE Ethyl Alcohol < 10.1 Rhythm Strip Rhythm Strip: Sinus Rhythm Rate: 85 Ectopy: None EKG Initial EKG: Attestation: I personally reviewed and interpreted this EKG as follows: Interpretation: Sinus Rhythm and No Acute Injury Pattern Comments: Nml axis & intervals; nml EKG Management 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
[2025-01-13 22:54] VITALS: BP 155/92; PULSE 97; RESP 16; O2SAT 100
[2025-01-13 23:03] LABS: Amphetamine Urine NEGATIVE (<1000 ng/mL); Barbiturate Urine NEGATIVE (< 200 ng/mL); Benzodiazepine Urine NEGATIVE (< 200 ng/mL); Buprenorphine Urine NEGATIVE (< 200 ng/mL); Cocaine Urine NEGATIVE (< 300 ng/mL); Fentanyl, Urine NEGATIVE; Methadone Urine NEGATIVE (< 300 ng/mL); Opiates Urine NEGATIVE (< 300 ng/mL); Oxycodone, Urine NEGATIVE (< 100 ng/mL); PCP Urine NEGATIVE (< 25 ng/mL); THC Urine NEGATIVE (< 50 ng/mL)
[2025-01-13 23:27] LABS: Absolute Lymphocyte Count 2.27 X10^3/uL (0.83-4.51); Absolute Neutrophil Count 5.6 X10^3/uL (2.0-7.7); Basophil# 0.04 X10^3/uL; Basophil% 0.4 % (0-1); Eosinophil# 0.05 X10^3/uL; Eosinophils% 0.6 % (0-5); Hematocrit 42.7 % (40-54); Hemoglobin 15.1 g/dL (13.0-16.5); Lymphocyte # 2.27 X10^3/ul (0.83-4.51); Lymphocyte % 25.2 % (19-41); Mean Corp Hgb Conc 35.4 g/dL (32-36); Mean Corpuscular Hgb 29.1 pg (27.0-32.0); Mean Corpuscular Volume 82.3 fL (80-94); Mean Platelet Vol. 8.8 fl (6.2-12.0); Monocyte# 1.01 X10^3/uL; Monocyte% 11.2 % (0-10); NRBC Flagged by Analyzer 0 % (0-5); Neutrophil # 5.59 X10^3/uL (2.7-7.7); Platelet Count 354 K/mm3 (150-450); RBC Distribution Width CV 12.9 % (11.6-14.6); RBC Distribution Width SD 38.4 fl (35.1-43.9); Red Blood Count 5.19 M/mm3 (4.6-6.2)
[2025-01-13 23:47] LABS: ALB/GLOB Ratio 1.3 RATIO (0.9-2.4); AST(SGOT) 26 U/L (<=37); Alanine Aminotransfer ALT/SGPT 40 U/L (<=46); Albumin, Serum 4.4 g/dL (3.5-5.0); Alcohol, Blood (Medical)-Serum < 10.1 mg/dL (<=10.0); Alkaline Phosphatase 92 U/L (40-129); Anion Gap 14 (5-15); BUN 18 mg/dL (4-19); BUN/Creat Ratio 21.8 RATIO (10-20); Calcium,Total 9.8 mg/dL (7.6-11.0); Carbon Dioxide 20.9 mmol/L (21.0-32.0); Chloride 104 mmol/L (98-108); Creatinine, Serum 0.84 mg/dL (0.70-1.20); EST Glomerular Filtration Rate 118 (>60); Estimated Creatinine Clearance 151.36 ml/min (50-250); Globulin 3.3 g/dL (2.2-4.2); Glucose 105 mg/dL (70-99); Protein, Total 7.7 g/dL (5.9-8.4); Sodium Level 138 mmol/L (133-145); Total Bilirubin 0.32 mg/dL (0.00-1.30)
[2025-01-14] VITALS: BP 143/80; PULSE 83; RESP 19; O2SAT 98
--- NOTE | 2025-01-14 05:34 | ED.RN ---
Report called to [facility], no further questions at this time. Pt mother called and updated on plan of care/transfer.
[2025-01-14 05:45] VITALS: BP 132/78; PULSE 100; RESP 18; TEMP 36.8; O2SAT 98
[2025-01-14 05:46] VITALS: BP 132/78; PULSE 100; RESP 18; TEMP 36.8; O2SAT 98
[2025-01-14] MEDS: Fluoxetine HCl 40 MG CAPSULE PO (07:07)
[2025-01-14] MEDS: Divalproex Sodium 250 MG Tablet PO (07:07)
[2025-01-14 08:30] VITALS: BP 150/95; PULSE 118; RESP 17; O2SAT 99
== END 2025-01-14 08:35 ==
PROVIDERS: Emergency Provider Emergency Medicine; PCP Family Medicine; Visit Provider Emergency Medicine
DX: R45.851 Suicidal ideations (principal); R44.0 Auditory hallucinations
CPT/HCPCS: 36415; 80053; 80307; 82077; 85025; 93005; 99285

== ENCOUNTER → 2025-01-23 | Outpatient (CLI) | payer MEDICARE, MEDICAID, SELFPAY ==
[2025-01-23 08:25] LABS: Absolute Lymphocyte Count 2.38 X10^3/uL (0.83-4.51); Absolute Neutrophil Count 4.7 X10^3/uL (2.0-7.7); Basophil# 0.03 X10^3/uL; Basophil% 0.4 % (0-1); Eosinophil# 0.19 X10^3/uL; Eosinophils% 2.4 % (0-5); Hematocrit 41.7 % (40-54); Hemoglobin 14.2 g/dL (13.0-16.5); Lymphocyte # 2.38 X10^3/ul (0.83-4.51); Lymphocyte % 30.1 % (19-41); Mean Corp Hgb Conc 34.1 g/dL (32-36); Mean Corpuscular Hgb 28.9 pg (27.0-32.0); Mean Corpuscular Volume 84.9 fL (80-94); Mean Platelet Vol. 9.1 fl (6.2-12.0); Monocyte# 0.56 X10^3/uL; Monocyte% 7.1 % (0-10); NRBC Flagged by Analyzer 0 % (0-5); Neutrophil % 59.4 % (47-70); Platelet Count 337 K/mm3 (150-450); RBC Distribution Width CV 13.2 % (11.6-14.6); RBC Distribution Width SD 40.2 fl (35.1-43.9); Red Blood Count 4.91 M/mm3 (4.6-6.2); White Blood Count 7.9 K/mm3 (4.4-11.0)
[2025-01-23 08:40] LABS: Ammonia 26.6 umol/L (16-60); Valproic Acid (Depakene) Level 30 ug/mL (50-100)
[2025-01-23 08:41] LABS: ALB/GLOB Ratio 1.4 RATIO (0.9-2.4); AST(SGOT) 24 U/L (<=37); Alanine Aminotransfer ALT/SGPT 42 U/L (<=46); Alkaline Phosphatase 72 U/L (40-129); Anion Gap 11 (5-15); BUN 17 mg/dL (4-19); BUN/Creat Ratio 29.1 RATIO (10-20); Calcium,Total 9.4 mg/dL (7.6-11.0); Carbon Dioxide 22.2 mmol/L (21.0-32.0); Chloride 107 mmol/L (98-108); Creatinine, Serum 0.59 mg/dL (0.70-1.20); EST Glomerular Filtration Rate 130 (>60); Globulin 2.8 g/dL (2.2-4.2); Glucose 100 mg/dL (70-99); Potassium 4.3 mmol/L (3.3-5.1); Protein, Total 6.8 g/dL (5.9-8.4); Sodium Level 140 mmol/L (133-145); Total Bilirubin 0.16 mg/dL (0.00-1.30)
== END | disposition home or self-care (01) ==
PROVIDERS: PCP Family Medicine; Referring Provider Psychiatry & Neurology Psychiatry; Visit Provider Psychiatry & Neurology Psychiatry
DX: Z79.899 Other long term (current) drug therapy (principal)
CPT/HCPCS: 36415; 80053; 80164; 82140; 85025

== ENCOUNTER 2025-01-27 19:10 | Emergency (ER) | payer MEDICARE, MEDICAID, SELFPAY ==
[2025-01-27 19:12] VITALS: BP 136/77; PULSE 83; RESP 17; TEMP 37; O2SAT 96
--- NOTE | 2025-01-27 19:24 | EKG12_ITS ---
Test Reason : CP Blood Pressure : */* mmHG Vent. Rate : 78 BPM Atrial Rate : 78 BPM P-R Int : 154 ms QRS Dur : 94 ms QT Int : 390 ms P-R-T Axes : 38 -13 4 degrees QTcB Int : 444 ms Normal sinus rhythm Normal ECG Confirmed by ADELITA JACOBS, LIANE ([id number]), film editor VISHAL PEOPLES ([id number]) on 02/02/2025 6:47:17 AM Referred By: Nate Mueller Confirmed By: LIANE UREÑA MD
--- NOTE | 2025-01-27 19:45 | RAD_ITS ---
PROCEDURE: CHEST PA AND LATERAL 01/27/2025 REASON FOR EXAM: CHEST PAIN TECHNIQUE: Frontal and lateral views of the chest. COMPARISON: None. FINDINGS: Hardware: None. Heart: The heart size is normal. Mediastinum: The mediastinal contour is unremarkable. Lungs: The lungs are clear. Bones: The bones are unremarkable. RAD/Chest PA and Lateral IMPRESSION: NO ACUTE FINDINGS. Reading Location: [id number]
[2025-01-27 19:49] LABS: Absolute Lymphocyte Count 2.99 X10^3/uL (0.83-4.51); Absolute Neutrophil Count 6.9 X10^3/uL (2.0-7.7); Basophil# 0.05 X10^3/uL; Basophil% 0.4 % (0-1); Eosinophil# 0.24 X10^3/uL; Eosinophils% 2.1 % (0-5); Hematocrit 44.3 % (40-54); Hemoglobin 15.1 g/dL (13.0-16.5); Lymphocyte # 2.99 X10^3/ul (0.83-4.51); Lymphocyte % 26.3 % (19-41); Mean Corp Hgb Conc 34.1 g/dL (32-36); Mean Corpuscular Hgb 29.2 pg (27.0-32.0); Mean Corpuscular Volume 85.5 fL (80-94); Mean Platelet Vol. 9.1 fl (6.2-12.0); Monocyte% 9.7 % (0-10); NRBC Flagged by Analyzer 0 % (0-5); Neutrophil # 6.89 X10^3/uL (2.7-7.7); Neutrophil % 60.8 % (47-70); Platelet Count 443 K/mm3 (150-450); RBC Distribution Width CV 13.1 % (11.6-14.6); RBC Distribution Width SD 40.6 fl (35.1-43.9); Red Blood Count 5.18 M/mm3 (4.6-6.2); White Blood Count 11.4 K/mm3 (4.4-11.0)
[2025-01-27] MEDS: Famotidine 200 MG/20 ML MDV 20 MG in 0.9% Normal Saline (Pres. free 8 ML 300 MG IV (20:10)
[2025-01-27 20:11] VITALS: BP 129/95; PULSE 78; RESP 16; O2SAT 92
[2025-01-27 20:11] LABS: Lipase 35 U/L (13-75); Pro- Brain NATRIURETIC PEPTIDE 80 pg/mL (<=450); Troponin T High Sensitivity < 6 ng/L (<=22)
[2025-01-27 20:18] LABS: ALB/GLOB Ratio 1.3 RATIO (0.9-2.4); AST(SGOT) 34 U/L (<=37); Alanine Aminotransfer ALT/SGPT 44 U/L (<=46); Albumin, Serum 4.1 g/dL (3.5-5.0); Alkaline Phosphatase 81 U/L (40-129); Anion Gap 15 (5-15); BUN 20 mg/dL (4-19); BUN/Creat Ratio 25.5 RATIO (10-20); Calcium,Total 9.2 mg/dL (7.6-11.0); Carbon Dioxide 17.8 mmol/L (21.0-32.0); Chloride 105 mmol/L (98-108); Creatinine, Serum 0.79 mg/dL (0.70-1.20); EST Glomerular Filtration Rate 120 (>60); Globulin 3.1 g/dL (2.2-4.2); Glucose 108 mg/dL (70-99); Potassium 3.7 mmol/L (3.3-5.1); Protein, Total 7.3 g/dL (5.9-8.4); Sodium Level 138 mmol/L (133-145); Total Bilirubin 0.18 mg/dL (0.00-1.30)
[2025-01-27 20:35] LABS: D-Dimer Quantitative (DVT/PE) 0.85 FEU/ug/m (0.27-0.49)
--- NOTE | 2025-01-27 20:45 | CT_ITS ---
PROCEDURE: CTA CHEST W/WO CONTRAST 01/27/2025 REASON FOR EXAM: PE TECHNIQUE: CTA axial imaging of the chest with intravenous contrast. Multiplanar and multisequence images were obtained. PATIENT PREPARATION: Per protocol CONTRAST: Isovue 370 VOLUME: 89 mL Gauge IV One or more dose reduction techniques were used (e.g., Automated exposure control, adjustment of the mA and/or kV according to patient size, use of iterative reconstruction technique). RADIATION DOSE SUMMARY: CTDlvol: 2.37+ 15.77 mGy DLP: 583.44 mGycm . COMPARISON: None. FINDINGS: Hardware: None. Lymph nodes: Unremarkable Heart: Normal. Thoracic Aorta: Normal Pulmonary Vessels: No evidence of acute pulmonary emboli through the major subsegmental branches. Lungs and Airways: The lungs are normally expanded and clear. Pleura: No pleural effusion. No pneumothorax. Upper Abdomen: Visualized portions of the upper abdominal viscera are unremarkable. Bones: Bone windows are unremarkable. CT/CTA Chest W/WO Contrast IMPRESSION: NORMAL CHEST CTA. NO EVIDENCE OF ACUTE PULMONARY EMBOLISM. Reading Location: [place] [address]
[2025-01-27] MEDS: 0.9% Normal Saline (1000mL) 1,000 ML 999 ML IV (20:55)
[2025-01-27 21:00] VITALS: BP 86/52; PULSE 92; RESP 16; O2SAT 97
[2025-01-27 22:00] VITALS: BP 121/81; PULSE 90; RESP 15; O2SAT 96
[2025-01-27 22:05] LABS: Troponin T High Sens 2 HR < 6 ng/L (<=22)
[2025-01-27 22:18] VITALS: BP 125/79; PULSE 78; RESP 19; TEMP 36.6; O2SAT 94
--- NOTE | 2025-01-27 22:18 | ED.VIS.CHEST ---
HPI History of Present Illness Chief Complaint: Chest Pain Narrative Narrative: Chief complaint and HPI: Chest pain. 34-year-old male with past medical history of cerebral palsy with developmental delay, hepatosplenomegaly presents for evaluation of midsternal chest pain. Onset of chest pain was approximately 30 minutes prior to arrival. Describes it as burning. Worse when he takes a deep breath in. States he had some slight lightheadedness and nausea with it but this resolved. No emesis. States he recently ate a large meal. Denies any fever, chills, URI symptoms, shortness of breath, vomiting. Review of systems: See HPI Medications: As listed on the chart Allergies: As listed on the chart PFSH: Per chart Vital signs: As listed on the chart. Reviewed. Physical exam: Gen: Alert, oriented, no acute distress Head: Normocephalic, atraumatic Eyes: No sclera icterus, conjunctiva clear, PERRL ENT: Moist mucous membranes Neck: Trachea midline, No JVD CV: RRR, no murmurs, no peripheral edema Resp: Lungs CTA BL, no w/r/c GI: Abd soft, non-distended, non-tender, no r/r/g Musc: Full ROM, no deformity Skin: Warm, dry Neuro: Alert, oriented, grossly intact, sensation intact Psych: Cooperative, appropriate mood and affect [facility] Medical History Abnormal findings on diagnostic imaging of other abdominal regions, including retroperitoneum Abnormal findings on diagnostic imaging of other parts of digestive tract Hepatosplenomegaly Hepatosplenomegaly Infantile cerebral palsy Depression Attention deficit hyperactivity disorder Cerebral palsy Home Medications ?Medication ?Instructions ?Recorded ?Last Taken ?Type fluoxetine 40 mg capsule 40 mg PO DAILY 04/14/24 Unknown History divalproex 250 mg tablet,delayed 250 mg PO BID 01/13/25 Unknown History release Allergy/AdvReac Type Severity Reaction Status Date / Time No Known Allergies Allergy Verified 01/27/25 19:11 Family History Mother Seizures Surgical History Hx of foot surgery Social History Smoking Status: Never smoker EXAM Physical Exam Const Vital Signs: 01/27/25 19:12 01/27/25 19:14 01/27/25 20:11 Temperature 98.6 F Temperature Source Oral Pulse Rate 83 78 Respiratory Rate 17 16 Respiratory Effort Normal Blood Pressure 136/77 H 129/95 H Blood Pressure Mean 96 106 Pulse Ox 96 92 Oxygen Delivery Method Room Air Room Air 01/27/25 21:00 01/27/25 22:00 01/27/25 22:18 Temperature 97.8 F Temperature Source Pulse Rate 92 90 78 Respiratory Rate 16 15 19 H Respiratory Effort Blood Pressure 86/52 L 121/81 H 125/79 H Blood Pressure Mean 63 94 94 Pulse Ox 97 96 94 Oxygen Delivery Method Room Air Room Air MDM MDM MDM Narrative Medical decision making narrative: 34-year-old male with past medical history of cerebral palsy with developmental delay, hepatosplenomegaly presents for evaluation of midsternal chest pain. Onset of chest pain was approximately 30 minutes prior to arrival. Describes it as burning. Worse when he takes a deep breath in. Differential diagnosis includes but is not limited to GERD, gastritis, pleurisy, myofascial spasm, suspect less likely ACS, PE, pneumonia, biliary pathology however on differential. Aspirin and Pepcid ordered for symptoms. Cardiac workup ordered. EKG and chest x-ray reviewed see below. CBC with mild leukocytosis 11.4. No anemia. CMP relatively unremarkable. No transaminitis. Lipase unremarkable. BNP unremarkable. D-dimer elevated at 0.85. Cannot rule out PE. CTA chest ordered. Will ordered NS bolus with contrast. Troponin unremarkable x 2. CTA chest negative for PE. At this point in time, no clear etiology for patient's symptoms however given that she described as burning and that it improved with aspirin and Pepcid suspect that this may be secondary to GERD. Patient was updated of all her's results. I called his mother who is his POA given that patient has developmental delay. She was informed of the workup as well and confirmed understanding. Follow-up with PCP. Return precautions explained. Impression: 1. Chest pain Lab Data Labs: Laboratory Results - last 24 hr 01/27/25 01/27/25 19:39 21:41 WBC 11.4 H RBC 5.18 Hgb 15.1 Hct 44.3 MCV 85.5 MCH 29.2 MCHC 34.1 RDW Std Deviation 40.6 RDW Coeff of Cesar 13.1 Plt Count 443 MPV 9.1 Immature Gran % (Auto) 0.700 Neut % (Auto) 60.8 Lymph % (Auto) 26.3 [place] % (Auto) 9.7 Eos % (Auto) 2.1 Baso % (Auto) 0.4 Absolute Neuts (auto) 6.9 Absolute Lymphs (auto) 2.99 Nucleated RBC % 0 D-Dimer Quant (PE/DVT) 0.85 H* Sodium 138 Potassium 3.7 Chloride 105 Carbon Dioxide 17.8 L Anion Gap 15 BUN 20 H Creatinine 0.79 Est GFR (MDRD) Non-Af 120 BUN/Creatinine Ratio 25.5 H Glucose 108 H Calcium 9.2 Total Bilirubin 0.18 AST 34 ALT 44 Alkaline Phosphatase 81 Troponin T High Sens < 6 Troponin T Hi Sens 2 Hr < 6 NT pro BNP II 80 Total Protein 7.3 Albumin 4.1 Globulin 3.1 Albumin/Globulin Ratio 1.3 Lipase 35 Radiography Diagnostic Testing: Clinical Impression(s) from Imaging Studies Chest X-Ray 01/27/25 19:45 IMPRESSION: NO ACUTE FINDINGS. Reading Location: [place] [address] Chest CTA 01/27/25 20:45 IMPRESSION: NORMAL CHEST CTA. NO EVIDENCE OF ACUTE PULMONARY EMBOLISM. Reading Location: [place] [address] Discharge Plan Triage Chief Complaint: Chest Pain Other Complaint: Lower Extremity Injury ED Provider: Nate Mueller Dx/Rx/DC Orders Clinical Impression: Chest pain Instructions: ED Chest Pain, Uncertain Cause Prescriptions: No Action fluoxetine 40 mg capsule 40 mg PO DAILY divalproex 250 mg tablet,delayed release (DR/EC) 250 mg PO BID Primary Care Provider: Care Physician,No Primary Referrals: Jean Paul Rodas MD [Med Staff - Active Staff] - 3-5 Days Care Physician,No Primary [Primary Care Provider] - Activity Restrictions/Additional Instructions: Follow-up with primary care physician. If you do not have 1 follow-up the 1 provided above. Return back to the ED if symptoms change or worsen. Print Language: Lithuanian Disposition Disposition: Home, Self Care Discharge Date/Time: 01/27/25 22:24
== END 2025-01-27 22:24 | disposition home or self-care (01) ==
PROVIDERS: Emergency Provider Surgery; Referring Provider Surgery; Visit Provider Surgery
DX: R07.9 Chest pain, unspecified (principal); G80.9 Cerebral palsy, unspecified; R16.2 Hepatomegaly with splenomegaly, not elsewhere classified
CPT/HCPCS: 71046; 71275; 80053; 83690; 83880; 84484; 85025; 85379; 93005; 96361; 96374; 99285; Q9967; A4216

== ENCOUNTER 2025-05-26 11:48 | Emergency (ER) | payer MEDICARE, MEDICAID, SELFPAY ==
[2025-05-26 11:48] VITALS: BP 110/67; PULSE 82; RESP 16; TEMP 36.5; O2SAT 99; BMI 32.9
--- NOTE | 2025-05-26 11:59 | CT_ITS ---
PROCEDURE: ABDOMEN/PELVIS W IV CONT ONLY 05/26/2025 REASON FOR EXAM: LEFT FLANK PAIN, HX SPLEENOMEGALY TECHNIQUE: Procedure Code: [id number] Modality: CT Procedure: ABDOMEN/PELVIS W IV CONT ONLY Coronal and Sagittal reconstruction series were provided. CONTRAST: Isovue 370 VOLUME: 95 mL One or more dose reduction techniques were used (e.g., Automated exposure control, adjustment of the mA and/or kV according to patient size, use of iterative reconstruction technique. RADIATION DOSE SUMMARY: CTDlvol: 50 mGy DLP: 2187 mGycm COMPARISON: May 23, 2023, June 29, 2024 FINDINGS: Lung bases: Clear. Liver: Liver is 22 cm cephalocaudal. No mass. Gallbladder: Normal. Spleen: Borderline splenomegaly Pancreas: Normal. Adrenals: Normal. Kidneys: No collecting system dilation, calculus. No mass. Bladder: Normal. Reproductive Organs: Minimal dystrophic calcification. Otherwise normal. Bowel: The stomach, small bowel and colon appear normal. Appendix: Normal Lymph nodes: None appear enlarged. Vasculature: Normal Peritoneum / Retroperitoneum: No free air, free fluid or mass. Bones: No fracture CT/Abdomen/Pelvis W IV Cont ONLY IMPRESSION: No acute abnormality. Mild liver and spleen enlargement. Reading Location: [id number]
--- NOTE | 2025-05-26 12:00 | ED.VIS.GI ---
HPI HPI - GI History of Present Illness Chief Complaint: Abd Pain Detail of Chief Complaint: Abdominal pain Informant: patient Narrative Narrative: Patient presents to the emergency department with chief complaint of left back/flank pain and abdominal pain. Symptoms ongoing for about a week. Pain is severe at times and can last hours at a time. He said no fever. He said no vomiting. He said no diarrhea. He does have a history of splenomegaly and his oncologist Dr. Mcgrath recommended that he come in and get a CT scan of his abdomen and pelvis to evaluate further. No prior abdominal surgeries. [facility] Medical History Abnormal findings on diagnostic imaging of other abdominal regions, including retroperitoneum Abnormal findings on diagnostic imaging of other parts of digestive tract Hepatosplenomegaly Hepatosplenomegaly Infantile cerebral palsy Depression Attention deficit hyperactivity disorder Cerebral palsy Home Medications ?Medication ?Instructions ?Recorded ?Last Taken ?Type fluoxetine 40 mg capsule 40 mg PO DAILY 04/14/24 Unknown History divalproex 250 mg tablet,delayed 250 mg PO BID 01/13/25 Unknown History release Allergy/AdvReac Type Severity Reaction Status Date / Time No Known Allergies Allergy Verified 05/26/25 11:50 Family History Mother Seizures Surgical History Hx of foot surgery Social History Smoking Status: Never smoker ROS ROS ED Review of Systems ROS Unobtainable: other Constitutional Constitutional ED: Reports lethargy; Denies chills, fever(s), sweats or weight loss Eyes Eyes: Denies blurry vision, change in vision or diplopia ENT ENT ED: Denies rhinorrhea or sore throat Cardiovascular Cardiovascular: Denies chest pain, orthopnea or racing heartbeat Respiratory/Chest Respiratory/Chest: Denies cough, dyspnea, dyspnea on exertion, orthopnea or sputum Gastrointestinal Gastrointestinal: Reports abdominal pain; Denies diarrhea, nausea or vomiting Genitourinary Genitourinary ED: Denies dysuria, hematuria or urinary frequency Musculoskeletal Musculoskeletal: Denies arthralgias, back pain, myalgias or neck pain Integumentary Denies abscess, Abrasions or rash Neurologic Neurologic: Denies headache(s) or weakness Psychiatric Psychiatric: Denies anxiety, depression or suicidal thoughts Endocrine Endocrinology: Denies polydipsia, polyphagia or polyuria Hematologic/Lymphatic Hematologic/Lymphatic: Denies easy bleeding, easy bruising or lymphadenopathy Allergic/Immunologic Allergic/Immunologic ED: Denies mouth swelling, tongue swelling or urticaria EXAM Physical Exam Const Vital Signs: 05/26/25 11:48 Temperature 97.7 F L Temperature Source Oral Pulse Rate 82 Respiratory Rate 16 Blood Pressure 110/67 Blood Pressure Mean 81 Pulse Ox 99 Oxygen Delivery Method Room Air Positive well nourished and well developed General Appearance ED: well developed and NAD HEENT Reports TM's clear and moist mucous membranes normocephalic and atraumatic; Negative for trauma or tenderness Tympanic Membrane ED: Yes TM's clear Eyes PERRL and EOMs intact bilaterally General Eye ED: Negative for pale conjunctiva or scleral icterus Neck no lymphadenopathy, supple and no JVD General: Negative for tenderness Chest Wall inspection of chest normal and palpation of chest normal Chest: Negative for tenderness Resp normal respiratory effort and clear to auscultation bilaterally Effort and Inspection: Negative for respiratory distress or pain with movement Auscultation: Negative for rhonchi, wheezes or diminished lung sounds Cardio regular rate, regular rhythm, S1 normal heart sound, S2 normal heart sound and no murmurs Peripheral Pulses: pulses 2+ throughout GI normal to inspection, nondistended, normoactive bowel sounds, soft to palpation, non-tender, non-distended and no masses GI Narrative: Mild CVA tenderness on the left Back/Spine no thoracic nor lumbar tenderness Back/Spine Narrative: Mild CVA tenderness on the left Extremity normal to inspection General Extremety ED: Negative for edema General Extremity: Negative for edema Neuro oriented x3, CN's II-XII intact bilaterally, no sensory deficits noted and gait normal Sensorium / Orientation: awake, alert, oriented to person, oriented to place and oriented to time Motor Exam: strength 5/5 throughout and strength abnormal Psych mental status grossly normal Skin no rashes or lesions noted and no wounds MDM MDM MDM Narrative Medical decision making narrative: Patient presents with left flank pain ongoing for about a week. Mother states it does not happen very often. Patient's oncologist was concerned due to the splenomegaly and I suspect concerned about possible splenic rupture. Clinically the patient looks well. He denies any dyspnea. He said no recent travel or surgery. IV line established. CBC with differential obtained showed a white count of 8.4 with hemoglobin 14 and platelet count of 335. Chemistries were unremarkable. LFTs were normal. Lactate normal at 1.4. CT scan of the abdomen pelvis with IV contrast showed no acute intra-abdominal pathology. Patient not having any urinary symptoms therefore will not obtain a UA at this time. Etiology of patient's flank pain unclear. He is currently pain-free and has no complaints. Lab Data Attestation: I reviewed the patient's lab results. Labs: Laboratory Results - last 24 hr 05/26/25 12:14 WBC 8.4 RBC 4.97 Hgb 14.0 Hct 41.5 MCV 83.5 MCH 28.2 MCHC 33.7 RDW Std Deviation 39.2 RDW Coeff of Cesar 13.1 Plt Count 335 MPV 9.1 Immature Gran % (Auto) 0.800 Neut % (Auto) 61.6 Lymph % (Auto) 25.9 [place] % (Auto) 8.6 Eos % (Auto) 2.6 Baso % (Auto) 0.5 Absolute Neuts (auto) 5.2 Absolute Lymphs (auto) 2.17 Nucleated RBC % 0 Sodium 139 Potassium 4.0 Chloride 104 Carbon Dioxide 22.6 Anion Gap 12 BUN 16 Creatinine 0.59 L Estim Creat Clear Calc 213.24 Est GFR (MDRD) Non-Af 130 BUN/Creatinine Ratio 26.5 H Glucose 103 H Lactic Acid 1.4 Calcium 9.5 Total Bilirubin 0.29 AST 26 ALT 43 Alkaline Phosphatase 91 Total Protein 6.8 Albumin 4.0 Globulin 2.8 Albumin/Globulin Ratio 1.4 Radiography Diagnostic Testing: Clinical Impression(s) from Imaging Studies Abdomen/Pelvis CT 05/26/25 11:59 IMPRESSION: No acute abnormality. Mild liver and spleen enlargement. Reading Location: [facility] Discharge Plan Triage Chief Complaint: Abd Pain ED Provider: Alina Mckeon Dx/Rx/DC Orders Clinical Impression: Acute flank pain Instructions: ED Flank Pain with Uncertain Cause Prescriptions: No Action fluoxetine 40 mg capsule 40 mg PO DAILY divalproex 250 mg tablet,delayed release (DR/EC) 250 mg PO BID Primary Care Provider: Jose Correa Referrals: Care Physician,No Primary [Non-Staff, Medical] Print Language: [place] Disposition Disposition: Home, Self Care
[2025-05-26] MEDS: 0.9% Normal Saline (1000mL) 1,000 ML 125 ML IV (12:51)
[2025-05-26 12:59] LABS: Hematocrit 41.5 % (40-54); Hemoglobin 14.0 g/dL (13.0-16.5); Immature Granulocytes Count 0.070 X10^3/uL (0.0-0.0); Mean Corp Hgb Conc 33.7 g/dL (32-36); Mean Corpuscular Volume 83.5 fL (80-94); Mean Platelet Vol. 9.1 fl (6.2-12.0); NRBC Flagged by Analyzer 0 % (0-5); Platelet Count 335 K/mm3 (150-450); RBC Distribution Width CV 13.1 % (11.6-14.6); RBC Distribution Width SD 39.2 fl (35.1-43.9); Red Blood Count 4.97 M/mm3 (4.6-6.2); White Blood Count 8.4 K/mm3 (4.4-11.0)
[2025-05-26 13:22] LABS: AST(SGOT) 26 U/L (<=37); Alanine Aminotransfer ALT/SGPT 43 U/L (<=46); Albumin, Serum 4.0 g/dL (3.5-5.0); Alkaline Phosphatase 91 U/L (40-129); Anion Gap 12 (5-15); BUN 16 mg/dL (4-19); BUN/Creat Ratio 26.5 RATIO (10-20); Calcium,Total 9.5 mg/dL (7.6-11.0); Carbon Dioxide 22.6 mmol/L (21.0-32.0); Chloride 104 mmol/L (98-108); Estimated Creatinine Clearance 213.24 ml/min (50-250); Globulin 2.8 g/dL (2.2-4.2); Glucose 103 mg/dL (70-99); Potassium 4.0 mmol/L (3.3-5.1)
[2025-05-26 13:55] VITALS: BP 131/83; PULSE 76; RESP 16; TEMP 36.5; O2SAT 96
== END 2025-05-26 13:56 | disposition home or self-care (01) ==
PROVIDERS: Emergency Provider Emergency Medicine; PCP Family Medicine; Visit Provider Emergency Medicine
DX: R10.9 Unspecified abdominal pain (principal); R16.2 Hepatomegaly with splenomegaly, not elsewhere classified
CPT/HCPCS: 74177; 80053; 83605; 85025; 96360; 99283; Q9967; A4216